=== PATIENT | female | born 1945 | race Caucasian/White ===

== ENCOUNTER 2023-01-23 14:51 | Outpatient (REF) | payer MEDICARE, SELFPAY ==
[2023-01-25 09:09] LABS: IgE 436 IU/mL (<158)
[2023-01-25 09:58] LABS: IgA 422 mg/dL (85-499); IgG 984 mg/dL (610-1616); IgM 84 mg/dL (35-242)
== END 2023-01-23 14:52 | disposition home or self-care (01) ==
LOC: LBN 14:51
PROVIDERS: PCP Registered Nurse; Visit Provider Student in an Organized Health Care Education/Training Program
DX: J47.9 Bronchiectasis, uncomplicated (principal)
CPT/HCPCS: 82784; 82785

== ENCOUNTER 2023-02-02 02:15 | Outpatient (CLI) | payer MEDICARE, SELFPAY ==
[2023-02-02] MEDS: Albuterol HFA 18 GM 200 PUFF INH IH (14:36)
[2023-02-02] MEDS: Inhaler, Assist Device 1 EACH MC (14:37)
--- NOTE | 2023-02-06 09:04 | PFT_ITS ---
Date of service: 02/02/23 Time of Service: 13:05 Pulmonary Function Test Result Indications: Bronchiectasis Interpretation Spirometry: There is severe airflow limitation. There is no bronchodilator response. Brandon metry appears restrictive. Lung Volumes: There is air trapping Diffusion Capacity: Patient unable to perform Airway Pressure: Increased airways resistance. Impression Severe airflow obstruction with air trapping and increased airways resistance. Diffusion unable to be performed. Clinical Correlation therefore is recommended.
== END 2023-02-02 02:16 | disposition home or self-care (01) ==
LOC: RT 02:16
PROVIDERS: PCP Registered Nurse; Visit Provider Student in an Organized Health Care Education/Training Program
DX: J47.1 Bronchiectasis with (acute) exacerbation (principal)
CPT/HCPCS: 94060; 94726

== ENCOUNTER 2023-07-04 16:16 | Inpatient (IN) | payer MEDICARE, SELFPAY ==
[2023-07-04] VITALS (68 sets, daily range): BP systolic 81–188; BP diastolic 36–88; PULSE 60–116; RESP 1–56; TEMP 36.5–36.9; O2SAT 74–100
--- NOTE | 2023-07-04 16:15 | RT.EKG_ITS ---
APPROVED REPORT Exam: Resting ECG Reason for Exam: sob Patient Location: E HR:81 bpm ECG Measurements Heart Rate 81 AXIS VT 146 P 71 QRSd 100 QRS 79 QT 359 T 54 QTc 417 Conclusion Sinus rhythm...normal P axis, V-rate 60- 99 Normal sinus rhythm at a rate of 81 with interventricular conduction delay and QRS of 100 ms. Normal axis. QTc and VT within normal limits. No acute injury manner. No prior for comparison.
--- NOTE | 2023-07-04 16:15 | DI.RAD_ITS ---
Exam(s) XR PORTABLE CHEST AP EXAM: XR PORTABLE CHEST AP CLINICAL HISTORY: SOB, PUI. TECHNIQUE: 2D digital imaging was performed. COMPARISON: No exams were available for comparison FINDINGS: Single AP portable view. Heart size is upper normal. The mediastinum is not widened. COPD findings but no confluent infiltrates nor pleural effusions. No pulmonary edema. IMPRESSION: No acute pulmonary findings on this single AP portable view of the chest. DATA REPOSITORY: RADIATION DOSE DELIVERED:
--- NOTE | 2023-07-04 16:36 | ED.GENADUL_ITS ---
Discharge Plan Discharge Details Chief Complaint: SOB Clinical Impression: COPD exacerbation, Bronchiectasis Admit Date/Time: 07/04/23 21:02 Admit Provider: Nilesh Johns Attending Provider: Nilesh Johns Primary Care Provider: JULIA BILLY ED Provider: Karla Hoffmann Discharge Data Discharge Date/Time-TO BE ENTERED AT DEPARTURE: 07/04/23 22:09 Medical Decision Making 77-year-old female with a past medical history of coronary artery disease, hyper tension, COPD, bronchiectasis with a recent diagnosis of pneumonia being treated with Bactrim and levofloxacin presents to the ER after worsening shortness of breath and congested sounding cough over the last couple weeks. Patient was sent here by the pulmonology office. She had been refusing to be evaluated in the emergency department. She does have increased shortness of breath with activity feeling lightheaded. She did take an albuterol neb this morning. She did finish her antibiotics on Monday. She is prescribed Innozide and albuterol inhaler. Upon arrival she is tachypneic, pursed lip breathing, prolonged expiratory period, she does have rhonchi bilaterally diminished in the bases, congestedcough, RT called and is at BS. Patient back down to 2L N/C which is her baseline. RT to obtain sputum culture, work-up ordered including CBC CMP, serial troponins, VBG, lactate and blood cultures. FLUVID swab, portable chest x-ray. DuoNeb ordered, 125 mg Solu-Medrol. VBG shows pH of 7.25, PCO2 65 bicarb 29 lactate is 2.0. No leukocytosis platelet count is 407 500 cc normal saline IV bolus ordered, BiPAP ordered, RT aware. 1739: Patient placed on BIPAP, tolerating well per RT, ABG ordered for 1809. ABG shows improvement in PH and CO2, CO2 48 down from 65. 1843: Patient had a break from BIpap, is being placed back on Bipap, I did discuss recommendation for admission with patient and daughter who are agreeable to admission, I did discuss code status with her, she does wish to be intubated and resuscitated if needed. 1941: Patient took Bipap off, RT paged. Repeat Trop negative. 2010: Hospitalist paged 2017: Discussed case with Dr. Johns, he agrees to come evaluate patient. Dr. Johns at BS for eval. Patient to be transferred up to floor. This text was generated using [employer] dictation system, please disregard any oddities of phrase or misspellings. Medical Records Medical records reviewed: Yes I reviewed the patient's medical records. Imaging Data Radiologic Study: Imaging: X-Ray Radiologist's impression: Exam: XR Chest Exam date and time: 07/04/2023 5:55 PM Age: 77 years old Clinical indication: Other: SOB, pui TECHNIQUE: Imaging protocol: Radiologic exam of the chest. Views: 1 view. COMPARISON: CT CHEST LOW DOSE FOLLOW UP 02/23/2022 3:07 PM FINDINGS: Lungs: Chronic changes in both lung bases. Superimposed infiltrate not excluded. Pleural spaces: Unremarkable. No pleural effusion. No pneumothorax. Heart/Mediastinum: Unremarkable. No cardiomegaly. Bones/joints: Unremarkable. IMPRESSION: Chronic underlying interstitial lung disease. Superimposed infi ltrate not excluded. Lab Data Lab results reviewed: Yes I reviewed the patient's lab results. Labs: 07/04/23 18:34 Sputum - Expectorated Sputum Culture - Pending 07/04/23 18:34 Sputum - Expectorated Gram Stain - Pending 07/04/23 17:20 Blood Blood Culture - Pending 07/04/23 16:42 Blood Blood Culture - Pending Laboratory Tests Range/Units 07/04/23 07/04/23 07/04/23 16:42 16:42 16:42 WBC (4.4-10.8) 10^3/uL 10.56 RBC (3.93-5.22) 10^6/uL 3.83 L Hgb (11.2-15.7) g/dL 11.6 Hct (36.0-46.0) % 36.5 MCV (80-95) fL 95 MCH (27.0-33.0) pg 30.3 MCHC (32.0-36.0) % 31.8 L RDW (11.7-14.6) % 12.1 Plt Count (130-400) 10^3/uL 407 H MPV (8.0-11.0) fL 9.1 Immature Gran % 0.3 Neutrophils % 86.2 Lymphocytes % 6.6 Monocytes % 5.4 Eosinophils % 0.9 Basophils % 0.6 Nucleated RBC % (0.0-0.3) % 0.0 Absolute Neutrophils (1.2-6.7) 10^3/uL 9.10 H Absolute Lymphocytes (1.2-3.4) 10^3/uL 0.70 L Absolute Monocytes (0.1-0.8) 10^3/uL 0.57 Absolute Eosinophils (0.0-0.7) 10^3/uL 0.10 Absolute Basophils (0.0-0.2) 10^3/uL 0.06 ABG Sample Site ABG pH (7.35-7.45) ABG pCO2 (35-45) mmHg ABG pO2 (80-105) mmHg ABG HCO3 (22-26) mmol/L ABG Total CO2 (23-27) mmol/L ABG O2 Saturation (95-98) % ABG Base Excess (-2-3) mmol/L VBG pH (7.31-7.41) VBG pCO2 (41-51) mmHg VBG pO2 mmHg VBG HCO3 (23-28) mmol/L VBG Total CO2 (24-29) mmol/L VBG O2 Saturation % VBG Base Excess (-2-3) mmol/L VBG Lactate (0.6-1.4) mmol/L 2.0 H FiO2 % Sodium (136-145) mmol/L 130 L Potassium (3.5-5.1) mmol/L 4.7 Chloride (98-107) mmol/L 93 L Carbon Dioxide (21.0-32.0) mmol/L 28.4 Anion Gap (3-11) mmol/L 8.6 BUN (7-18) mg/dL 31 H Creatinine (0.55-1.02) mg/dL 1.7 H Est GFR (CKD-EPI 2020) (mL/min/1.73m2) 30.70 Glucose (74-106) mg/dL 123 H Calcium (8.5-10.1) mg/dL 10.0 Magnesium (1.8-2.4) mg/dL 2.1 Total Bilirubin (0.2-1.0) mg/dL 0.3 AST (15-37) U/L 25 ALT (14-59) U/L 20 Alkaline Phosphatase (46-116) U/L 77 Troponin I (<or=60) ng/L < 50 NT-Pro-B Natriuret Pep (<300) pg/mL 511 H Total Protein (6.4-8.2) g/dL 9.1 H Albumin (3.4-5.0) g/dL 4.1 COVID-19 Source SARS-CoV-2 (PCR) (Negative) Influenza Type A (PCR) (Negative) Influenza Type B (PCR) (Negative) RSV (PCR) (Negative) Range/Units 07/04/23 07/04/23 07/04/23 16:42 16:42 18:15 WBC (4.4-10.8) 10^3/uL RBC (3.93-5.22) 10^6/uL Hgb (11.2-15.7) g/dL Hct (36.0-46.0) % MCV (80-95) fL MCH (27.0-33.0) pg MCHC (32.0-36.0) % RDW (11.7-14.6) % Plt Count (130-400) 10^3/uL MPV (8.0-11.0) fL Immature Gran % Neutrophils % Lymphocytes % Monocytes % Eosinophils % Basophils % Nucleated RBC % (0.0-0.3) % Absolute Neutrophils (1.2-6.7) 10^3/uL Absolute Lymphocytes (1.2-3.4) 10^3/uL Absolute Monocytes (0.1-0.8) 10^3/uL Absolute Eosinophils (0.0-0.7) 10^3/uL Absolute Basophils (0.0-0.2) 10^3/uL ABG Sample Site Right Radial ABG pH (7.35-7.45) 7.33 L ABG pCO2 (35-45) mmHg 48 H ABG pO2 (80-105) mmHg 87 ABG HCO3 (22-26) mmol/L 26 ABG Total CO2 (23-27) mmol/L 24 ABG O2 Saturation (95-98) % 97 ABG Base Excess (-2-3) mmol/L -1 VBG pH (7.31-7.41) 7.25 L VBG pCO2 (41-51) mmHg 65 H* VBG pO2 mmHg 26 VBG HCO3 (23-28) mmol/L 29 H VBG Total CO2 (24-29) mmol/L 28 VBG O2 Saturation % 35 VBG Base Excess (-2-3) mmol/L 2 VBG Lactate (0.6-1.4) mmol/L FiO2 % 30 Sodium (136-145) mmol/L Potassium (3.5-5.1) mmol/L Chloride (98-107) mmol/L Carbon Dioxide (21.0-32.0) mmol/L Anion Gap (3-11) mmol/L BUN (7-18) mg/dL Creatinine (0.55-1.02) mg/dL Est GFR (CKD-EPI 2020) (mL/min/1.73m2) Glucose (74-106) mg/dL Calcium (8.5-10.1) mg/dL Magnesium (1.8-2.4) mg/dL Total Bilirubin (0.2-1.0) mg/dL AST (15-37) U/L ALT (14-59) U/L Alkaline Phosphatase (46-116) U/L Troponin I (<or=60) ng/L NT-Pro-B Natriuret Pep (<300) pg/mL Total Protein (6.4-8.2) g/dL Albumin (3.4-5.0) g/dL COVID-19 Source Nasopharynx SARS-CoV-2 (PCR) (Negative) Negative Influenza Type A (PCR) (Negative) Negative Influenza Type B (PCR) (Negative) Negative RSV (PCR) (Negative) Negative HPI General Mode of arrival: wheelchair . Date/Time Provider Initiated Documentation: 07/04/23 16:18 . Limitations to Documentation: no limitations . Information obtained by: patient, family, RN notes reviewed and old records reviewed . HPI Narrative: 77-year-old female with a past medical history of coronary artery disease, hypertension, COPD, bronchiectasis with a recent diagnosis of pneumonia being treated with Bactrim and levofloxacin presents to the ER after worsening shortness of breath and junky sounding cough over the last couple weeks. Patient was sent here by the pulmonology office. She had been refusing to be evaluated in the emergency department. She does have increased shortness of breath with activity feeling lightheaded. She did take an albuterol neb this morning. She did finish her antibiotics on Monday. She is prescribed Innozide and albuterol inhaler. Upon arrival she is tachypneic, pursed lip breathing, prolonged expiratory period, she does have rhonchi bilaterally diminished in the bases, congestedcough, RT called and is at BS. Patient back down to 2L N/C which is her baseline. Related Data Home Medications Medication Instructions Recorded Confirmed cefuroxime axetil 500 mg tablet 500 mg PO Q12H 09/23/22 05/04/23 guaifenesin 100 mg/5 mL oral syrup 200 mg PO DIRECTED PRN 09/23/22 07/04/23 metoprolol succinate 50 mg 50 mg PO DAILY 09/23/22 07/04/23 tablet,extended release 24 hr ramipril 5 mg capsule 5 mg PO DAILY 09/23/22 07/04/23 simvastatin 20 mg tablet 20 mg PO QHS 09/23/22 07/04/23 umeclidinium 62.5 mcg-vilanterol 1 inh inhalation DAILY 09/23/22 07/04/23 25 mcg/actuation powdr for inhalation (Anoro Ellipta) albuterol sulfate 90 mcg/actuation 2 puff inhalation Q6H PRN 01/23/23 07/04/23 aerosol inhaler budesonide 0.5 mg/2 mL suspension 0.5 mg (2 mL) inhalation BID #60 mL 05/08/23 07/04/23 for nebulization sodium chloride 7 % for 4 ml inhalation BID 30 days #240 mL 05/08/23 07/04/23 nebulization cefdinir 300 mg capsule 300 mg PO BID #20 caps 06/22/23 sulfamethoxazole 800 1 tab PO BID #20 tabs 06/22/23 mg-trimethoprim 160 mg tablet (Bactrim DS) albuterol sulfate 2.5 mg/3 mL 2.5 mg (3 mL) inhalation QID PRN 06/24/23 07/04/23 (0.083 %) solution for nebulization shortness of breath or wheezing #180 mL blunt needle, disposable 18 x 1 #100 ea 07/04/23 07/04/23 1/ ceftazidime 1 gram solution for 500 mg IV Q12H 30 days #25 ea 07/04/23 07/04/23 injection sodium chloride 0.9 % (flush) 5 ml IV DAILY 90 days #500 mL 07/04/23 07/04/23 Previous Rx's Medication Instructions Recorded budesonide 0.5 mg/2 mL suspension 0.5 mg (2 mL) inhalation BID #60 mL 05/08/23 for nebulization sodium chloride 7 % for 4 ml inhalation BID 30 days #240 mL 05/08/23 nebulization cefdinir 300 mg capsule 300 mg PO BID #20 caps 06/22/23 sulfamethoxazole 800 1 tab PO BID #20 tabs 06/22/23 mg-trimethoprim 160 mg tablet (Bactrim DS) albuterol sulfate 2.5 mg/3 mL 2.5 mg (3 mL) inhalation QID PRN 06/24/23 (0.083 %) solution for nebulization shortness of breath or wheezing #180 mL blunt needle, disposable 18 x 1 #100 ea 07/04/23 1 ceftazidime 1 gram solution for 500 mg IV Q12H 30 days #25 ea 07/04/23 injection sodium chloride 0.9 % (flush) 5 ml IV DAILY 90 days #500 mL 07/04/23 Allergies Allergy/AdvReac Type Severity Reaction Status Date / Time seasonal Allergy Unknown Uncoded 07/04/23 17:10 General Stated Complaint: SOB IRON: 2 Review of Systems All systems reviewed & are unremarkable except as noted in HPI and below Cardiovascular Cardiovascular: Reports dyspnea Respiratory Respiratory: Reports cough, Reports excessive phlegm production and Reports dyspnea PFSH All Active Problems COPD exacerbation (Acute) Personal history of nicotine dependence (Acute) CAD (coronary artery disease) (Chronic) Dependence on supplemental oxygen (Acute) Postmenopausal (Acute) Pain of right hip joint (Acute) Overweight (Acute) Osteopenia (Acute) Iron deficiency (Acute) Hypertensive disorder (Chronic) Familial combined hyperlipidemia (Acute) Depression (Chronic) COPD (chronic obstructive pulmonary disease) (Chronic) Bronchiectasis (Acute) Angio-edema (Acute) Allergic rhinitis (Acute) Acute exacerbation of chronic obstructive airways disease (Acute) Abnormal findings on diagnostic imaging of breast (Acute) Medical History Closed fracture of thoracic vertebra Surgical History H/O breast reconstruction left nipple removal 10/09/1998 H/O cataract extraction 11/09/16 H/O dilation and curettage Of uterus 10/09/83 H/O esophagogastroduodenoscopy History of colonoscopy 08/09/06 History of right oophorectomy right ovarian cyst Family History Mother Breast cancer Hx of heart artery stent Father Cancer Hx of coronary artery bypass surgery Sister Diabetes Hx of heart artery stent Brother Hypertension Social History Smoking/Tobacco Use Status: Former Tobacco Use tobacco type: cigarettes Quit D ate: 02/06/10 Pack-years: 46 Smoking risk assessment performed?: Yes Housing: house Do you feel safe at home: Yes Do you feel safe in your relationship?: Yes Exam Narrative Exam Narrative: Constitutional: Alert and oriented x3. Appears stated age. Normal body habitus. Head: Normocephalic, no trauma. Eyes: Pupils PERRL, Red reflex noted, EOM's intact. Eyelids symmetrical without lesions, discharge, or swelling. Chest: RRR, Normal S1, S2, distal pulses intact. Resp: Increased work of breathing, pursed lip breathing, prolonged expiration., Tripod position. Rales noted upper left, is hypoxic upon arrival on room air. Diminished to the bases. Abdomen: Soft, non-distended, Normoactive bowel sounds all 4 quads. Musculoskeletal: Unable to assess gait. No pitting edema noted to lower extremities. Skin: No suspicious rashes or lesions. Capillary refill less than 2 sec. Neurologic: Cranial nerves II-XII intact. Alert and oriented x 3. Motor: No deficits noted. Sensory: Intact bilaterally all 4 extremities. Hematologic/Lymphatic: No ecchymosis, no lymphadenopathy. Resp Effort & Inspection: labored, pursed lip breathing, tachypneic, tripod positioning, uses accessory muscles and prolonged expiratory phase Auscultation: diminished lung sounds bilaterally and rales on the right in the upper lung milligan and on the left in the upper lung milligan Cardio Rate: regular rate Course Vital Signs Vital signs: Vital Signs Temperature 36.5 C 07/04/23 16:20 Pulse 60 07/04/23 16:20 Respiratory Rate 30 H 07/04/23 16:20 Blood Pressure 188/60 H 07/04/23 16:20 Pulse Oximetry 74 L 07/04/23 16:20 Temperature 36.5 C 07/04/23 16:20 Temperature Source Oral 07/04/23 16:20 Pulse 60 07/04/23 16:20 Respiratory Rate 30 H 07/04/23 16:20 Blood Pressure 188/60 H 07/04/23 16:20 Blood Pressure Position Sitting 07/04/23 16:20 Pulse Oximetry 74 L 07/04/23 16:20 Oxygen Delivery Method Nasal Cannula 07/04/23 16:20 Oxygen Flow Rate 2 07/04/23 16:20 Pain Level 0 07/04/23 16:20 Lab/Test Results Lab/Test Results: 07/04/23 16:22 Blood Blood Culture - Pending 07/04/23 16:22 Blood Blood Culture - Pending
[2023-07-04] MEDS: Albuterol 2.5 MG/3 ML INH SOLN VIAL (16:42)
[2023-07-04 16:57] LABS: BE (Venous) 2 mmol/L (-2-3); HCO3 (Venous) 29 mmol/L (23-28); O2 Sat (Venous) 35 %; TCO2 (Venous) 28 mmol/L (24-29); pH (Venous) 7.25 (7.31-7.41); pO2 (Venous) 26 mmHg
[2023-07-04 16:58] LABS: Abs Immature Grans 0.03 10^3/uL (0.0-0.06); Absolute Basophil Count 0.06 10^3/uL (0.0-0.2); Absolute Monocyte Count 0.57 10^3/uL (0.1-0.8); Basophils % 0.6; Eosinophils % 0.9; HCT 36.5 % (36.0-46.0); HGB 11.6 g/dL (11.2-15.7); Immature Grans % 0.3; Lymphocytes % 6.6; MCH 30.3 pg (27.0-33.0); MCHC 31.8 % (32.0-36.0); MCV 95 fL (80-95); MPV 9.1 fL (8.0-11.0); Monocytes % 5.4; Neutrophils % 86.2; Platelet Count 407 10^3/uL (130-400); RBC 3.83 10^6/uL (3.93-5.22); RDW 12.1 % (11.7-14.6); RDW-SD 42.4 fL; WBC 10.56 10^3/uL (4.4-10.8)
[2023-07-04] MEDS: methylPREDNISolone SUCC 125 MG VIAL IVP (16:58)
[2023-07-04 16:59] LABS: pCO2 (Venous) 65 mmHg (41-51)
[2023-07-04 17:22] LABS: ALT 20 U/L (14-59); AST 25 U/L (15-37); Albumin 4.1 g/dL (3.4-5.0); Alkaline Phosphatase 77 U/L (46-116); Anion Gap 8.6 mmol/L (3-11); BUN 31 mg/dL (7-18); Bilirubin, Total 0.3 mg/dL (0.2-1.0); CO2 28.4 mmol/L (21.0-32.0); CREATININE 1.7 mg/dL (0.55-1.02); Chloride 93 mmol/L (98-107); Glucose 123 mg/dL (74-106); Magnesium 2.1 mg/dL (1.8-2.4); NT-proBNP 511 pg/mL (<300); Potassium 4.7 mmol/L (3.5-5.1); Sodium 130 mmol/L (136-145); Total Protein 9.1 g/dL (6.4-8.2); Troponin I < 50 ng/L (<or=60)
[2023-07-04] MEDS: Normal Saline 500 ML IV (17:30)
[2023-07-04 17:48] LABS: COVID-19 PCR Negative (Negative); Influenza A PCR Negative (Negative); Influenza B PCR Negative (Negative); RSV PCR Negative (Negative)
[2023-07-04 17:50] LABS: Source Nasopharynx
[2023-07-04 18:23] LABS: BE -1 mmol/L (-2-3); HCO3 26 mmol/L (22-26); pCO2 48 mmHg (35-45); pH 7.33 (7.35-7.45); pO2 87 mmHg (80-105); sO2 97 % (95-98); tCO2 24 mmol/L (23-27)
[2023-07-04 18:24] LABS: Site Right Radial
[2023-07-04 18:25] LABS: FIO2 30 %
--- NOTE | 2023-07-04 19:41 | DI.VRAD_ITS ---
PROCEDURE INFORMATION: Exam: XR Chest Exam date and time: 07/04/2023 5:55 PM Age: 77 years old Clinical indication: Other: SOB, pui TECHNIQUE: Imaging protocol: Radiologic exam of the chest. Views: 1 view. COMPARISON: CT CHEST LOW DOSE FOLLOW UP 02/23/2022 3:07 PM FINDINGS: Lungs: Chronic changes in both lung bases. Superimposed infiltrate not excluded. Pleural spaces: Unremarkable. No pleural effusion. No pneumothorax. Heart/Mediastinum: Unremarkable. No cardiomegaly. Bones/joints: Unremarkable. IMPRESSION: Chronic underlying interstitial lung disease. Superimposed infiltrate not excluded. Dictated and Authenticated by: Laura Luo MD. Ordering:BRICE Acosta MD
[2023-07-04 20:03] LABS: Troponin I < 50 ng/L (<or=60)
[2023-07-04] MEDS: cefTAZidime 1,000 MG in Normal Saline 100 ML 200 MG IVPB (20:11)
--- NOTE | 2023-07-04 20:52 | HPE_ITS ---
Date of service: 07/04/23 Time of Service: 20:52 Assessment and Plan Assessment and plan (1) COPD exacerbation: Status: Acute Assessment and plan: COPD exacerbation. Will continue updrafts and steroids and has begun Ceftazidime here in ER. Will maintain on BiPaP overnight. I reviewed ADs in detail, with daughter present. After due consideration patient requests DNR/DNI status. History of Present Illness History of Present Illness Chief Complaint: SOB Narrative: 77 female with COPD, bronchiectasis. Has been on Bactrim/Levaquin for reported pneumonia. Seen in f/u in clinic and advised ER for worsening SOB. In ER on arrival was tachypneic with pursed lip breating. Initial VBG showed pH 7.25 with pCO2 65. Has received updrafts and steropids, and placed on BiPaP. F/u ABG shows pH 7.33, pCO2 48. No fever or leukocytosis; CXR shows no definite pneumonia. Patient is reported as having sputum colonized with Achromonas, sensitive to Ceftazidime, and Pulmonary had requested this be started. Patient statesd she feels improved, though not back to baseline. Review of Systems Narrative: per HPI PFSH All Active Problems COPD exacerbation (Acute) Personal history of nicotine dependence (Acute) CAD (coronary artery disease) (Chronic) Dependence on supplemental oxygen (Acute) Postmenopausal (Acute) Pain of right hip joint (Acute) Overweight (Acute) Osteopenia (Acute) Iron deficiency (Acute) Hypertensive disorder (Chronic) Familial combined hyperlipidemia (Acute) Depression (Chronic) COPD (chronic obstructive pulmonary disease) (Chronic) Bronchiectasis (Acute) Angio-edema (Acute) Allergic rhinitis (Acute) Acute exacerbation of chronic obstructive airways disease (Acute) Abnormal findings on diagnostic imaging of breast (Acute) Medical History Closed fracture of thoracic vertebra Surgical History H/O breast reconstruction left nipple removal 10/09/1998 H/O cataract extraction 11/09/16 H/O dilation and curettage Of uterus 10/09/83 H/O esophagogastroduodenoscopy History of colonoscopy 08/09/06 History of right oophorectomy right ovarian cyst Family History Mother Breast cancer Hx of heart artery stent Father Cancer Hx of coronary artery bypass surgery Sister Diabetes Hx of heart artery stent Brother Hypertension Social History Smoking/Tobacco Use Status: Former Tobacco Use tobacco type: cigarettes Quit Date: 02/06/10 Pack-years: 46 Smoking risk assessment performed?: Yes Housing: house Do you feel safe at home: Yes Do you feel safe in your relationship?: Yes Meds Allergies and Home Medications Allergies Allergy/AdvReac Type Severity Reaction Status Date / Time seasonal Allergy Unknown Uncoded 07/04/23 17:10 Home Medications Medication Instructions Recorded Confirmed Type cefuroxime axetil 500 mg tablet 500 mg PO Q12H 09/23/22 05/04/23 History guaifenesin 100 mg/5 mL oral syrup 200 mg PO DIRECTED PRN 09/23/22 07/04/23 History metoprolol succinate 50 mg 50 mg PO DAILY 09/23/22 07/04/23 History tablet,extended release 24 hr ramipril 5 mg capsule 5 mg PO DAILY 09/23/22 07/04/23 History simvastatin 20 mg tablet 20 mg PO QHS 09/23/22 07/04/23 History umeclidinium 62.5 mcg-vilanterol 1 inh inhalation DAILY 09/23/22 07/04/23 History 25 mcg/actuation powdr for inhalation (Anoro Ellipta) albuterol sulfate 90 mcg/actuation 2 puff inhalation Q6H PRN 01/23/23 07/04/23 History aerosol inhaler budesonide 0.5 mg/2 mL suspension 0.5 mg (2 mL) inhalation BID #60 mL 05/08/23 07/04/23 Rx for nebulization sodium chloride 7 % for 4 ml inhalation BID 30 days #240 mL 05/08/23 07/04/23 Rx nebulization cefdinir 300 mg capsule 300 mg PO BID #20 caps 06/22/23 Rx sulfamethoxazole 800 1 tab PO BID #20 tabs 06/22/23 Rx mg-trimethoprim 160 mg tablet (Bactrim DS) albuterol sulfate 2.5 mg/3 mL 2.5 mg (3 mL) inhalation QID PRN 06/24/23 07/04/23 Rx (0.083 %) solution for nebulization shortness of breath or wheezing #180 mL blunt needle, disposable 18 x 1 #100 ea 07/04/23 07/04/23 Rx 1/2 ceftazidime 1 gram solution for 500 mg IV Q12H 30 days #25 ea 07/04/23 07/04/23 Rx injection sodium chloride 0.9 % (flush) 5 ml IV DAILY 90 days #500 mL 07/04/23 07/04/23 Rx Exam Narrative Exam Narrative: 139/74, 88, 36.5, 36, 96% 30% BiPaP. HEENT atraumatic; neck supple; lungs diminished, end expiratory wheeze; heart distant/RRR; abdomen soft and NT; extremities w/o edema; neuro Ox3, lucid, moves all 4s Results Labs 07/04/23 16:42 07/04/23 16:42 Labs: Laboratory Results - last 24 hr 07/04/23 07/04/23 07/04/23 16:42 16:42 16:42 WBC 10.56 RBC 3.83 L Hgb 11.6 Hct 36.5 MCV 95 MCH 30.3 MCHC 31.8 L RDW 12.1 Plt Count 407 H MPV 9.1 Immature Gran % 0.3 Neutrophils % 86.2 Lymphocytes % 6.6 Monocytes % 5.4 Eosinophils % 0.9 Basophils % 0.6 Nucleated RBC % 0.0 Absolute Neutrophils 9.10 H Absolute Lymphocytes 0.70 L Absolute Monocytes 0.57 Absolute Eosinophils 0.10 Absolute Basophils 0.06 ABG Sample Site ABG pH ABG pCO2 ABG pO2 ABG HCO3 ABG Total CO2 ABG O2 Saturation ABG Base Excess VBG pH VBG pCO2 VBG pO2 VBG HCO3 VBG Total CO2 VBG O2 Saturation VBG Base Excess VBG Lactate 2.0 H FiO2 Sodium 130 L Potassium 4.7 Chloride 93 L Carbon Dioxide 28.4 Anion Gap 8.6 BUN 31 H Creatinine 1.7 H Est GFR (CKD-EPI 2020) 30.70 Glucose 123 H Calcium 10.0 Magnesium 2.1 Total Bilirubin 0.3 AST 25 ALT 20 Alkaline Phosphatase 77 Troponin I < 50 NT-Pro-B Natriuret Pep 511 H Total Protein 9.1 H Albumin 4.1 COVID-19 Source SARS-CoV-2 (PCR) Influenza Type A (PCR) Influenza Type B (PCR) RSV (PCR) 07/04/23 07/04/23 07/04/23 16:42 16:42 18:15 WBC RBC Hgb Hct MCV MCH MCHC RDW Plt Count MPV Immature Gran % Neutrophils % Lymphocytes % Monocytes % Eosinophils % Basophils % Nucleated RBC % Absolute Neutrophils Absolute Lymphocytes Absolute Monocytes Absolute Eosinophils Absolute Basophils ABG Sample Site Right Radial ABG pH 7.33 L ABG pCO2 48 H ABG pO2 87 ABG HCO3 26 ABG Total CO2 24 ABG O2 Saturation 97 ABG Base Excess -1 VBG pH 7.25 L VBG pCO2 65 H* VBG pO2 26 VBG HCO3 29 H VBG Total CO2 28 VBG O2 Saturation 35 VBG Base Excess 2 VBG Lactate FiO2 30 Sodium Potassium Chloride Carbon Dioxide Anion Gap BUN Creatinine Est GFR (CKD-EPI 2020) Glucose Calcium Magnesium Total Bilirubin AST ALT Alkaline Phosphatase Troponin I NT-Pro-B Natriuret Pep Total Protein Albumin COVID-19 Source Nasopharynx SARS-CoV-2 (PCR) Negative Influenza Type A (PCR) Negative Influenza Type B (PCR) Negative RSV (PCR) Negative 07/04/23 19:26 WBC RBC Hgb Hct MCV MCH MCHC RDW Plt Count MPV Immature Gran % Neutrophils % Lymphocytes % Monocytes % Eosinophils % Basophils % Nucleated RBC % Absolute Neutrophils Absolute Lymphocytes Absolute Monocytes Absolute Eosinophils Absolute Basophils ABG Sample Site ABG pH ABG pCO2 ABG pO2 ABG HCO3 ABG Total CO2 ABG O2 Saturation ABG Base Excess VBG pH VBG pCO2 VBG pO2 VBG HCO3 VBG Total CO2 VBG O2 Saturation VBG Base Excess VBG Lactate FiO2 Sodium Potassium Chloride Carbon Dioxide Anion Gap BUN Creatinine Est GFR (CKD-EPI 2020) Glucose Calcium Magnesium Total Bilirubin AST ALT Alkaline Phosphatase Troponin I < 50 NT-Pro-B Natriuret Pep Total Protein Albumin COVID-19 Source SARS-CoV-2 (PCR) Influenza Type A (PCR) Influenza Type B (PCR) RSV (PCR) Last Vital Signs Temp 36.5 C 07/04/23 16:20 Pulse 88 07/04/23 20:16 Resp 36 H 07/04/23 20:20 BP 139/74 07/04/23 20:16 Pulse Ox 97 07/04/23 20:20 Time Spent Time spent with Patient: 40-54 minutes Time was spent: preparing to see the patient(eg.review tests), obtaining and/or reviewing separately otained hiistory, ordering medications,tests, procedures, referring, communicating with other health personal care worker and indepentently interpreting results
[2023-07-04] MEDS: Simvastatin 20 MG TAB PO (22:37)
[2023-07-04] MEDS: Melatonin 3 MG TAB 6 MG PO (22:37)
[2023-07-04] MEDS: Normal Saline Flush 10 ML SYR IVP (22:38)
[2023-07-05] VITALS (14 sets, daily range): BP systolic 100–146; BP diastolic 54–63; PULSE 74–109; RESP 2–40; TEMP 36.2–36.8; O2SAT 92–98
[2023-07-05] MEDS: methylPREDNISolone SUCC 40 MG VIAL IVP ×3 (00:59→17:38)
[2023-07-05] MEDS: Albuterol/Ipratropium 3 ML UPD VIAL UPD ×4 (04:36→22:50)
[2023-07-05] MEDS: Metoprolol CR 50 MG TABCR PO (07:47)
[2023-07-05] MEDS: Normal Saline Flush 10 ML SYR IVP ×2 (07:47→21:32)
[2023-07-05] MEDS: cefTAZidime 1,000 MG in Normal Saline 100 ML 200 MG IVPB ×2 (10:03→21:31)
--- NOTE | 2023-07-05 10:59 | INITIAL_ITS ---
Date of service: 07/05/23 Time of Service: 11:04 Care Management Initial Assmt Initial Assessment REASON FOR HOSPITALIZATION:: COPD PREVIOUS FUNCTIONAL STATUS/SOCIAL/FAMILY SUPPORTS:: Yojana lives in [place], [place], with her Nilesh. Their granddaughter, Traci, lives with them, but is a speech and language specialist college student, so she is not home during the day. Their daughter, Estela lives nearby and is very supportive. Yojana's mobility is limited by her breathing, and she is not able to easily get around her home. She is independent with her ADL's, but does not move very far without needing to stop and take a break. Her family is very supportive. CURRENT FUNCTIONAL STATUS:: Yojana was lying in bed when CM met with her. Her , daughter, and granddaughter were in the room visiting. Yojana stated that her mobility has been limited for years, due to her oxygen dependency, but it has been much worse over the past six weeks, as she has not been feeling well. Estela, her daughter, stated that she recently spoke to [facility] about getting more support at home, but Yojana needs to sign a release for Estela to help with planning. CM called [facility], and suggested that they fax the release here, and CM will assist with having it signed, or [facility] can meet them while she is hospitalized. CM also provided them with [facility] and [place] AD forms, although Yojana was not able to fill them out at that time. CM will discuss this with them further prior to discharge. CM requested a PT consult, as well as a Palliative care consult. Yojana stated that she does not want to go to a SNF, and wants to make sure her wishes are known. CM will continue to follow. ADVANCE DIRECTIVES:: Not on file; CM offered forms. Palliative care consulted. Has patient been provided with info about the portal/API?: Yes Did the patient sign up for the portal?: No CODE STATUS:: DNR/DNI INSURANCE COVERAGE / FINANCIAL ISSUES:: [facility] supplemental. CURRENT HOME/COMMUNITY SERVICES/EQUIPMENT:: No current services. Yojana has home O2 (baseline 2L), and a walker. PRIMARY CARE PHYSICIAN:: Beryl Cheung POTENTIAL DISCHARGE NEEDS:: Evaluations for further needs, follow up appointments. PATIENT/FAMILY EDUCATION NEEDS:: Review discharge instructions and limitations, discussion of self care needs including ask me three. ANTICIPATED BARRIERS TO DISCHARGE:: None anticipated. TRANSPORTATION:: Via private vehicle by family. PLAN:: Anticipate Yojana will return home once medically cleared, with new orders for HH RN, PT, OT, [employer], through [facility]. Her will drive her home via private vehicle. She will follow up with her PCP and discharge plan of care. CM will continue to follow. PFSH All Active Problems COPD exacerbation (Acute) Personal history of nicotine dependence (Acute) CAD (coronary artery disease) (Chronic) Dependence on supplemental oxygen (Acute) Postmenopausal (Acute) Pain of right hip joint (Acute) Overweight (Acute) Osteopenia (Acute) Iron deficiency (Acute) Hypertensive disorder (Chronic) Familial combined hyperlipidemia (Acute) Depression (Chronic) COPD (chronic obstructive pulmonary disease) (Chronic) Bronchiectasis (Acute) Angio-edema (Acute) Allergic rhinitis (Acute) Acute exacerbation of chronic obstructive airways disease (Acute) Abnormal findings on diagnostic imaging of breast (Acute) Medical History Closed fracture of thoracic vertebra Surgical History H/O breast reconstruction left nipple removal 10/09/1998 H/O cataract extraction 11/09/16 H/O dilation and curettage Of uterus 10/09/83 H/O esophagogastroduodenoscopy History of colonoscopy 08/09/06 History of right oophorectomy right ovarian cyst Family History Mother Breast cancer Hx of heart artery stent Father Cancer Hx of coronary artery bypass surgery Sister Diabetes Hx of heart artery stent Brother Hypertension Social History Smoking/Tobacco Use Status: Former Tobacco Use tobacco type: cigarettes Quit Date: 02/06/10 Pack-years: 46 Smoking risk assessment performed?: Yes Housing: house Do you feel safe at home: Yes Do you feel safe in your relationship?: Yes
--- NOTE | 2023-07-05 12:10 | W.PM.PROGNOT ---
Date of Service Date of service: 07/05/23 Time of Service: 12:10 Assessment and Plan Assessment and plan (1) COPD exacerbation: Status: Acute Assessment and plan: COPD exacerbation. Will continue updrafts and steroids Continue Ceftazidime Continue BiPap Trend labs and vital signs BC pending (2) CAD (coronary artery disease): Status: Chronic Assessment and plan: Continue Simvasatin and metoprolol (3) Dependence on supplemental oxygen: Status: Acute Assessment and plan: On oxygen at home 2 lpm continuous (4) DVT prophylaxis: Status: Acute Assessment and plan: enoxaparin 40 mg sc q24h (5) Discharge planning issues: Status: Acute Assessment and plan: Home when at baseline and medically stable Subjective Subjective Patient reports: no new complaints, tolerating liquids well, tolerating a regular diet, voiding w/o difficulty, shortness of breath and afebrile; denies diarrhea, nausea or vomiting Interval history since last seen: Continues to have complaints and physical signs of increased wob and sob, patient states she feels like the air isn't staying in my lungs. She was put back on BiPap for awhile today and improved. Exam Narrative Exam Narrative: Constitutional: Alert and oriented x3. Appears stated age. Normal body habitus. Head: Normocephalic, no trauma. Eyes: Pupils PERRL, Red reflex noted, EOM's intact. Eyelids symmetrical without lesions, discharge, or swelling. Chest: RRR, Normal S1, S2, distal pulses intact. Resp: Increased work of breathing, pursed lip breathing, prolonged expiration, distant breath sounds, some exp wheeze . Abdomen: Soft, non-distended, Normoactive bowel sounds all 4 quads. Musculoskeletal: Unable to assess gait. No pitting edema noted to lower extremities. Skin: No suspicious rashes or lesions. Capillary refill less than 2 sec. Neurologic: Cranial nerves II-XII intact. Alert and oriented x 3. Motor: No deficits noted. Sensory: Intact bilaterally all 4 extremities. Hematologic/Lymphatic: No ecchymosis, no lymphadenopathy. Resp Effort & Inspection: labored, pursed lip breathing, tachypneic, tripod positioning, uses accessory muscles and prolonged expiratory phase Auscultation: diminished lung sounds bilaterally and rales on the right in the upper lung milligan and on the left in the upper lung milligan Cardio Rate: regular rate Objective Last Vital Signs Temp 36.2 C L 07/05/23 07:52 Pulse 87 07/05/23 08:09 Resp 20 07/05/23 08:09 BP 133/63 07/05/23 07:52 Pulse Ox 96 07/05/23 08:09 Laboratory Results - last 24 hr 07/04/23 07/04/23 07/04/23 16:42 16:42 16:42 WBC 10.56 RBC 3.83 L Hgb 11.6 Hct 36.5 MCV 95 MCH 30.3 MCHC 31.8 L RDW 12.1 Plt Count 407 H MPV 9.1 Immature Gran % 0.3 Neutrophils % 86.2 Lymphocytes % 6.6 Monocytes % 5.4 Eosinophils % 0.9 Basophils % 0.6 Nucleated RBC % 0.0 Absolute Neutrophils 9.10 H Absolute Lymphocytes 0.70 L Absolute Monocytes 0.57 Absolute Eosinophils 0.10 Absolute Basophils 0.06 ABG Sample Site ABG pH ABG pCO2 ABG pO2 ABG HCO3 ABG Total CO2 ABG O2 Saturation ABG Base Excess VBG pH VBG pCO2 VBG pO2 VBG HCO3 VBG Total CO2 VBG O2 Saturation VBG Base Excess VBG Lactate 2.0 H FiO2 Sodium 130 L Potassium 4.7 Chloride 93 L Carbon Dioxide 28.4 Anion Gap 8.6 BUN 31 H Creatinine 1.7 H Est GFR (CKD-EPI 2020) 30.70 Glucose 123 H Calcium 10.0 Magnesium 2.1 Total Bilirubin 0.3 AST 25 ALT 20 Alkaline Phosphatase 77 Troponin I < 50 NT-Pro-B Natriuret Pep 511 H Total Protein 9.1 H Albumin 4.1 COVID-19 Source SARS-CoV-2 (PCR) Influenza Type A (PCR) Influenza Type B (PCR) RSV (PCR) 07/04/23 07/04/23 07/04/23 16:42 16:42 18:15 WBC RBC Hgb Hct MCV MCH MCHC RDW Plt Count MPV Immature Gran % Neutrophils % Lymphocytes % Monocytes % Eosinophils % Basophils % Nucleated RBC % Absolute Neutrophils Absolute Lymphocytes Absolute Monocytes Absolute Eosinophils Absolute Basophils ABG Sample Site Right Radial ABG pH 7.33 L ABG pCO2 48 H ABG pO2 87 ABG HCO3 26 ABG Total CO2 24 ABG O2 Saturation 97 ABG Base Excess -1 VBG pH 7.25 L VBG pCO2 65 H* VBG pO2 26 VBG HCO3 29 H VBG Total CO2 28 VBG O2 Saturation 35 VBG Base Excess 2 VBG Lactate FiO2 30 Sodium Potassium Chloride Carbon Dioxide Anion Gap BUN Creatinine Est GFR (CKD-EPI 2020) Glucose Calcium Magnesium Total Bilirubin AST ALT Alkaline Phosphatase Troponin I NT-Pro-B Natriuret Pep Total Protein Albumin COVID-19 Source Nasopharynx SARS-CoV-2 (PCR) Negative Influenza Type A (PCR) Negative Influenza Type B (PCR) Negative RSV (PCR) Negative 07/04/23 19:26 WBC RBC Hgb Hct MCV MCH MCHC RDW Plt Count MPV Immature Gran % Neutrophils % Lymphocytes % Monocytes % Eosinophils % Basophils % Nucleated RBC % Absolute Neutrophils Absolute Lymphocytes Absolute Monocytes Absolute Eosinophils Absolute Basophils ABG Sample Site ABG pH ABG pCO2 ABG pO2 ABG HCO3 ABG Total CO2 ABG O2 Saturation ABG Base Excess VBG pH VBG pCO2 VBG pO2 VBG HCO3 VBG Total CO2 VBG O2 Saturation VBG Base Excess VBG Lactate FiO2 Sodium Potassium Chloride Carbon Dioxide Anion Gap BUN Creatinine Est GFR (CKD-EPI 2020) Glucose Calcium Magnesium Total Bilirubin AST ALT Alkaline Phosphatase Troponin I < 50 NT-Pro-B Natriuret Pep Total Protein Albumin COVID-19 Source SARS-CoV-2 (PCR) Influenza Type A (PCR) Influenza Type B (PCR) RSV (PCR) Time Spent with Patient Time Spent with Patient: 35-49 minutes Time was spent: preparing to see the patient(eg.review tests), ordering medications,tests, procedures, referring, communicating with other health insurance healthcare consultant, indepentently interpreting results, counseling the patient and care coordination
[2023-07-05 13:29] LABS: BE (Venous) 0 mmol/L (-2-3); HCO3 (Venous) 26 mmol/L (23-28); O2 Sat (Venous) 76 %; TCO2 (Venous) 24 mmol/L (24-29); pCO2 (Venous) 46 mmHg (41-51); pH (Venous) 7.35 (7.31-7.41); pO2 (Venous) 42 mmHg
[2023-07-05 13:32] LABS: Lactate 1.9 mmol/L (0.6-1.4)
[2023-07-05] MEDS: Albuterol 2.5 MG/3 ML INH SOLN VIAL UPD (14:20)
[2023-07-05] MEDS: LORazepam 2 MG/ML VIAL 0.5 MG IVP ×2 (14:33→21:57)
[2023-07-05] MEDS: Normal Saline 1,000 ML 100 ML IV (20:00)
[2023-07-05] MEDS: Melatonin 3 MG TAB 6 MG PO (21:30)
[2023-07-05] MEDS: Benzonatate 100 MG CAP PO (21:31)
[2023-07-05] MEDS: guaiFENesin 600 MG TABCR PO (21:31)
[2023-07-06] VITALS (17 sets, daily range): BP systolic 126–149; BP diastolic 62–75; PULSE 75–112; RESP 1–31; TEMP 35.8–36.6; O2SAT 88–99
[2023-07-06] MEDS: methylPREDNISolone SUCC 40 MG VIAL IVP ×2 (01:08→08:45)
[2023-07-06] MEDS: Normal Saline Flush 10 ML SYR IVP ×2 (01:08→22:20)
[2023-07-06] MEDS: LORazepam 2 MG/ML VIAL 0.5 MG IVP ×2 (04:21→22:19)
[2023-07-06] MEDS: Albuterol/Ipratropium 3 ML UPD VIAL UPD ×4 (04:30→20:53)
[2023-07-06] MEDS: Normal Saline 1,000 ML 100 ML IV ×2 (07:20→19:38)
[2023-07-06] MEDS: Metoprolol CR 50 MG TABCR PO (08:08)
[2023-07-06] MEDS: Enoxaparin 30 MG/0.3 ML SYR SC (08:08)
[2023-07-06] MEDS: guaiFENesin 600 MG TABCR PO ×2 (08:08→20:42)
[2023-07-06] MEDS: Benzonatate 100 MG CAP PO ×3 (08:08→20:42)
--- NOTE | 2023-07-06 08:24 | PUCON_ITS ---
General Date Of Service Date of service: 07/06/23 Time of Service: 08:30 Assessment and Plan Assessment and plan (1) Respiratory failure with hypoxia: Status: Acute (2) Respiratory failure with hypercapnia: Status: Acute (3) Pulmonary hypertension: Status: Acute (4) Bronchiectasis: Status: Acute (5) COPD (chronic obstructive pulmonary disease): Status: Chronic (6) Acute and chronic respiratory failure: Status: Acute Assessment and plan: 77 year old female in acute on chronic respiratory failure secondary to COPD and bronchiectasis exacerbation. She has been treated with BiPAP but continues to have increased WOB and SOB. She holds a history of mild pulmonary hypertention (02/2023 44mmHg) so I would consider an echo to assess RV function and RSVP. Pocus exam performed at the bedside was difficult to obtain but did not reveal a volume overload status (no B-lines, RV function appeared preserved) - I still recommend official echo. Update 11:30am: patient with decreased WOB, very comfortable on nasal cannula. Has been off BiPAP since breakfast. Acute on chronic respiratory failure - continue BiPAP prn and HS - recommend BiPAP settings to be a minimum of ipap 8 and epap 5 (which will result in a minimum pressure support of 3), but increase IPAP higher to maintain a comfortable RR (goal 12-16) and Vt (~400, +/- 50ml) Bronchiectasis - start nebulized budesonide BID - continue albuterol/atrovent nebs q6 - continue Acapella after nebulizer - colonized sputum culture with Achromobacter xylosoxidans. Resistant to yodit and amikacin. Susceptible to ceftazidime and bactrim COPD with exacerbation - continue stiolto daily (home medication is anoro) - continue IV steroids, switch to PO prior to discharge with home taper Pulmonary Hypertension - recommend echo History of Present Illness Narrative: 77 year old female who was an ED admission from our office 07/04/23. She has a history of COPD, bronchiectasis, hypoxic respiratory failure and mild pulmonary hypertension. She has had multiple sputum cultures in the past return with Achromobacter xylosoxidans which is resistant to inhaled tobramycin, gentamicin and amikacin. She historically has been on rotating antibiotics bactrim, cefuroxime, and Levaquin however, the bacteria is resistant to levaquin. She had become ill around the end of May with fevers, chills, increased cough with g reen mucus production and vomiting. She was unable to get out of bed or complete ADL's. She had a 10 pound weight loss over the past month due to lack of appetite and vomiting. Our office was contacted and she was encouraged to go to the ED at that time however, the patient refused. I was concerned for an exacerbation of bronchiectasis/pneumonia and treated her with 14 days of bactrim and cefdinir. I added albuterol nebulizers to her regimen (recommend HTS however too expensive for patient) and she was using her vibraPEP to aid in mucus clearance. At our follow up visit 07/04/23 her skin was dusky, she was in mild respiratory distress and continued to have a productive, rhonchorous cough. I sent her to the ED from the office and she was found to be in acute on chronic respiratory failure with hypercapnia. She was treated with BiPAP and started on Ceftazdamine. Her white count has been stable and CXR without focal consolidations. Today, she is feeling slightly better but not back to her baseline. She still is having difficulty breathing and does endorse feeling better when on the BiPAP. She has worn the BiPAP most of the day yesterday and overnight. She has an appetite and is tolerating liquids and solids. Review of Systems Constitutional Constitutional: Reports system reviewed and no additional complaints, except as documented PFSH All Active Problems (Updated 07/06/23 @ 08:56 by RODERICK Calvillo) Acute and chronic respiratory failure (Acute) Pulmonary hypertension (Acute) Respiratory failure with hypercapnia (Acute) Respiratory failure with hypoxia (Acute) Discharge planning issues (Acute) DVT prophylaxis (Acute) COPD exacerbation (Acute) Personal history of nicotine dependence (Acute) CAD (coronary artery disease) (Chronic) Dependence on supplemental oxygen (Acute) Postmenopausal (Acute) Pain of right hip joint (Acute) Overweight (Acute) Osteopenia (Acute) Iron deficiency (Acute) Hypertensive disorder (Chronic) Familial combined hyperlipidemia (Acute) Depression (Chronic) COPD (chronic obstructive pulmonary disease) (Chronic) Bronchiectasis (Acute) Angio-edema (Acute) Allergic rhinitis (Acute) Acute exacerbation of chronic obstructive airways disease (Acute) Abnormal findings on diagnostic imaging of breast (Acute) Medical History Closed fracture of thoracic vertebra Surgical History H/O breast reconstruction left nipple removal 10/09/1998 H/O cataract extraction 11/09/16 H/O dilation and curettage Of uterus 10/09/83 H/O esophagogastroduodenoscopy History of colonoscopy 08/09/06 History of right oophorectomy right ovarian cyst Family History Mother Breast cancer Hx of heart artery stent Father Cancer Hx of coronary artery bypass surgery Sister Diabetes Hx of heart artery stent Brother Hypertension Social History Smoking/Tobacco Use Status: Former Tobacco Use tobacco type: cigarettes Quit Date: 10/09/09 Pack-years: 46 Smoking risk assessment performed?: Yes Housing: house Do you feel safe at home: Yes Do you feel safe in your relationship?: Yes Visit Medication and Allergies Active Medications Generic Name Dose Route Start Last Admin Trade Name Freq PRN Reason Stop Dose Admin Acetaminophen 650 mg 07/04/23 21:05 Acetaminophen 325 Mg Tab PO Q4H PRN PRN Albuterol Sulfate 2.5 mg 07/04/23 21:02 07/05/23 14:20 Albuterol 2.5 Mg/3 Ml Inh Soln Vial UPD 2.5 mg Q4H PRN PRN Administration Albuterol/Ipratropium 3 ml 07/04/23 22:00 07/06/23 04:30 Albuterol/Ipratropium 3 Ml Upd Vial UPD 3 ml Q6H GERSON Administration Benzonatate 100 mg 07/05/23 20:00 07/06/23 08:08 Benzonatate 100 Mg Cap PO 100 mg TID GERSON Administration Enoxaparin Sodium 30 mg 07/06/23 08:30 07/06/23 08:08 Enoxaparin 30 Mg/0.3 Ml Syr SC 30 mg DAILY GERSON Administration Guaifenesin 600 mg 07/05/23 20:00 07/06/23 08:08 Guaifenesin 600 Mg Tabcr PO 600 mg BID GERSON Administration Ceftazidime 1,000 mg/ Sodium 100 mls @ 200 mls/hr 07/05/23 10:00 07/05/23 21:50 Chloride IVPB Infused Q12H GERSON Infusion Sodium Chloride 1,000 mls @ 100 mls/hr 07/05/23 13:15 07/06/23 07:20 Saline 1000ml Bag IV 100 mls/hr INFUSION GERSON Administration IV Miscellaneous Supplies 1 each 07/04/23 16:30 Iv Access-Emergency Dept IV DIRECTED GERSON Lorazepam 0.5 mg 07/05/23 14:21 07/06/23 04:21 Lorazepam 2 Mg/Ml Vial IVP 0.5 mg Q4H PRN PRN Administration Melatonin 6 mg 07/04/23 21:05 07/05/23 21:30 Melatonin 3 Mg Tab PO 6 mg HS PRN PRN Administration Insomnia Methylprednisolone Sodium Succinate 40 mg 07/05/23 00:00 07/06/23 01:08 Methylprednisolone Succ 40 Mg Vial IVP 40 mg Q8H GERSON Administration Metoprolol Succinate 50 mg 07/05/23 08:30 07/06/23 08:08 Metoprolol Cr 50 Mg Tabcr PO 50 mg DAILY GERSON Administration Simvastatin 20 mg 07/04/23 22:00 07/04/23 22:37 Simvastatin 20 Mg Tab PO 20 mg QPM GERSON Administration Sodium Chloride 0 ml 07/04/23 16:22 07/06/23 01:08 Normal Saline Flush 10 Ml Syr IVP 10 ml PRN PRN Administration Tiotropium [place]/Olodaterol 2 puff 07/06/23 08:30 Tiotropium/Olodaterol 10 Puff Inhaler IH DAILY GERSON Allergies seasonal Allergy (Unknown, Uncoded 07/04/23 17:10) Exam Const General: cooperative, acute distress mild and respiratory and lethargic Nutritional Appearance: well nourished Orientation: alert, awake and oriented x3 Resp Effort & Inspection: cough Quality of cough: productive, pursed lip breathing and tachypneic Auscultation: diminished lung sounds bilaterally throughout Cardio Rate: regular rate Rhythm: regular rhythm Heart Sounds: S1 normal and S2 normal Extrem Right lower extremity: no edema Left lower extremity: no edema Results Last Vital Signs Temp 96.4 F L 07/06/23 07:50 Pulse 90 07/06/23 07:50 Resp 18 07/06/23 07:50 BP 126/75 07/06/23 07:50 Pulse Ox 95 07/06/23 07:50 Labs 07/07/23 05:40 07/07/23 05:40 Labs: Laboratory Results - last 24 hr 07/05/23 07/05/23 13:23 13:23 VBG pH 7.35 VBG pCO2 46 VBG pO2 42 VBG HCO3 26 VBG Total CO2 24 VBG O2 Saturation 76 VBG Base Excess 0 VBG Lactate 1.9 H
--- NOTE | 2023-07-06 08:46 | CMPROGNOTE_ITS ---
Date of service: 07/06/23 Time of Service: 08:46 Care Management Progress Note Progress Note Text Progress Note Text: S/O: Marcie was lying in bed when CM met with her. Her daughter and granddaughters were visiting with her. She reported that she is feeling better today, but is still short of breath. She stated that she filled out her [place] AD; CM provided witnesses for her to sign. CM facilitated Marcie signing the release for [facility] as well. Palliative will meet with Marcie later this afternoon. CM will continue to follow. A: Yojana is a 77 year old female admitted to [facility] on 07/04/23 for COPD. P: Anticipate Yojana will return home once medically cleared, with new orders for HH RN, PT, OT, [employer], through [facility]. Her will drive her home via private vehicle. She will follow up with her PCP and discharge plan of care. CM will continue to follow.
--- NOTE | 2023-07-06 09:47 | NUR.NOTE ---
Nursing Note: Pt's left IV infiltrated contrast at CT. IV removed, cold compress applied, and arm elevated on pillows. Pt's primary nurse, healthcare recruiter, and hospitalist notifed. Per CC, order placed for midline. Will attempt CTA after midline is secured.
[2023-07-06] MEDS: cefTAZidime 1,000 MG in Normal Saline 100 ML 200 MG IVPB (10:06)
[2023-07-06] MEDS: Tiotropium/Olodaterol 10 PUFF INHALER 2 PUFF IH (10:38)
[2023-07-06 11:18] LABS: Abs Immature Grans 0.09 10^3/uL (0.0-0.06); Absolute Basophil Count 0.01 10^3/uL (0.0-0.2); Absolute Eosinophil Count 0.01 10^3/uL (0.0-0.7); Basophils % 0.1; Eosinophils % 0.1; HCT 30.9 % (36.0-46.0); HGB 9.7 g/dL (11.2-15.7); Immature Grans % 0.8; Lymphocytes % 2.6; MCH 30.2 pg (27.0-33.0); MCHC 31.4 % (32.0-36.0); MCV 96 fL (80-95); MPV 9.4 fL (8.0-11.0); Monocytes % 4.8; Neutrophils % 91.6; Platelet Count 318 10^3/uL (130-400); RBC 3.21 10^6/uL (3.93-5.22); RDW 12.6 % (11.7-14.6); RDW-SD 44.9 fL; WBC 11.36 10^3/uL (4.4-10.8)
[2023-07-06 11:20] LABS: Absolute Monocyte Count 0.55 10^3/uL (0.1-0.8); Absolute Neutrophil Count 10.41 10^3/uL (1.2-6.7)
[2023-07-06 11:29] LABS: Anion Gap 7.6 mmol/L (3-11); BUN 30 mg/dL (7-18); CO2 26.4 mmol/L (21.0-32.0); CREATININE 1.3 mg/dL (0.55-1.02); Calcium 9.5 mg/dL (8.5-10.1); Chloride 103 mmol/L (98-107); Estimated GFR 42.35 (mL/min/1.73m2); Glucose 161 mg/dL (74-106); Sodium 137 mmol/L (136-145)
--- NOTE | 2023-07-06 11:49 | DI.US_ITS ---
APPROVED REPORT EXAM: Comprehensive 2D, Doppler, and color-flow Echocardiogram Patient Location: In-Patient Room/Bed: 226 Reel Film Inspector: Jakob Laguna RDCS (AE) Indications: Increased difficulty breathing, COPD Other Information Study Quality: Fair. Technically limited study due to body habitus . Conclusion Normal left ventricular wall thickness and chamber size. Ejection fraction is 55%. Wall motion is n ormal Normal right ventricular size and systolic function Both atria are normal in size There is no structural or hemodynamically significant valvular disease Estimated right ventricular systolic pressure is 45 mmHg Trivial pericardial effusion Wall motion Left Ventricle The left ventricle is normal size. The overall left ventricular systolic function appears normal. Th ere is normal left ventricular wall thickness. There is normal LV segmental wall motion. There is no ventricular septal defect visualized. LVEF is 55%. Right Ventricle The right ventricle is normal size. The right ventricular systolic function is normal. Atria The left atrium size is normal. The right atrium size is normal. The interatrial septum is intact wit h no evidence for an atrial septal defect. Aortic Valve The aortic valve is normal in structure. Aortic valve is trileaflet. There is no aortic valvular sten osis. No aortic regurgitation is present. Mitral Valve The mitral valve is normal in structure. No evidence of mitral valve stenosis. Trace to mild mitral r egurgitation. Tricuspid Valve The tricuspid valve is normal in structure. There is no tricuspid valve stenosis. Trace tricuspid reg urgitation. The RVSP is 44.7 mmHg. Pulmonic Valve Pulmonic valve is not well visualized. There is no pulmonic valvular stenosis. There is no pulmonic v alvular regurgitation. Great Vessels The aortic root is normal in size. The ascending aorta is normal in size. Aortic arch is not well vis ualized. IVC is normal in size and collapses >50% with inspiration. Pericardium Trace pericardial effusion. 2D Dimensions IVSD d PLAX 0.76 cm F: 0.6-1.0 Ao Root d 2.42 cm F: 2.7 - 3.3 LVPW d PLAX 0.84 cm F: 0.6 - 1.0 Ao Asc Diam d 2.73 cm F: 2.3 - 3.1 LVID d PLAX 4.47 cm F: 3.8 - 5.2 LVDs 3.28 cm F: 2.2 - 3.5 LV EF Teichholz 52.3 % FS 26.65 % LV EDV (Teich) 90.8 mL LV ESV (Teich) 43.4 mL Auto EF LV EDV A4C 93.1 mL LV EDV A2C 80.9 mL LV EDV BP LV ESV A4C 42.5 mL LV ESV A2C 37.3 mL LV ESV BP LVEF(%) A4C 54.4 % LVEF(%) A2C 53.9 % LVEF(%) BP LV SV A4C 50.6 ml LV SV A2C 43.6 ml LV SV BP LV CO A4C 5.1 L/min LV CO A2C 4.7 L/min LV CO BP HR A4C 100.29 BPM HR A2C 108.44 BPM LV EDV Index (BP) LA Volume LA Length A4C 4.1 cm LA Length A2C 4.2 cm LA Area A4C s 10.14 cm2 LA Area A2C s 12.38 cm2 LA Vol A4C A-L 21.23 mL LA Vol A2C A-L 31.09 mL LA Vol Biplane A-L 25.9 mL LA Vol/BSA A4C A-L LA Vol/BSA A2C A-L LA Vol/BSA BP A-L 16.7 mL/m2 LA Vol A4C MOD 20.0 mL LA Vol A2C MOD 29.4 mL LA Vol BP MOD 24.5 mL RA Volume RA Area A4C 8.3 cm2 RA ESV A4C (A-L) 16.1mL RA Vol/BSA A4C A-L RA Length A4C 3.6 cm RA ESV A4C (MOD) 15.5mL LV Diastology MV E' medial 0.091 (>0.07 m/s) MV E Vmax 0.83 (0.4-1.3 m/s) MV E/E' MED 9.08 (<14) MV A Vmax 0.95 (0.4-1.3 m/s) MV E' lateral 0.090 (>0.1 m/s) E/A Ratio 0.9 MV E/E' LAT 9.17 (<14) MV E' Average 0.091 m/s MV E/E'(average) 9.12 Aortic Valve AoV Vmax 1.22 m/s LVOT Vmax 0.98 m/s AoV Peak Grad 5.9 mmHg LVOT Peak Grad 3.8 mmHg AoV Area (Vmax) 2.44 cm2 LVOT VTI 0.177 m AoV VTI 0.265 m LVOT Mean Grad 2.3 mmHg AoV Mean Augustus. 0.87 m/s LVOT SV 53.76 mL AoV Mean Grad 3.3 mmHg LVOT Diam s 1.95 cm AoV Area (VTI) 2.03 cm2 Velocity Ratio 0.80 Mitral Valve MV DT 229 (160-240 msec) Pulmonary Valve PV Vmax 1.05 (0.5-1.5 m/s) RVOT Vmax 0.89 m/s PV Peak Grad 4.4 mmHg RVOT Peak Gr. 3.2 mmHg PV Mean Augustus 0.83 m/s RVOT VTI 0.185 m PV Mean Grad 3.0 mmHg RVOT Mean Gr. 1.4 mmHg Tricuspid Valve RA Pressure 3.00 mmHg TR Vmax 3.23 m/s TV S' 0.14 m/s TR Peak Grad 41.7 mmHg RVSP (TR) 44.7 mmHg
--- NOTE | 2023-07-06 14:00 | PT.INIE ---
PT Notes Visit Reasons: COPD Physical Therapy Inpatient Initial Evaluation Date: 07/06/2023 Referring Doctor: Pati Knight NP PT Orders: PT CONSULT: Eval/Treat Precautions: Fall. Standard. Activity as tolerated. Patient Profile/Admitting Diagnosis: Patient is a 77-year-old female patient admitted for management of COPD exacerbation. PMHX: All Active Problems? COPD exacerbation (Acute) Personal history of nicotine dependence (Acute) CAD (coronary artery disease) (Chronic) Dependence on supplemental oxygen (Acute) Postmenopausal (Acute) Pain of right hip joint (Acute) Overweight (Acute) Osteopenia (Acute) Iron deficiency (Acute) Hypertensive disorder (Chronic) Familial combined hyperlipidemia (Acute) Depression (Chronic) COPD (chronic obstructive pulmonary disease) (Chronic) Bronchiectasis (Acute) Angio-edema (Acute) Allergic rhinitis (Acute) Acute exacerbation of chronic obstructive airways disease (Acute) Abnormal findings on diagnostic imaging of breast (Acute) Medical History? Closed fracture of thoracic vertebra Surgical History? H/O breast reconstruction left nipple removal 10/09/1998 H/O cataract extraction 11/09/16 H/O dilation and curettage Of uterus 10/09/83 H/O esophagogastroduodenoscopy History of colonoscopy 08/09/06 History of right oophorectomy right ovarian cyst Social History/Home Situation: Lives with and family in a private home. Daughter and family members are supportive of patient's care needs. Equipment Owned/DME: Looking at procuring a hospital bed. Uses a walker at home. Has had oxygen supplementation at 2L via NC at home. Subjective: Pleasant and cooperative. Short coughing bouts 2-3x during conversation. Granddaughter came in midway through PT evaluation and stated that a hospital bed is being worked on so that it can be avaiabe for patient when she goes home. Agreeable to getting out of bed and trying out in-room ambulation. Objective: General Observation: Supine with HOB at 30 degrees. Oxygen supp at 3L/min via NC. Mental Status: Alert and oriented as to person, place, time, and purpose. Able to pay attention, focus, and respond appropriately. Pain: Denies Vital Signs: Oxygen saturation at 97% on 3 L; 95% on 2 L/min while seated on bedside chair ROM: Right Upper Extremity: Shoulder Flexion WFL. Shoulder abduction WFL. Elbow flexion WFL. Wrist flexion WFL. Functional opening and closing of hand WFL. Left Upper Extremity: Shoulder Flexion WFL. Shoulder abduction WFL. Elbow flexion WFL. Wrist flexion WFL. Functional opening and closing of hand WFL. Right Lower Extremity: Hip flexion WFL. Hip abduction WFL. Knee flexion WFL. Ankle dorsiflexion WFL. Ankle plantarflexion WFL. Left Lower Extremity: Hip flexion WFL. Hip abduction WFL. Knee flexion WFL. Ankle dorsiflexion WFL. Ankle plantarflexion WFL. Strength: Right Upper Extremity: Shoulder flexors 4-/5. Shoulder abductors 4-/5. Elbow flexors 4-/5. Elbow extensors 4-/5. Clinical Support Manager strong. Left Upper Extremity:Shoulder flexors 4-/5. Shoulder abductors 4-/5. Elbow flexors 4-/5. Elbow extensors 4-/5. Clinical Support Manager strong. Right Lower Extremity: Hip flexors 4-/5. Hip abductors 4-/5. Knee flexors 4-/5. Knee extensors 4-/5. Ankle dorsiflexors 4-/5. Ankle plantarflexors 4-/5. Left Lower Extremity: Hip flexors 4-/5. Hip abductors 4-/5. Knee flexors 4-/5. Knee extensors 4-/5. Ankle dorsiflexors 4-/5. Ankle plantarflexors 4-/5. Bed Mobility/Transfers: Supine to sit contact guard assist with minimal verbal cues for movement sequence and hand placement Sit to supine contact guard assist with minimal verbal cues for movement sequence and hand placement Sit to stand contact guard assist with minimal verbal cues for movement sequence and hand placement Stand to sit contact guard assist with minimal verbal cues for movement sequence and hand placement Bed to reclining chair contact guard assist with minimal verbal cues for movement sequence and hand placement Gait: Facilitated correct movement sequence, AD management, and gait pattern during short in-room ambulation using the FWW with oxygen saturation at 3 L/minute requiring contact guard assist. Moderately short of breath after activity but with oxygen saturation staying between 92% through 95%. Balance: Static Sitting: Normal Dynamic Sitting: Normal Static Standing: Fair Dynamic Standing: Fair Special Tests: Mobility Limitations Standardized Measure [facility] AM-PAC 6 clicks Basic Mobility Inpatient Short Form: Raw Score: 18 CMS Score: 47% deficit Informed Consent/Education: Patient was instructed in purpose of PT consult and plan of care. Agreeable to proceed with established PT POC to achieve personal goals. Assessment: Patient presents with clinical signs and symptoms consistent with current/admitting diagnoses that have resulted to mobility limitations, gait instability, generalized weakness, and overall ADL decline as demonstrated by the following impairment level findings: 1. Decreased strength to B UE/LE major muscle groups 2. Impaired sitting/standing balance 3. Impaired activity tolerance 4. Shortness of breath 5. Impaired muscle performance Impairments are contributing to the following functional limitations: 1. Decline in bed mobility skills 2. Decline in transfer skills 3. Difficulty with ambulation without assistive device and physical assistance 4. Increased completion time for mobility ADL performance 5. Increased risk for falls 6. Difficulty with managing steps alone safely Patient is [place] a 76173 moderate complexity based on the following: History: 77-year-old female with past medical history as indicated above Examination: Demonstrable impairment in strength, balance, and mobility level with underlying impairments and functional limitations as exhibited above as well as deficit score of 47% utilizing the [facility] Mobility Inpatient Short Form Presentation: Evolving Decision Makin moderate complexity Goals: Goals X1 week 1. Supine-Sit independent 2. Sit-Supine independent 3. Sit-Stand independent 4. Stand-Sit independent with FWW 5. Bed-Chair independent with FWW 6. Chair-Bed independent with FWW 7. Independent gait on level surface with use of FWW for at least 150 feet without report of pain nor dyspnea 8. Independent stair negotiation while holding onto B rails for at least 4 steps without report of pain nor dyspnea 9. Independent with home exercise program 10. Good static and dynamic standing balance/tolerance Plan of Care/Treatment Plan: 1-2x/day, 7 days/week x 1 week. Plan of care has been reviewed with the ASSISTED LIVING NURSING DIRECTOR providing the service under Physical Therapy direction. Initiate Physical Therapy intervention for pain management as needed, strengthening, bed mobility, transfers, gait, stairs, balance training, and use of assistive device. DISCHARGE RECOMMENDATIONS: [] Home with no services [] [X] Home with services. Patient will benefit from home health PT services in order to progress mobility level using least restrictive assistive ambulatory device, assess home safety, identify additional equipment needs, and establish a functional maintenance program that will increase ability of patient to remain at home. [] Home with outpatient PT [] [] SNF for continued rehabilitation [] [] Data Processing Manager Care [] [] SNF versus LTC based on ability to participate and progress [] TREATMENT CODE/TIME: 07151 x 26 minutes beginning at 14:00 PM. Thank you for the opportunity to participate in the care of this patient. Yojana Disla PT, DPT, CLT [facility] [place], [place]
--- NOTE | 2023-07-06 15:23 | PCNE_ITS ---
Date of service: 07/06/23 Time of Service: 15:23 History of Present Illness Narrative: Marcie was seen in her hospital room. She reports she is feeling a little better today. She is fatigued. She appears SOB with talking. She is always somewhat SOB. When she is home, she cannot stand for more than 5 minutes to do a task, such as cooking dinner. She has been doing her own personal care but it takes a long time. She is on O2 continuously at home. Her granddaughter, Traci stays with her but she is thinking about moving out. Her , Nilesh is 82 and helps but is elderly himself. Her daughter, Estela is close by and helps when she calls. Marcie wants to remain in her home. She recognizes that it is getting harder. She was noncommittal when discussing f/u with palliative care but she would likely benefit from being connected with Palliative care. She thinks she has AD at home but I do not see them on file here. Assessment and Plan Assessment and plan (1) Acute on chronic respiratory failure with hypoxia and hypercapnia: Status: Acute (2) COPD exacerbation: Status: Acute (3) CAD (coronary artery disease): Status: Chronic (4) Palliative care encounter: Status: Acute Assessment and plan: Marcie is a very pleasant 78 year old female with COPD, O2 dependent, CAD, who is currently hospitalized for COPD exacerbation. Palliative care was consulted to discuss goals of care. Marcie does not feel that she needs palliative care at this point. We reviewed what Palliative care offers and how she might be able to benefit from it. She recognizes that it is getting harder at home. Her activity is limited by her dyspnea. Her is in his 80s. Her daughter lives near her and helps as needed. Her granddaughter lives with her but is considering moving out. She thinks she has AD at home but I do not see on file at [facility]. She will call the office if she would like to be seen for an outpatient f/u visit. Review of Systems Narrative: She endorses SOB. She has limited activity tolerance due to dyspnea. She denies pain at present. She is feeling better than when she arrived at the hospital but not back to baseline. PFSH All Active Problems (Updated 07/31/23 @ 09:28 by Genesis Thrasher NP) Palliative care encounter (Acute) Acute on chronic respiratory failure with hypoxia and hypercapnia (Acute) Anemia (Chronic) Bronchiectasis with (acute) exacerbation (Acute) Achromobacter pneumonia (Acute) Demand ischemia (Acute) Acute on chronic respiratory failure with hypoxia (Acute) Acute and chronic respiratory failure (Acute) Pulmonary hypertension (Acute) Respiratory failure with hypercapnia (Acute) Respiratory failure with hypoxia (Acute) COPD exacerbation (Acute) Personal history of nicotine dependence (Acute) CAD (coronary artery disease) (Chronic) Dependence on supplemental oxygen (Acute) Postmenopausal (Acute) Pain of right hip joint (Acute) Overweight (Acute) Osteopenia (Acute) Iron deficiency (Acute) Hypertensive disorder (Chronic) Familial combined hyperlipidemia (Acute) Depression (Chronic) COPD (chronic obstructive pulmonary disease) (Chronic) Bronchiectasis (Acute) Angio-edema (Acute) Allergic rhinitis (Acute) Acute exacerbation of chronic obstructive airways disease (Acute) Abnormal findings on diagnostic imaging of breast (Acute) Medical History Closed fracture of thoracic vertebra Surgical History H/O dilation and curettage Of uterus 10/09/83 History of right oophorectomy right ovarian cyst H/O breast reconstruction left nipple removal 10/09/1998 H/O esophagogastroduodenoscopy History of colonoscopy 08/09/06 H/O cataract extraction 11/09/16 Family History Mother Breast cancer Hx of heart artery stent Father Cancer Hx of coronary artery bypass surgery Sister Diabetes Hx of heart artery stent Brother Hypertension Social History Smoking/Tobacco Use Status: Former Tobacco Use tobacco type: cigarettes Quit Date: 10/09/09 Pack-years: 46 Smoking risk assessment performed?: Yes Housing: house Do you feel safe at home: Yes Do you feel safe in your relationship?: Yes Exam Narrative Exam Narrative: General: very pleasant, elderly female, sitting up in the chair in her hospital room. She was alone at the time of the visit. She appears SOB at rest. She is oriented to person, place and time. HEENT: normocephalic, atraumatic, EOMI, mmm Neck: supple Respiratory: appears SOB at rest and with talking. Extremities: moves all 4 extremities freely. Results Last Vital Signs Temp 36.6 C 07/06/23 15:03 Pulse 100 H 07/06/23 15:03 Resp 20 07/06/23 15:03 BP 149/67 H 07/06/23 15:03 Pulse Ox 90 L 07/06/23 15:03 Labs 07/13/23 06:35 07/13/23 06:35 Labs: Laboratory Results - last 24 hr 07/06/23 07/06/23 11:09 11:09 WBC 11.36 H RBC 3.21 L Hgb 9.7 L Hct 30.9 L MCV 96 H MCH 30.2 MCHC 31.4 L RDW 12.6 Plt Count 318 MPV 9.4 Immature Gran % 0.8 Neutrophils % 91.6 Lymphocytes % 2.6 Monocytes % 4.8 Eosinophils % 0.1 Basophils % 0.1 Nucleated RBC % 0.0 Absolute Neutrophils 10.41 H Absolute Lymphocytes 0.30 L Absolute Monocytes 0.55 Absolute Eosinophils 0.01 Absolute Basophils 0.01 Sodium 137 Potassium 5.0 Chloride 103 Carbon Dioxide 26.4 Anion Gap 7.6 BUN 30 H Creatinine 1.3 H Est GFR (CKD-EPI 2020) 42.35 Glucose 161 H Calcium 9.5 Magnesium 2.0
--- NOTE | 2023-07-06 15:38 | CHAPLAIN ---
I had a brief visit with Yojana. She had three visitors with her. I explained my role and offered support. Yojana thanked me for visiting, but was not interested in further conversation at this point.
--- NOTE | 2023-07-06 17:30 | W.PM.PROGNOT ---
Date of Service Date of service: 07/06/23 Time of Service: 10:00 Assessment and Plan Assessment and plan (1) COPD exacerbation: Status: Acute Assessment and plan: COPD exacerbation. Will continue updrafts and steroids Continue Ceftazidime Continue BiPap Trend labs and vital signs BC pending Budesonide nebs BID per recommendation of pulmonology No line - Midline ordered to continue treatment (2) CAD (coronary artery disease): Status: Chronic Assessment and plan: Continue Simvasatin and metoprolol Echo: Normal left ventricular wall thickness and chamber size.? Ejection fraction is 55%.? Wall motion is normal Normal right ventricular size and systolic function Both atria are normal in size There is no structural or hemodynamically significant valvular disease Estimated right ventricular systolic pressure is 45 mmHg Trivial pericardial effusion (3) Dependence on supplemental oxygen: Status: Acute Assessment and plan: On oxygen at home 2 lpm continuous (4) DVT prophylaxis: Status: Acute Assessment and plan: enoxaparin 40 mg sc q24h (5) Discharge planning issues: Status: Acute Assessment and plan: Home when at baseline and medically stable Subjective Subjective Patient reports: no new complaints, tolerating liquids well, tolerating a regular diet, voiding w/o difficulty, bowel movement and afebrile; denies diarrhea, nausea or vomiting Interval history since last seen: Continues to be short of breath, seen today by pulmonology - continues to be on BiPap. She still has increased WOB and increased RR Exam Const General: cooperative, acute distress mild and respiratory and lethargic Nutritional Appearance: well nourished Orientation: alert, awake and oriented x3 Resp Effort & Inspection: cough Quality of cough: productive, pursed lip breathing and tachypneic Auscultation: diminished lung sounds bilaterally throughout Cardio Rate: regular rate Rhythm: regular rhythm Heart Sounds: S1 normal and S2 normal Extrem Right lower extremity: no edema Left lower extremity: no edema Objective Last Vital Signs Temp 36.6 C 07/06/23 15:03 Pulse 102 H 07/06/23 15:54 Resp 18 07/06/23 15:54 BP 149/67 H 07/06/23 15:03 Pulse Ox 97 07/06/23 15:54 Laboratory Results - last 24 hr 07/06/23 07/06/23 11:09 11:09 WBC 11.36 H RBC 3.21 L Hgb 9.7 L Hct 30.9 L MCV 96 H MCH 30.2 MCHC 31.4 L RDW 12.6 Plt Count 318 MPV 9.4 Immature Gran % 0.8 Neutrophils % 91.6 Lymphocytes % 2.6 Monocytes % 4.8 Eosinophils % 0.1 Basophils % 0.1 Nucleated RBC % 0.0 Absolute Neutrophils 10.41 H Absolute Lymphocytes 0.30 L Absolute Monocytes 0.55 Absolute Eosinophils 0.01 Absolute Basophils 0.01 Sodium 137 Potassium 5.0 Chloride 103 Carbon Dioxide 26.4 Anion Gap 7.6 BUN 30 H Creatinine 1.3 H Est GFR (CKD-EPI 2020) 42.35 Glucose 161 H Calcium 9.5 Magnesium 2.0 Time Spent with Patient Time Spent with Patient: 35-49 minutes Time was spent: preparing to see the patient(eg.review tests), ordering medications,tests, procedures, referring, communicating with other health healthcare consulting manager, indepentently interpreting results, counseling the patient and care coordination
[2023-07-06] MEDS: Melatonin 3 MG TAB 6 MG PO (20:42)
[2023-07-06] MEDS: Simvastatin 20 MG TAB PO (20:42)
[2023-07-06] MEDS: Budesonide 0.5 MG/2 ML UPD VIAL UPD (21:02)
[2023-07-07] VITALS (112 sets, daily range): BP systolic 95–160; BP diastolic 47–117; PULSE 72–126; RESP 1–42; TEMP 36–36.8; O2SAT 88–97
[2023-07-07] MEDS: cefTAZidime 1,000 MG in Normal Saline 100 ML 200 MG IVPB ×3 (00:14→21:24)
[2023-07-07] MEDS: methylPREDNISolone SUCC 40 MG VIAL IVP ×3 (00:17→16:50)
[2023-07-07] MEDS: Albuterol/Ipratropium 3 ML UPD VIAL UPD ×2 (04:29→13:22)
[2023-07-07] MEDS: Normal Saline 1,000 ML 100 ML IV (05:21)
[2023-07-07] MEDS: LORazepam 2 MG/ML VIAL 0.5 MG IVP ×2 (05:33→09:30)
[2023-07-07 06:36] LABS: HCT 29.1 % (36.0-46.0); HGB 9.2 g/dL (11.2-15.7); RBC 2.99 10^6/uL (3.93-5.22); WBC 9.18 10^3/uL (4.4-10.8)
[2023-07-07 06:37] LABS: Abs Immature Grans 0.06 10^3/uL (0.0-0.06); Absolute Basophil Count 0.01 10^3/uL (0.0-0.2); Absolute Eosinophil Count 0.01 10^3/uL (0.0-0.7); Absolute Lymphocyte Count 0.36 10^3/uL (1.2-3.4); Absolute Monocyte Count 0.19 10^3/uL (0.1-0.8); Absolute Neutrophil Count 8.55 10^3/uL (1.2-6.7); Basophils % 0.1; Eosinophils % 0.1; Immature Grans % 0.7; Lymphocytes % 3.9; MCH 30.8 pg (27.0-33.0); MCHC 31.6 % (32.0-36.0); MCV 97 fL (80-95); MPV 9.6 fL (8.0-11.0); Monocytes % 2.1; Neutrophils % 93.1; Platelet Count 322 10^3/uL (130-400); RDW 12.8 % (11.7-14.6)
[2023-07-07 07:00] LABS: BUN 28 mg/dL (7-18); CREATININE 1.2 mg/dL (0.55-1.02); Calcium 9.2 mg/dL (8.5-10.1); Chloride 104 mmol/L (98-107); Estimated GFR 46.62 (mL/min/1.73m2); Glucose 140 mg/dL (74-106); Magnesium 1.8 mg/dL (1.8-2.4); Potassium 4.9 mmol/L (3.5-5.1); Sodium 138 mmol/L (136-145)
[2023-07-07] MEDS: Albuterol 2.5 MG/3 ML INH SOLN VIAL UPD ×3 (08:08→20:03)
[2023-07-07] MEDS: Budesonide 0.5 MG/2 ML UPD VIAL UPD ×2 (08:20→20:11)
[2023-07-07] MEDS: guaiFENesin 600 MG TABCR PO ×2 (08:35→20:40)
[2023-07-07] MEDS: Metoprolol CR 50 MG TABCR PO (08:35)
[2023-07-07] MEDS: Enoxaparin 30 MG/0.3 ML SYR SC (08:36)
[2023-07-07] MEDS: Benzonatate 100 MG CAP PO (08:36)
--- NOTE | 2023-07-07 09:10 | RESPIRATORY ---
RT Assessment Start: 07/05/23 14:05 Freq: .q shift and prn Status: Active Protocol: Document 07/07/23 08:53 RT.MAGR (Rec: 07/07/23 09:10 RT.MAGR [id number]) RT Assessment Pulmonary History Pulmonary History COPD Smoking History Smoking/Tobacco Use Status Former Tobacco Use Quit Date 10/09/09 Tobacco Type cigarettes Packs per Day 1 Years smoked 30 OXYGEN HISTORY: Supplemental O2 At Rest 2 With Exertion 2 CPAP Can use home machine No BIPAP Can you home machine No Trilogy/AVAPS Can use home machine No DME/Compliance DME [place] Current Respiratory Symptoms Current Respiratory Symptoms Cough,Shortness of breath, Sputum production Respiratory Breath Sounds Breath Sounds Any abnormal sounds, decreased breath sounds Response No change Respiratory Rate 18-25 Shortness of Breath Limits speech Respiratory Therapy Score Total 5 Assessment and Plan RT Treatment Protocol Bronchodilator Aerosol Therapy Protocol,Lung Expansion Therapy Protocol,Bronchial Hygiene Therapy Protocol Note Bronchodilator Aerosol Therapy : continue current therapy. RT to assess within 72 hours. Lung Expansion Therapy: Deep breathing/cough, IS and VibraPEP therapy at bedside. Bronchial Hygiene Therapy: Continue VibraPEP Q4. Device at bedside.
--- NOTE | 2023-07-07 09:30 | RT.EKG_ITS ---
APPROVED REPORT Exam: Resting ECG Reason for Exam: chest pain Patient Location: I HR:125 bpm ECG Measurements Heart Rate 125 AXIS [place] [id number] P [id number] QRSd 89 QRS 79 QT 271 T 224 QTc 391 Conclusion Atrial fibrillation...V-rate 115-138, irreg A-activity Borderline low voltage, extremity leads...all extremity leads <0.6mV Repol abnrm suggests ischemia, diffuse leads...ST-T neg, ant/lat/inf ST depression V1-V3, suggest recording posterior leads
[2023-07-07] MEDS: Tiotropium/Olodaterol 10 PUFF INHALER 2 PUFF IH (09:56)
[2023-07-07] MEDS: Normal Saline Flush 10 ML SYR IVP ×3 (10:12→16:51)
[2023-07-07] MEDS: MORPHine 2 MG/ML SYR 1 MG IVP ×2 (10:12→11:52)
[2023-07-07 10:37] LABS: Troponin I 251 ng/L (<or=60)
--- NOTE | 2023-07-07 10:40 | PT.INNT ---
PT Notes Visit Reasons: COPD hold am session per nsg.
[2023-07-07] MEDS: Furosemide 20 MG/2 ML VIAL IVP (11:11)
[2023-07-07] MEDS: Aspirin 81 MG CHEW 324 MG CH (11:11)
[2023-07-07 12:00] LABS: PTT Activated 23.3 sec (21.5-31.9)
[2023-07-07 12:16] LABS: BE (Venous) 1 mmol/L (-2-3); HCO3 (Venous) 27 mmol/L (23-28); O2 Sat (Venous) 72 %; TCO2 (Venous) 26 mmol/L (24-29); pCO2 (Venous) 55 mmHg (41-51); pO2 (Venous) 41 mmHg
[2023-07-07] MEDS: Heparin in 0.45% NaCl 25,000 UNIT/250 ML BAG 7 UNIT IV (12:18)
--- NOTE | 2023-07-07 12:54 | DI.RAD_ITS ---
Exam(s) XR PORTABLE CHEST AP EXAM: XR PORTABLE CHEST AP CLINICAL HISTORY: SOB, ? volume overload TECHNIQUE: 2D digital imaging was performed of the chest. One image was obtained. An AP view was ob tained. COMPARISON: CR,XR XR PORTABLE CHEST AP from 07/04/2023 FINDINGS: MEDIASTINUM: Normal. HEART: Normal. PULMONARY VASCULATURE: Normal. LUNGS: Clear. PLEURAL SPACE: No pleural effusion or pneumothorax. BONE:Within normal limits for the patient's age. OTHER FINDINGS:Normal. IMPRESSION: No acute pulmonary findings. DATA REPOSITORY: RADIATION DOSE DELIVERED:
--- NOTE | 2023-07-07 13:22 | W.PM.PROGNOT ---
Date of Service Date of service: 07/07/23 Time of Service: 13:22 Assessment and Plan Assessment and plan (1) COPD exacerbation: Status: Acute Assessment and plan: -worse this morning, patient did no tolerate BiPAP overnight -transition from IV methylpred to PO Prednisone 40mg AM 07/07 -Continue Ceftazidime -Continue BiPAP; transferred to ICU for closer monitoring and initiation of precedex drip to allow for BIPAP tolerance -BC remain negative -Budesonide nebs BID per recommendation of pulmonology (2) Acute on chronic respiratory failure with hypoxia: Status: Acute Assessment and plan: -normally on 2L NC -currently requiring BiPAP -secondary to COPD exacerbation as noted above (3) Demand ischemia: Status: Acute Assessment and plan: -history of known CAD (as noted below) -patient complained of chest pain this AM -initial trop 251, repeat pending -EKG with ST-depressions in V4 and V5 -given 324mg ASA and started on heparin drip -likely due to demand in the setting of severe COPD exacerbation (4) CAD (coronary artery disease): Status: Chronic Assessment and plan: -Continue Simvasatin and metoprolol -Echo: Normal left ventricular wall thickness and chamber size.? Ejection fraction is 55%.? Wall motion is normal Normal right ventricular size and systolic function Both atria are normal in size There is no structural or hemodynamically significant valvular disease Estimated right ventricular systolic pressure is 45 mmHg Trivial pericardial effusion (5) DVT prophylaxis: Status: Acute Assessment and plan: enoxaparin 40 mg sc q24h (6) Discharge planning issues: Status: Acute Assessment and plan: -Discussion had with patients daughter and ; they understand patients condition is tenative and that she may continue to decline -they are going to discuss how long they would want the patient to continue with current care and when/if she may be appropriate for 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 Exam Narrative Exam Narrative: AOx4, in moderate respiratory distress, tachycardic with HR in 110's, lungs with diffuse crackles and course breath sounds and diminished bilaterally Objective Last Vital Signs Temp 97.0 F L 07/07/23 07:59 Pulse 115 H 07/07/23 11:25 Resp 29 H 07/07/23 11:25 BP 160/84 H 07/07/23 09:45 Pulse Ox 92 07/07/23 11:25 Laboratory Results - last 24 hr 07/07/23 07/07/23 07/07/23 05:40 05:40 10:10 WBC 9.18 RBC 2.99 L Hgb 9.2 L Hct 29.1 L MCV 97 H MCH 30.8 MCHC 31.6 L RDW 12.8 Plt Count 322 MPV 9.6 Immature Gran % 0.7 Neutrophils % 93.1 Lymphocytes % 3.9 Monocytes % 2.1 Eosinophils % 0.1 Basophils % 0.1 Nucleated RBC % 0.0 Absolute Neutrophils 8.55 H Absolute Lymphocytes 0.36 L Absolute Monocytes 0.19 Absolute Eosinophils 0.01 Absolute Basophils 0.01 APTT VBG pH VBG pCO2 VBG pO2 VBG HCO3 VBG Total CO2 VBG O2 Saturation VBG Base Excess Sodium 138 Potassium 4.9 Chloride 104 Carbon Dioxide 28.0 Anion Gap 6.0 BUN 28 H Creatinine 1.2 H Est GFR (CKD-EPI 2020) 46.62 Glucose 140 H Calcium 9.2 Magnesium 1.8 Troponin I 251 H* 07/07/23 07/07/23 11:30 12:10 WBC RBC Hgb Hct MCV MCH MCHC RDW Plt Count MPV Immature Gran % Neutrophils % Lymphocytes % Monocytes % Eosinophils % Basophils % Nucleated RBC % Absolute Neutrophils Absolute Lymphocytes Absolute Monocytes Absolute Eosinophils Absolute Basophils APTT 23.3 VBG pH 7.30 L VBG pCO2 55 H VBG pO2 41 VBG HCO3 27 VBG Total CO2 26 VBG O2 Saturation 72 VBG Base Excess 1 Sodium Potassium Chloride Carbon Dioxide Anion Gap BUN Creatinine Est GFR (CKD-EPI 2020) Glucose Calcium Magnesium Troponin I Time Spent with Patient Time Spent with Patient: >50 minutes (60) Time was spent: preparing to see the patient(eg.review tests), obtaining and/or reviewing separately otained hiistory, ordering medications,tests, procedures, referring, communicating with other health healthcare economics manager, indepentently interpreting results, counseling the patient and care coordination
--- NOTE | 2023-07-07 13:34 | PUCC_ITS ---
General Date of Service Date of service: 07/07/23 Time of Service: 13:34 Reason for Admission to ICU: Hypoxic and hypercapnic respiratory failure Assessment and Plan Assessment and plan (1) Achromobacter pneumonia: Status: Acute (2) Respiratory failure with hypercapnia: Status: Acute (3) Respiratory failure with hypoxia: Status: Acute (4) Demand ischemia: Status: Acute (5) COPD exacerbation: Status: Acute (6) Bronchiectasis with (acute) exacerbation: Status: Acute (7) ANA ROSA (acute kidney injury): Status: Acute (8) Anemia: Status: Chronic Assessment and plan: This is a complex pulmonary patient with COPD and bronchiectasis colonized with multi-drug resistant Achromobacter. She is on ceftazidime, which it is sensitive to but is now in the ICU due to acute on chronic hypoxic and hypercapnic resp iratory failure. Myself and Sumeet Marvin adjusted her BiPAP settings and mask and she is more more synchronous and calm on the BiPAP. I do worry that with her severely diminished baseline lung function, the Achromobacter is worsening and she may not recover from this. I did reconfirm that she would not want mechanical ventilation and was clear that she likely would not be able to be liberated from this if it were to happen. She is clear that she does not want this. Ideally, she would be on hypertonic saline nebs at home for her bronchiectasis, but it was cost prohibative. I will start this therapy while hospitalized. She does having rising troponins with some ischemic EKG changes. I agree with heparin and aspirin. Even if there is some degree of a Type I NSTEMI, there is never a al to cath and with her active infection this would need to wait regardless. She has been ordered for Precedex to slow her breathing, which will ultimately improve her air trapping and hopefully work of breathing. It is medically necessary and beneficial that Yojana receive NIV via Trilogy ROLLY in the home to treat her Chronic Respiratory Failure secondary to COPD with hypoxia and hypercapnia.? Yojana experiences frequent on going periods of shortness of breath, lethargy, frequent hospitalizations (currently in-patient in the ICU) and as a result has an overall poor quality of life and her chronic disease process will inevitability worsen.? The Trilogy ROLLY will allow Yojana to function at her baseline by treating the underlying chronic disease process causing her shortness of breath that is currently limiting her on a daily basis. A traditional BI-PAP has been tried and failed resulting in her transfer to the Intensive Care Unit. MYRON is not a factor in this current chronic DX. The Trilogy ROLLY has multiple setting modes not found in other standard devices this will allow us for 3 different settings, a day time setting, a night time setting and a sick setting for cases of extreme SOB. The Trilogy ROLLY NIV via AVAPS AE mode (AVAPS-AE can only be found in a Respironics Trilogy no other standard devices has the AE option) will be used during the sleeping hours this setting would treat any underlying MYRON but also will have the added benefits of meeting her ventilation needs for her other ?Chronic Respiratory Co-Morbidities? including a varying tidal volumes and minute ventilation based on her ideal weight, it will decrease her work of breathing, decreases carbon dioxide retention, increases oxygenation, allowing for a long respiratory time to reduce the effects of flow limitation, air trapping and breath stacking, this will improve her overall quality of life and reduce further hospitalizations that may occur without proper treatment. The patient can also use the secondary mode that is exclusive to the Trilogy ROLLY NIV device called Mouth Piece Ventilation (MPV) this would be used during the daytime waking hours to help with shortness of breath via a mouth piece device. As a treating provider of this patient, it is medically necessary that she use NIV therapy via the Trilogy ROLLY Non-Invasive Ventilator. The Trilogy Rolly also operates on a battery which will allow for continued usage during power outages which [place] [facility] can be problematic and frequent or medical appointment?s as a lapse in usage or interruption in ventilation may lead to life-threatening consequences, this is extremely important as he will depend on the usage of the equipment on and off threw waking hours in addition to nocturnally for life support. Recommendations Pulmonary: Bronchiectasis exacerbation - will change Duoneb to albuterol only QID and prn - start hypertonic saline nebs tid - Acapella tid - can consider adding Volera if still no improvement in mucus clearance - D/C Tessalon COPD Exacerbation - agree with decreasing methylpred to PO prednisone 40mg - on Pulmicort nebs - on Stiolto - prn morphine Acute on chronic hypoxic and hypercapnic respiratory failure - due to above - BiPAP 18/6, rate 8 - please keep on these settings - recommend she wear this as much as possible today and overnight - tomorrow morning she can be transitioned to either high flow nasal cannula or regular nasal cannula - I will work on getting her an AVAPS device for home use - has prn morphine - agree with Precedex infusion for now - can consider weaning off with improvement Cardiac: Demand Ischemia - trend trops to plateau - on heparin, s/p ASA - recommend EKG with trop bumps to assess for dynamic EKG changes Renal: ANA ROSA - possible ATN from hypoxia - improving, will continue to monitor I&O: Intake & Output 07/04/23 07/05/23 07/06/23 07/07/23 23:59 23:59 23:59 23:59 Intake Total 600 / 600 940 / 940 2340 / 2340 1736.667 / 1736.667 Output Total 500 / 500 1000 / 1000 Balance 600 / 600 440 / 440 1340 / 1340 1736.667 / 1736.667 Weight 57.6 kg Daily Fluid Goal:: even GI Nutrition: OK for diet Date of Last Bowel Movement: 07/05/23 Infectious Disease: Pulmonary Achromobacter colonization with acute infection - on ceftazidime - would recommend a total of 7-14 days of IV ceftaz - has midline - not a good candidate for outpatient infusions Hematologic: Anemia - continue to monitor Neurologic: No acute concerns Endocrine: No acute concerns Lines: Midline Prophylaxis: heparin infusion Code Status: Resuscitation Status DNR/DNI Subjective Critical and life-threatening events over the past 24 hours: This is a 77 yo admitted for acute on chronic hypoxic and hypercapnic respiratory failure. She presented to clinic appearing acutely ill and was directed to the ED. Please see prior documentation for detailed information. Briefly, she has COPD and bronchiectasis with a chronic Achomobacter pulmonary colonization which has been causing multiple acute respiratory failure episodes. We have been attempting to get her a nebulized version of ceftazidime (the only sensitive antibiotic), but to no avail thus far. She was found to be hypoxic and hypercapnic requiring BiPAP. She was being managed on the floor, however had an increased WOB and hypoxic episode in the setting of not wearing much of the BiPAP overnight. She also has evidence of cardiac strain with troponin elevations and strain pattern on EKG. She has had an echo which is normal. I assessed her in the ICU in the presence of her family. She feels okay, is frustrated about being in the hospital. We discussed that she had been getting sicker and sicker for a while and not going to the ER as our office at suggested and now we suspect this infection could be much more severe. I did express that typically for a bronchiectasis exacerbation with this sort of resistant bug, we recommend 14 days of IV therapy, which she was not happy about. Going home with a PICC for outpatient infusions does not seem feasible for her according to her daughter. Exam Narrative Exam Narrative: Gen: NAD, normal respiratory effort, well-nourished HENT: PERRL Chest: Mild to moderate respiratory distress. Bilateral coarse crackles. No wheezing Heart: regular rate and rhythym, no murmurs, rubs or gallops Abdomen: Non-distended, soft, non tender Extremities: No clubbing, edema, cyanosis, rashes Neuro: AAOx3 , non focal Psych: cooperative, appropriate mental affect Most Recent VS/Results Last Vital Signs Temp 36.1 C L 07/07/23 07:59 Pulse 95 H 07/07/23 13:32 Resp 21 07/07/23 13:32 BP 160/84 H 07/07/23 09:45 Pulse Ox 93 07/07/23 13:32 Laboratory Results - last 24 hr 07/07/23 07/07/23 07/07/23 05:40 05:40 10:10 WBC 9.18 RBC 2.99 L Hgb 9.2 L Hct 29.1 L MCV 97 H MCH 30.8 MCHC 31.6 L RDW 12.8 Plt Count 322 MPV 9.6 Immature Gran % 0.7 Neutrophils % 93.1 Lymphocytes % 3.9 Monocytes % 2.1 Eosinophils % 0.1 Basophils % 0.1 Nucleated RBC % 0.0 Absolute Neutrophils 8.55 H Absolute Lymphocytes 0.36 L Absolute Monocytes 0.19 Absolute Eosinophils 0.01 Absolute Basophils 0.01 APTT VBG pH VBG pCO2 VBG pO2 VBG HCO3 VBG Total CO2 VBG O2 Saturation VBG Base Excess Sodium 138 Potassium 4.9 Chloride 104 Carbon Dioxide 28.0 Anion Gap 6.0 BUN 28 H Creatinine 1.2 H Est GFR (CKD-EPI 2020) 46.62 Glucose 140 H Calcium 9.2 Magnesium 1.8 Troponin I 251 H* 07/07/23 07/07/23 11:30 12:10 WBC RBC Hgb Hct MCV MCH MCHC RDW Plt Count MPV Immature Gran % Neutrophils % Lymphocytes % Monocytes % Eosinophils % Basophils % Nucleated RBC % Absolute Neutrophils Absolute Lymphocytes Absolute Monocytes Absolute Eosinophils Absolute Basophils APTT 23.3 VBG pH 7.30 L VBG pCO2 55 H VBG pO2 41 VBG HCO3 27 VBG Total CO2 26 VBG O2 Saturation 72 VBG Base Excess 1 Sodium Potassium Chloride Carbon Dioxide Anion Gap BUN Creatinine Est GFR (CKD-EPI 2020) Glucose Calcium Magnesium Troponin I Review of Systems All systems reviewed & are unremarkable except as noted in HPI and below Time spent with patient Time spent in Critical Care: 60 Time spent in Critical care included: Chart review, Documenting critically ill care, Time at immediate bedside, Discussing critically ill care with other medical staff and Discussing care with family members
--- NOTE | 2023-07-07 13:56 | PDOC.CMPRO ---
Date of service: 07/07/23 Time of Service: 13:56 Care Management Progress Note Progress Note Text Progress Note Text: S/O: Marcie was transferred to the ICU this morning for closer monitoring, and to start a precedex drip to support the use of her BIPAP, as she has been having trouble tolerating it. Her and daughter are visiting, and are very supportive of Marcie, and of her wishes. Per report, she confirmed that she is a DNR/DNI. discussed with Marcie and her family that if her condition does not improve, she may transition to comfort care. Palliative care met with Marcie yesterday, and will continue to follow, if Marcie is agreeable. CM faxed a referral and signed release to [facility], as requested. CM sent the newly completed [place] advanced directives to access, who uploaded them to her chart. CM will continue to follow. A: Yojana is a 77 year old female admitted to [facility] on 07/04/23 for COPD. P: Anticipate Yojana will return home once medically cleared, with new orders for HH RN, PT, OT, [employer], through [facility]. Her will drive her home via private vehicle. She will follow up with her PCP and discharge plan of care. CM will continue to follow
[2023-07-07] MEDS: dexmedeTOMidine IN 0.9 % NACL 400 MCG/100 ML BTL IV (14:07)
[2023-07-07 14:54] LABS: Troponin I 580 ng/L (<or=60)
[2023-07-07 20:02] LABS: PTT Activated 59.9 sec (21.5-31.9)
[2023-07-07] MEDS: Melatonin 3 MG TAB 6 MG PO (20:39)
[2023-07-07] MEDS: Simvastatin 20 MG TAB PO (20:40)
[2023-07-07] MEDS: Acetaminophen 325 MG TAB 650 MG PO (20:40)
[2023-07-08] VITALS (90 sets, daily range): BP systolic 112–163; BP diastolic 50–80; PULSE 56–103; RESP 4–35; TEMP 36.5–37.5; O2SAT 93–100
[2023-07-08] MEDS: Normal Saline 250 ML IV ×2 (04:10→05:48)
[2023-07-08 05:59] LABS: BE (Venous) 4 mmol/L (-2-3); HCO3 (Venous) 29 mmol/L (23-28); O2 Sat (Venous) 63 %; TCO2 (Venous) 28 mmol/L (24-29); pCO2 (Venous) 50 mmHg (41-51); pH (Venous) 7.37 (7.31-7.41); pO2 (Venous) 34 mmHg
[2023-07-08 06:07] LABS: HCT 25.9 % (36.0-46.0); HGB 8.1 g/dL (11.2-15.7); MCHC 31.3 % (32.0-36.0); MCV 96 fL (80-95); MPV 9.4 fL (8.0-11.0); Platelet Count 254 10^3/uL (130-400); RDW 12.9 % (11.7-14.6); RDW-SD 45.2 fL; WBC 6.14 10^3/uL (4.4-10.8)
[2023-07-08 06:19] LABS: PTT Activated 63.9 sec (21.5-31.9)
[2023-07-08 06:33] LABS: Anion Gap 7.2 mmol/L (3-11); BUN 28 mg/dL (7-18); CO2 28.8 mmol/L (21.0-32.0); CREATININE 1.2 mg/dL (0.55-1.02); Calcium 9.1 mg/dL (8.5-10.1); Chloride 103 mmol/L (98-107); Estimated GFR 46.62 (mL/min/1.73m2); Glucose 142 mg/dL (74-106); Potassium 5.6 mmol/L (3.5-5.1); Sodium 139 mmol/L (136-145)
[2023-07-08 06:34] LABS: Troponin I 691 ng/L (<or=60)
[2023-07-08] MEDS: Albuterol 2.5 MG/3 ML INH SOLN VIAL UPD ×5 (07:37→20:39)
[2023-07-08] MEDS: Budesonide 0.5 MG/2 ML UPD VIAL UPD ×2 (07:38→20:42)
--- NOTE | 2023-07-08 08:30 | RT.EKG_ITS ---
APPROVED REPORT Exam: Resting ECG Reason for Exam: elevted troponin Patient Location: I HR:83 bpm ECG Measurements Heart Rate 83 AXIS SC 144 P 75 QRSd 91 QRS 72 QT 373 T 27 QTc 439 Conclusion Sinus rhythm...normal P axis, V-rate 50- 99 Partial missing lead(s): V3
[2023-07-08] MEDS: cefTAZidime 1,000 MG in Normal Saline 100 ML 200 MG IVPB ×2 (09:18→22:00)
[2023-07-08] MEDS: Pantoprazole 40 MG VIAL IVP (09:18)
[2023-07-08] MEDS: Normal Saline Flush 10 ML SYR IVP ×2 (09:18→13:21)
[2023-07-08] MEDS: Metoprolol CR 50 MG TABCR PO (09:19)
[2023-07-08] MEDS: guaiFENesin 600 MG TABCR PO ×2 (09:19→19:45)
[2023-07-08] MEDS: predniSONE 20 MG TAB 40 MG PO (09:19)
[2023-07-08] MEDS: DEXTROSE 5%-0.45% SALINE 1,000 ML 100 ML IV (09:22)
[2023-07-08] MEDS: Tiotropium/Olodaterol 10 PUFF INHALER 2 PUFF IH (12:37)
[2023-07-08 12:51] LABS: BUN 27 mg/dL (7-18); CREATININE 1.2 mg/dL (0.55-1.02); Calcium 9.3 mg/dL (8.5-10.1); Chloride 103 mmol/L (98-107); Estimated GFR 46.62 (mL/min/1.73m2); Glucose 129 mg/dL (74-106); Potassium 4.7 mmol/L (3.5-5.1); Sodium 138 mmol/L (136-145)
[2023-07-08 12:54] LABS: Troponin I 599 ng/L (<or=60)
[2023-07-08 13:33] LABS: HGB 8.8 g/dL (11.2-15.7)
--- NOTE | 2023-07-08 14:40 | W.PM.PROGNOT ---
Date of Service Date of service: 07/08/23 Time of Service: 14:48 Assessment and Plan Assessment and plan (1) Anemia: Status: Chronic Assessment and plan: Her admitting hemoglobin was over 11. This drifted down to 8.1 but recheck today was 8.6. I requested stools for Hemoccult but she has not had a bowel movement yet. I suspect the anemia is probably from a GI blood loss although 1 would expect more frequent stools if this was a large, acute blood loss. I will recheck her blood count tomorrow and she has been started on pantoprazole twice daily. At this time we will continue the heparin infusion. (2) Acute on chronic respiratory failure with hypoxia: Status: Acute Assessment and plan: Her respiratory status appears stable at this time. She is on the BiPAP and nasal cannula oxygen. She is receiving antibiotics and pulmonary treatments requested by Dr. Martinez. Her PCO2 has improved to 50 today from 55 yesterday. Pulmonology can hopefully see her again in 2 days on Monday. (Today is Monday). (3) Demand ischemia: Status: Acute Assessment and plan: Her troponin has gone up and down and this morning was 691 and repeat today was 599. At this point we will continue the heparin and monitor the troponin. Her potassium was elevated today at 5.6 but on repeat was 4.7. I will recheck her BNP and BMP tomorrow. Subjective Subjective Interval history since last seen: This 77-year-old female is here for follow-up for her respiratory failure, anemia, cardiac demand ischemia. She is seen in the intensive care unit. She is on BiPAP for her respiratory problems and has been seeing Dr. Martinez for assistance in managing her respiratory status. She has not had a bowel movement recently. She is not having any pain. She had multiple labs done this morning. Overnight she was given a fluid bolus intravenously by the doctor on-call. I believe that the bolus was 500 cc. She does feel short of breath like she was in the time. I do see that her BNP on admission was approximately 600. Some of her family members are here to discuss her situation. Exam Narrative Exam Narrative: Vital signs are reviewed. Lungs: No wheezes audible. She is breathing unlabored. No rales audible. Heart: Regular rhythm without gallops audible. No friction rubs or murmurs audible. Abdomen: Soft without tenderness mass organomegaly. Extremities: No edema. No calf tenderness. Objective Last Vital Signs Temp 37.5 C 07/08/23 12:29 Pulse 93 H 07/08/23 14:36 Resp 27 H 07/08/23 14:36 BP 149/78 H 07/08/23 13:01 Pulse Ox 95 07/08/23 14:36 Laboratory Results - last 24 hr 07/07/23 07/07/23 07/08/23 14:23 19:36 05:37 WBC RBC Hgb Hct MCV MCH MCHC RDW Plt Count MPV APTT 59.9 H 63.9 H VBG pH VBG pCO2 VBG pO2 VBG HCO3 VBG Total CO2 VBG O2 Saturation VBG Base Excess Sodium Potassium Chloride Carbon Dioxide Anion Gap BUN Creatinine Est GFR (CKD-EPI 2020) Glucose Calcium Troponin I 580 H* 07/08/23 07/08/23 07/08/23 05:37 05:37 05:37 WBC 6.14 RBC 2.70 L Hgb 8.1 L Hct 25.9 L MCV 96 H MCH 30.0 MCHC 31.3 L RDW 12.9 Plt Count 254 MPV 9.4 APTT VBG pH 7.37 VBG pCO2 50 VBG pO2 34 VBG HCO3 29 H VBG Total CO2 28 VBG O2 Saturation 63 VBG Base Excess 4 H Sodium 139 Potassium 5.6 H Chloride 103 Carbon Dioxide 28.8 Anion Gap 7.2 BUN 28 H Creatinine 1.2 H Est GFR (CKD-EPI 2020) 46.62 Glucose 142 H Calcium 9.1 Troponin I 691 H* 07/08/23 07/08/23 12:10 13:22 WBC RBC Hgb 8.8 L Hct MCV MCH MCHC RDW Plt Count MPV APTT VBG pH VBG pCO2 VBG pO2 VBG HCO3 VBG Total CO2 VBG O2 Saturation VBG Base Excess Sodium 138 Potassium 4.7 Chloride 103 Carbon Dioxide 28.0 Anion Gap 7.0 BUN 27 H Creatinine 1.2 H Est GFR (CKD-EPI 2020) 46.62 Glucose 129 H Calcium 9.3 Troponin I 599 H* Time Spent with Patient Time Spent with Patient: 35-49 minutes Time was spent: preparing to see the patient(eg.review tests), obtaining and/or reviewing separately otained hiistory, ordering medications,tests, procedures, referring, communicating with other health managed care coordinator, indepentently interpreting results, counseling the patient and care coordination
[2023-07-08] MEDS: dexmedeTOMidine IN 0.9 % NACL 400 MCG/100 ML BTL IV (18:30)
[2023-07-08 19:19] LABS: Bilirubin Negative (Negative); Blood Large (Negative); Clarity Clear (Clear); Glucose Negative (Negative); Ketones Negative (Negative); Leukocyte Esterase Trace (Negative); Nitrite Negative (Negative); Urobilinogen 0.2 mg/dL (Up to 0.2)
[2023-07-08 19:23] LABS: Bacteria Few HPF (Negative); C & S Indicated? Yes; Casts Negative LPF (Negative); Crystals Negative HPF (Negative); Epithelial Cells Rare HPF (Negative); Mucus Negative (Negative); RBC 20-50 HPF (0-2)
[2023-07-08] MEDS: Simvastatin 20 MG TAB PO (19:45)
[2023-07-08] MEDS: Melatonin 3 MG TAB 6 MG PO (19:46)
[2023-07-08] MEDS: Heparin in 0.45% NaCl 25,000 UNIT/250 ML BAG 7 UNIT IV (22:02)
[2023-07-08] MEDS: MORPHine 2 MG/ML SYR 1 MG IVP (23:46)
[2023-07-08] MEDS: LORazepam 2 MG/ML VIAL 0.5 MG IVP (23:46)
[2023-07-09] VITALS (67 sets, daily range): BP systolic 136–189; BP diastolic 55–91; PULSE 56–105; RESP 7–32; TEMP 36.3–37.1; O2SAT 1–100
[2023-07-09 06:59] LABS: HCT 26.5 % (36.0-46.0); HGB 8.1 g/dL (11.2-15.7); MCH 29.7 pg (27.0-33.0); MCHC 30.6 % (32.0-36.0); MCV 97 fL (80-95); MPV 9.5 fL (8.0-11.0); Platelet Count 242 10^3/uL (130-400); RBC 2.73 10^6/uL (3.93-5.22); RDW 12.9 % (11.7-14.6); RDW-SD 46.1 fL; WBC 8.62 10^3/uL (4.4-10.8)
[2023-07-09 07:12] LABS: Anion Gap 5.3 mmol/L (3-11); BUN 23 mg/dL (7-18); CO2 27.7 mmol/L (21.0-32.0); Chloride 105 mmol/L (98-107); Estimated GFR 58.02 (mL/min/1.73m2); Glucose 114 mg/dL (74-106); Potassium 4.2 mmol/L (3.5-5.1); Sodium 138 mmol/L (136-145)
[2023-07-09 07:24] LABS: NT-proBNP 3699 pg/mL (<300)
[2023-07-09 07:28] LABS: Troponin I 358 ng/L (<or=60)
[2023-07-09] MEDS: Albuterol 2.5 MG/3 ML INH SOLN VIAL UPD ×4 (07:28→20:04)
[2023-07-09] MEDS: Budesonide 0.5 MG/2 ML UPD VIAL UPD ×2 (07:28→20:04)
[2023-07-09 07:29] LABS: PTT Activated 99.8 sec (21.5-31.9)
[2023-07-09] MEDS: Tiotropium/Olodaterol 10 PUFF INHALER 2 PUFF IH (07:30)
[2023-07-09] MEDS: Metoprolol CR 50 MG TABCR PO (08:13)
[2023-07-09] MEDS: guaiFENesin 600 MG TABCR PO (08:13)
[2023-07-09] MEDS: predniSONE 20 MG TAB 40 MG PO (08:13)
--- NOTE | 2023-07-09 09:51 | PGE_ITS ---
Date of Service Date of service: 07/09/23 Time of Service: 09:53 Assessment and Plan Assessment and plan (1) Acute on chronic respiratory failure with hypoxia and hypercapnia: Status: Acute Assessment and plan: In setting of ACute exacerbation of COPD, bronchiectasis, and acrhomobacter pneumonia. Continue ceftazidime (day 614). Continue inhaled and systemic steroids, sched uled nebs, including hypertonic saline, encourage IS/acapella. Increase mucinex. Encourage BiPAP prn. Trialing weaning off of precedex today and using lorazepam instead. Await sputum c&S. Will also give a dose of furosemide today given evidence of fluid overload and elevated pro-BNP. (2) COPD exacerbation: Status: Acute Assessment and plan: As above (3) Bronchiectasis with (acute) exacerbation: Status: Acute Assessment and plan: As above (4) Achromobacter pneumonia: Status: Acute Assessment and plan: As above (5) Demand ischemia: Status: Acute Assessment and plan: In setting respiratory failure, PNA/COPD/bronchiectasis exacerbation. Currently fluid overloaded as well. D/c heparin gtt post 48 hrs (today at noon). Continue asa. Diurese. Treat the respiratory process. (6) Pulmonary hypertension: Status: Acute Assessment and plan: Will give a dose of furosemide. (7) CAD (coronary artery disease): Status: Chronic Assessment and plan: As above (8) ANA ROSA (acute kidney injury): Status: Resolved Assessment and plan: In setting of hypoxia, ?prerenal/cardiorenal component. REsolved. Monitor Cr w/ institution of furosemide. (9) Anemia: Status: Chronic Assessment and plan: H/H stable, 8.1/26.5. Has not required transfusion on this admission. Obtain anemia studies. (10) Hematuria: Status: Acute Assessment and plan: In setting of traumatic insertion, peraza catheter. Would like to d/c peraza catheter MARCO ANTONIO - plan for tomorrow. Trace leucocyte esterase - UTI. Recheck UA once peraza catheter d/c'ed. (11) DVT prophylaxis: Status: Acute Assessment and plan: On therapeutic heparin gtt. Once this is d/c'ed, would need to be transitioned to DVT ppx. (12) Discharge planning issues: Status: Acute Assessment and plan: DNR/DNI PT, palliative care consulted. Keep in the ICU. Total Critical Care Time 45 minutes. Subjective Subjective Interval history since last seen: Ms Burkett feels short of breath off of BiPAP. She agrees to go back to it, but admits that it makes her anxious. Endorse productive cough. Does not know the color of the sputum. Denies CP, n/v. Does not feel ready to have her peraza catheter removed. Off of BiPAP since 5:30 am this morning and transitioned to 2L of O2 (which is her home O2 requirement). Off of precedex this morning. Nursing notes blood in urine on UA. Evidently, it took multiple attempts to place a peraza catheter on admission. On ceftazidime (h/o achromonas) Exam Narrative Exam Narrative: General: Elderly female, dyspneic/moderate respiratory distress, on 2L of O2 by NC, no cyanosis, does look slightly anxious HEENT: EOMI, MMM Heart: RRR Lungs: Diminished inspiratory sounds, does sound wet and faint expiratory wheezing B Abdomen: soft, nontender, nondistended Extremities: no edema BLEs, trace pedal pulses Objective Last Vital Signs Temp 36.3 C L 07/09/23 09:32 Pulse 73 07/09/23 09:26 Resp 17 07/09/23 09:26 BP 136/63 07/09/23 09:26 Pulse Ox 97 07/09/23 09:26 Laboratory Results - last 24 hr 07/08/23 07/08/23 07/08/23 10:55 12:10 13:22 WBC RBC Hgb 8.8 L Hct MCV MCH MCHC RDW Plt Count MPV APTT Sodium 138 Potassium 4.7 Chloride 103 Carbon Dioxide 28.0 Anion Gap 7.0 BUN 27 H Creatinine 1.2 H Est GFR (CKD-EPI 2020) 46.62 Glucose 129 H Calcium 9.3 Troponin I 599 H* NT-Pro-B Natriuret Pep Urine Color Yellow Urine Clarity Clear Urine pH 6.0 Ur Specific [place] 1.010 Urine Protein 30 H Urine Ketones Negative Urine Blood Large H Urine Nitrite Negative Urine Bilirubin Negative Urine Urobilinogen 0.2 Ur Leukocyte Esterase Trace H Urine RBC 20-50 H Urine WBC 5-10 Ur Epithelial Cells Rare Urine Crystals Negative Urine Bacteria Few Urine Casts Negative Urine Mucus Negative Ur Culture Indicated? Yes Urine Glucose Negative 07/09/23 07/09/23 07/09/23 06:19 06:19 06:19 WBC RBC Hgb Hct MCV MCH MCHC RDW Plt Count MPV APTT 99.8 H* Sodium 138 Potassium 4.2 Chloride 105 Carbon Dioxide 27.7 Anion Gap 5.3 BUN 23 H Creatinine 1.0 Est GFR (CKD-EPI 2020) 58.02 Glucose 114 H Calcium 9.0 Troponin I 358 H* NT-Pro-B Natriuret Pep 3699 H Urine Color Urine Clarity Urine pH Ur Specific [place] Urine Protein Urine Ketones Urine Blood Urine Nitrite Urine Bilirubin Urine Urobilinogen Ur Leukocyte Esterase Urine RBC Urine WBC Ur Epithelial Cells Urine Crystals Urine Bacteria Urine Casts Urine Mucus Ur Culture Indicated? Urine Glucose 07/09/23 06:19 WBC 8.62 RBC 2.73 L Hgb 8.1 L Hct 26.5 L MCV 97 H MCH 29.7 MCHC 30.6 L RDW 12.9 Plt Count 242 MPV 9.5 APTT Sodium Potassium Chloride Carbon Dioxide Anion Gap BUN Creatinine Est GFR (CKD-EPI 2020) Glucose Calcium Troponin I NT-Pro-B Natriuret Pep Urine Color Urine Clarity Urine pH Ur Specific [place] Urine Protein Urine Ketones Urine Blood Urine Nitrite Urine Bilirubin Urine Urobilinogen Ur Leukocyte Esterase Urine RBC Urine WBC Ur Epithelial Cells Urine Crystals Urine Bacteria Urine Casts Urine Mucus Ur Culture Indicated? Urine Glucose Multi-Disciplinary Checklist Lines/Tubes CENTRAL LINE: no ARTERIAL LINE: no PERAZA: yes, Peraza Day#: 3 ENDOTRACHEAL TUBE: no ICU Maintenance GLUCOSE 140-180mg/dL: yes NUTRITION AT GOAL: yes PRESSURE ULCER: no RESTRAINTS: no ANTIBIOTICS(if yes, consider Stewardship): Yes Social Issues FAMILY UPDATED: no, Reason/Intervention: Patient is able to update family. PT/OT: yes GOALS/DISPOSITION/INSURANCE UNDERWRITER: yes CODE STATUS: DNR/DNI Prophylaxis DVT PROPHYLAXIS: yes GI PROPHYLAXIS: yes, Indication: on steroids Time Spent with Patient Time Spent with Patient: 35-49 minutes Time was spent: preparing to see the patient(eg.review tests), obtaining and/or reviewing separately otained hiistory, ordering medications,tests, procedures, referring, communicating with other health critical care transport nurse, indepentently interpreting results, counseling the patient and care coordination
[2023-07-09] MEDS: Pantoprazole 40 MG VIAL IVP (10:11)
[2023-07-09] MEDS: LORazepam 2 MG/ML VIAL 0.5 MG IVP (10:11)
[2023-07-09] MEDS: cefTAZidime 1,000 MG in Normal Saline 100 ML 200 MG IVPB ×2 (10:12→21:48)
[2023-07-09 10:23] LABS: Lab Add On Test DONE
[2023-07-09 10:51] LABS: ALT 56 U/L (14-59); AST 44 U/L (15-37); Albumin 2.7 g/dL (3.4-5.0); Alkaline Phosphatase 40 U/L (46-116); Bilirubin, Direct 0.1 mg/dL (0.0-0.2); Bilirubin, Total 0.2 mg/dL (0.2-1.0); Total Protein 5.7 g/dL (6.4-8.2)
[2023-07-09] MEDS: Furosemide 40 MG/4 ML VIAL IVP (11:03)
[2023-07-09] MEDS: Aspirin E.C. 81 MG TABEC PO (13:26)
[2023-07-09] MEDS: Simvastatin 20 MG TAB PO (20:05)
[2023-07-09] MEDS: guaiFENesin 600 MG TABCR 1200 MG PO (20:06)
[2023-07-09] MEDS: Normal Saline Flush 10 ML SYR IVP (21:49)
[2023-07-10] VITALS (25 sets, daily range): BP systolic 97–191; BP diastolic 61–147; PULSE 69–129; RESP 1–39; TEMP 36.6–37.6; O2SAT 94–100
--- NOTE | 2023-07-10 06:58 | PUCC_ITS ---
General Date of Service Date of service: 07/10/23 Time of Service: 06:58 Reason for Admission to ICU: Hypoxic and hypercapnic respiratory failure Assessment and Plan Assessment and plan (1) Achromobacter pneumonia: Status: Acute (2) Respiratory failure with hypercapnia: Status: Acute (3) Respiratory failure with hypoxia: Status: Acute (4) Demand ischemia: Status: Acute (5) COPD exacerbation: Status: Acute (6) Bronchiectasis with (acute) exacerbation: Status: Acute (7) ANA ROSA (acute kidney injury): Status: Resolved (8) Anemia: Status: Chronic Assessment and plan: This is a complex pulmonary patient with COPD and bronchiectasis colonized with multi-drug resistant Achromobacter. She is on ceftazidime, which it is sensitive to but is now in the ICU due to acute on chronic hypoxic and hypercapnic r espiratory failure. She really does not have any significant pulmonary hypertension, taking into account her age. She is much improved today and her renal failure has resolved. She should be admitted for at least 7 days of IV antibiotics. I am working on getting her a Triology device for home, which I do think will help her immensely. Recommendations Pulmonary: Bronchiectasis exacerbation - albuterol QID and prn - hypertonic saline nebs tid - Acapella tid COPD Exacerbation - PO prednisone 40mg for 5 days, 30mg for 3 days, 20mg for 3 days, 10mg for 3 days, 5mg for 3 days - on Pulmicort nebs - on Stiolto - prn morphine and ativan Acute on chronic hypoxic and hypercapnic respiratory failure - due to above - BiPAP 18/6, rate 8 - please keep on these settings - will adjust to trial AVAPS tomorrow - night use and prn - I will work on getting her an AVAPS device for home use - has prn morphine - liberated from Precedex Cardiac: Demand Ischemia - trend trops to plateau - no need for any further unless a clinical change - s/p heparin Renal: ANA ROSA, resolved - possible ATN from hypoxia I&O: Intake & Output 07/07/23 07/08/23 07/09/23 07/10/23 23:59 23:59 23:59 23:59 Intake Total 2147.604 / 2147.604 2399.268 / 2399.268 599.317 / 599.317 Output Total 700 / 700 1260 / 1260 1979 / 1979 Balance 1447.604 / 2865.238 3703.268 / 1139.268 -1380.683 / -1380.683 Weight 58 kg Daily Fluid Goal:: even to negative GI Nutrition: OK for diet Date of Last Bowel Movement: 07/07/23 Infectious Disease: Pulmonary Achromobacter colonization with acute infection - on ceftazidime - would recommend a total of 7-14 days of IV ceftaz - has midline - not a good candidate for outpatient infusions Hematologic: Anemia - continue to monitor Neurologic: No acute concerns Endocrine: No acute concerns Lines: Midline Prophylaxis: none currently - recommend starting DVT ppx since now she is off heparin gtt Code Status: Resuscitation Status DNR/DNI Subjective Critical and life-threatening events over the past 24 hours: She is feeling great today. She said that yesterday she had a very good day. She is still upset about having to stay in the hospital for IV antibiotics, but I again explained the reasoning. She states she is coughing up alot of mucus. Exam Narrative Exam Narrative: Gen: NAD, normal respiratory effort, well-nourished HENT: PERRL Chest: Mild to moderate respiratory distress. Clear anteriorly Heart: regular rate and rhythym, no murmurs, rubs or gallops Abdomen: Non-distended, soft, non tender Extremities: No clubbing, edema, cyanosis, rashes Neuro: AAOx3 , non focal Psych: cooperative, appropriate mental affect Most Recent VS/Results Last Vital Signs Temp 36.6 C 07/10/23 03:48 Pulse 79 07/10/23 03:48 Resp 21 07/10/23 03:48 BP 137/74 07/09/23 22:01 Pulse Ox 95 07/10/23 03:48 Laboratory Results - last 24 hr 07/09/23 07/09/23 07/09/23 06:19 06:19 06:19 WBC RBC Hgb Hct MCV MCH MCHC RDW Plt Count MPV APTT 99.8 H* Sodium 138 Potassium 4.2 Chloride 105 Carbon Dioxide 27.7 Anion Gap 5.3 BUN 23 H Creatinine 1.0 Est GFR (CKD-EPI 2020) 58.02 Glucose 114 H Calcium 9.0 Total Bilirubin Conjugated Bilirubin AST ALT Alkaline Phosphatase Troponin I 358 H* NT-Pro-B Natriuret Pep 3699 H Total Protein Albumin Add-On Test Request 07/09/23 07/09/23 07/09/23 06:19 06:19 06:19 WBC 8.62 RBC 2.73 L Hgb 8.1 L Hct 26.5 L MCV 97 H MCH 29.7 MCHC 30.6 L RDW 12.9 Plt Count 242 MPV 9.5 APTT Sodium Potassium Chloride Carbon Dioxide Anion Gap BUN Creatinine Est GFR (CKD-EPI 2020) Glucose Calcium Total Bilirubin 0.2 Conjugated Bilirubin 0.1 AST 44 H ALT 56 Alkaline Phosphatase 40 L Troponin I NT-Pro-B Natriuret Pep Total Protein 5.7 L Albumin 2.7 L Add-On Test Request DONE 07/09/23 13:30 WBC RBC Hgb Hct MCV MCH MCHC RDW Plt Count MPV APTT Cancelled Sodium Potassium Chloride Carbon Dioxide Anion Gap BUN Creatinine Est GFR (CKD-EPI 2020) Glucose Calcium Total Bilirubin Conjugated Bilirubin AST ALT Alkaline Phosphatase Troponin I NT-Pro-B Natriuret Pep Total Protein Albumin Add-On Test Request Review of Systems All systems reviewed & are unremarkable except as noted in HPI and below Time spent with patient Time spent in Critical Care: 40 Time spent in Critical care included: Coordination of care, Chart review, Documenting critically ill care, Time at immediate bedside and Discussing critically ill care with other medical staff
[2023-07-10 07:07] LABS: Abs Immature Grans 0.12 10^3/uL (0.0-0.06); Absolute Basophil Count 0.03 10^3/uL (0.0-0.2); Absolute Eosinophil Count 0.07 10^3/uL (0.0-0.7); Absolute Lymphocyte Count 3.25 10^3/uL (1.2-3.4); Absolute Monocyte Count 0.95 10^3/uL (0.1-0.8); Absolute Neutrophil Count 6.53 10^3/uL (1.2-6.7); Basophils % 0.3; Eosinophils % 0.6; HGB 9.8 g/dL (11.2-15.7); Immature Grans % 1.1; Lymphocytes % 29.7; MCH 30.1 pg (27.0-33.0); MCHC 31.6 % (32.0-36.0); MCV 95 fL (80-95); MPV 9.6 fL (8.0-11.0); Monocytes % 8.7; Neutrophils % 59.6; Nucleated RBC 0.2 % (0.0-0.3); Platelet Count 313 10^3/uL (130-400); RBC 3.26 10^6/uL (3.93-5.22); RDW 12.9 % (11.7-14.6); RDW-SD 44.5 fL; WBC 10.95 10^3/uL (4.4-10.8)
[2023-07-10] MEDS: guaiFENesin 600 MG TABCR 1200 MG PO ×2 (07:39→20:50)
[2023-07-10] MEDS: Acetaminophen 325 MG TAB 650 MG PO (07:39)
[2023-07-10] MEDS: predniSONE 20 MG TAB 40 MG PO (07:40)
[2023-07-10] MEDS: Metoprolol CR 50 MG TABCR PO (07:40)
[2023-07-10] MEDS: Aspirin E.C. 81 MG TABEC PO (07:40)
--- NOTE | 2023-07-10 08:00 | DI.US_ITS ---
Exam(s) US RENAL EXAM: US RENAL CLINICAL HISTORY: hematuria TECHNIQUE: Ultrasound of both kidneys performed using standard protocol. COMPARISON: US US ECHOCARDIOGRAM from 07/06/2023 FINDINGS: RIGHT KIDNEY: Measures 9 cm in length. No cysts evident. Normal cortical thickness and corticomedullary differentia tion .No solid masses No intrarenal calculi nor hydronephrosis. LEFT KIDNEY: Measures 9 cm in length. No cysts evident. Normal cortical thickness and corticomedullary differenti aion. No solids masses. No intrarenal calculi nor hydonephrosis. URINARY BLADDER: Prevoid volume is 79 cc Postvoid volume is patient unable to void cc No evidence of obvious bladder mass Ureterovesical jets: Both identified and appear symmetrical IMPRESSION: 1. No evidence of hydronephrosis nor nephrocalcinosis. 2. No obvious renal masses. DATA REPOSITORY:
[2023-07-10 08:03] LABS: Anion Gap 7.3 mmol/L (3-11); BUN 22 mg/dL (7-18); CO2 29.7 mmol/L (21.0-32.0); CREATININE 0.9 mg/dL (0.55-1.02); Chloride 103 mmol/L (98-107); Estimated GFR 65.84 (mL/min/1.73m2); Glucose 78 mg/dL (74-106); Magnesium 1.7 mg/dL (1.8-2.4); Sodium 140 mmol/L (136-145); TSH 5.06 uIU/mL (0.36-3.74)
[2023-07-10] MEDS: Tiotropium/Olodaterol 10 PUFF INHALER 2 PUFF IH (08:41)
[2023-07-10] MEDS: Budesonide 0.5 MG/2 ML UPD VIAL UPD ×2 (08:41→20:19)
[2023-07-10] MEDS: Albuterol 2.5 MG/3 ML INH SOLN VIAL UPD ×4 (08:41→20:19)
--- NOTE | 2023-07-10 09:00 | CMPROGNOTE_ITS ---
Date of service: 07/10/23 Time of Service: 09:00 Care Management Progress Note Progress Note Text Progress Note Text: S/O: Marcie was lying in bed when CM met with her. She stated that she is feeling slightly better than monday, when she was transferred into the ICU, but her progress has been slow. She had a breathing treatment with RT right before CM met with her, and just talking with CM she became short of breath. She stated that her daughter, Estela, is helping her to get support at home, but she doesn't feel ready to make any decisions right now. CM will continue to follow. A: Yojana is a 77 year old female admitted to [facility] on 07/04/23 for COPD. P: Anticipate Yojana will return home once medically cleared, with new orders for HH RN, PT, OT, RESERVATIONS AND TICKETING AGENT, through [facility]. Her will drive her home via private vehicle. She will follow up with her PCP and discharge plan of care. CM will continue to follow
--- NOTE | 2023-07-10 09:34 | W.PM.PROGNOT ---
Date of Service Date of service: 07/10/23 Time of Service: 09:34 Assessment and Plan Assessment and plan (1) Acute on chronic respiratory failure with hypoxia and hypercapnia: Status: Acute Assessment and plan: In setting of Acute exacerbation of COPD, bronchiectasis, and achromobacter pneumonia. Continue ceftazidime (day /-14). Continue inhaled and systemic steroids, scheduled nebs, including hypertonic saline, encourage IS/acapella. On mucinex. Encourage BiPAP prn and at night. Dr Masters is working on arranging a Trilogy for home use. Repeat sputum C&S (one done prior shows normal lesvia). (2) COPD exacerbation: Status: Acute Assessment and plan: As above (3) Bronchiectasis with (acute) exacerbation: Status: Acute Assessment and plan: As above (4) Achromobacter pneumonia: Status: Acute Assessment and plan: As above (5) Demand ischemia: Status: Acute Assessment and plan: In setting respiratory failure, PNA/COPD/bronchiectasis exacerbation. Currently fluid overloaded as well. Continue asa. Euvolemic today. Treat the respiratory process. Echo 07/06: no wall motion abnormalities, LVEF 55%, RVSP 45 mmHg. (6) Pulmonary hypertension: Status: Acute Assessment and plan: Appears euvolemic today - holding on diuresis. (7) CAD (coronary artery disease): Status: Chronic Assessment and plan: As above (8) ANA ROSA (acute kidney injury): Status: Resolved Assessment and plan: In setting of hypoxia, ?prerenal/cardiorenal component. Resolved. Continue to monitor. (9) Anemia: Status: Chronic Assessment and plan: H/H stable, 8.1/26.5. Has not required transfusion on this admission. Await anemia studies. (10) Hematuria: Status: Acute Assessment and plan: In setting of traumatic insertion, boston catheter. Boston d/c'ed 07/09/23. Trace leucocyte esterase - urine C&S w/ NGTD, so not a UTI. (11) DVT prophylaxis: Status: Acute Assessment and plan: SC lovenox (12) Discharge planning issues: Status: Acute Assessment and plan: DNR/DNI PT, palliative care consulted. Can likely transfer out of the ICU later today. Discussed with Dr Masters. Subjective Subjective Interval history since last seen: Ms Burkett feels better. She continues to have a cough productive of yellow sputum. Denies dizziness, SP, SOB. DIdn't sleep well on BiPAP. Has been off of precedex since yesterday am. On 2 L of O2 right now. Did desaturate to 83-84% on 2L when moving. Baseline O2 is 2-2.5L. Exam Narrative Exam Narrative: General: Elderly female, looks significantly less dyspneic, A&Ox3, coughing HEENT: EOMI, MMM Heart: RRR Lungs: Expiratory wheezing B Abdomen: soft, nontender, nondistended Extremities: no edema BLEs, trace pedal pulses Objective Last Vital Signs Temp 37.6 C H 07/10/23 07:45 Pulse 104 H 07/10/23 08:41 Resp 18 07/10/23 08:41 BP 191/85 H 07/10/23 08:01 Pulse Ox 96 07/10/23 08:41 Laboratory Results - last 24 hr 07/09/23 07/09/23 07/09/23 06:19 06:19 13:30 WBC RBC Hgb Hct MCV MCH MCHC RDW Plt Count MPV Immature Gran % Neutrophils % Lymphocytes % Monocytes % Eosinophils % Basophils % Nucleated RBC % Absolute Neutrophils Absolute Lymphocytes Absolute Monocytes Absolute Eosinophils Absolute Basophils APTT Cancelled Sodium Potassium Chloride Carbon Dioxide Anion Gap BUN Creatinine Est GFR (CKD-EPI 2020) Glucose Calcium Magnesium Total Bilirubin 0.2 Conjugated Bilirubin 0.1 AST 44 H ALT 56 Alkaline Phosphatase 40 L Total Protein 5.7 L Albumin 2.7 L TSH Add-On Test Request DONE 07/10/23 07/10/23 05:55 05:55 WBC 10.95 H RBC 3.26 L Hgb 9.8 L Hct 31.0 L MCV 95 MCH 30.1 MCHC 31.6 L RDW 12.9 Plt Count 313 MPV 9.6 Immature Gran % 1.1 Neutrophils % 59.6 Lymphocytes % 29.7 Monocytes % 8.7 Eosinophils % 0.6 Basophils % 0.3 Nucleated RBC % 0.2 Absolute Neutrophils 6.53 Absolute Lymphocytes 3.25 Absolute Monocytes 0.95 H Absolute Eosinophils 0.07 Absolute Basophils 0.03 APTT Sodium 140 Potassium 4.0 Chloride 103 Carbon Dioxide 29.7 Anion Gap 7.3 BUN 22 H Creatinine 0.9 Est GFR (CKD-EPI 2020) 65.84 Glucose 78 Calcium 10.0 Magnesium 1.7 L Total Bilirubin Conjugated Bilirubin AST ALT Alkaline Phosphatase Total Protein Albumin TSH 5.06 H Add-On Test Request Multi-Disciplinary Checklist Lines/Tubes CENTRAL LINE: no ARTERIAL LINE: no BOSTON: no ENDOTRACHEAL TUBE: no ICU Maintenance GLUCOSE 140-180mg/dL: no, Reason/Intervention: Not diabetic NUTRITION AT GOAL: yes PRESSURE ULCER: no RESTRAINTS: no ANTIBIOTICS(if yes, consider Stewardship): Yes Social Issues FAMILY UPDATED: yes PT/OT: yes GOALS/DISPOSITION/CLIPPER MACHINE OPERATOR: yes CODE STATUS: DNR/DNI Prophylaxis DVT PROPHYLAXIS: yes GI PROPHYLAXIS: yes, Indication: On steroids Time Spent with Patient Time Spent with Patient: 35-49 minutes Time was spent: preparing to see the patient(eg.review tests), obtaining and/or reviewing separately otained hiistory, ordering medications,tests, procedures, referring, communicating with other health hospice care transitions coordinator, indepentently interpreting results, counseling the patient and care coordination
[2023-07-10] MEDS: Enoxaparin 40 MG/0.4 ML SYR SC (09:44)
[2023-07-10] MEDS: MAGNESIUM SULFATE 2 GM/50 ML BAG IVPB (09:44)
[2023-07-10] MEDS: Pantoprazole 40 MG VIAL IVP (09:45)
[2023-07-10] MEDS: Normal Saline Flush 10 ML SYR IVP ×2 (09:45→21:32)
[2023-07-10] MEDS: cefTAZidime 1,000 MG in Normal Saline 100 ML 200 MG IVPB ×2 (10:23→21:30)
--- NOTE | 2023-07-10 15:08 | PT.INIE ---
Date of service: 07/10/23 Time of Service: 14:30 PT Notes Visit Reasons: COPD Inpatient Physical Therapy Evaluation Date: 07/10/23 Referring Doctor: Ninoska Kaye MD PT Orders: PT CONSULT: limited ability Precautions: Standard Patient Profile/Admitting Diagnosis: 77yo female with COPD exacerbation in setting of pneumonia. Generally on 2L o2 via NC at base line, currently using 3L PMHX: All Active Problems? COPD exacerbation (Acute) Personal history of nicotine dependence (Acute) CAD (coronary artery disease) (Chronic) Dependence on supplemental oxygen (Acute) Postmenopausal (Acute) Pain of right hip joint (Acute) Overweight (Acute) Osteopenia (Acute) Iron deficiency (Acute) Hypertensive disorder (Chronic) Familial combined hyperlipidemia (Acute) Depression (Chronic) COPD (chronic obstructive pulmonary disease) (Chronic) Bronchiectasis (Acute) Angio-edema (Acute) Allergic rhinitis (Acute) Acute exacerbation of chronic obstructive airways disease (Acute) Abnormal findings on diagnostic imaging of breast (Acute) Medical History? Closed fracture of thoracic vertebra Surgical History? H/O breast reconstruction left nipple removal 10/09/1998H/O cataract extraction 11/09/16H/O dilation and curettage Of uterus 10/09/83H/O esophagogastroduodenoscopy History of colonoscopy 08/09/06History of right oophorectomy right ovarian cyst Social History/Home Situation: Lives in a private home with her 3 steps to enter with rail. Two-story, but resides on one level. Owns WC, RW, and commode - although does not use them at baseline. She is using 2L o2 at baseline chronically for management of COPD Current Functional Limitations: Unable to ambulate, requires A x2 or RW to stand at EOB, independent but struggles with bed mobility, O2 dependent Equipment Owned/DME: RW, WC, commode Subjective: Very fatigued. Admits she came to the hospital too late, she was having difficulty breathing, with progression for 2 weeks. She is very tired, has not been getting any sleep. No pain Objective: General Observation: Lying reclined in bed, BP cuff, telemetry and IV line in place Mental Status: A & O x 3 Pain: 0/10 Vital Signs: BP 97/83, HR 100, O2 ranges from 81-99% on 3L NC, decreasing with only slight activity. ROM: Right Upper Extremity: WNL Left Upper Extremity: WNL Right Lower Extremity: WNL Left Lower Extremity: WNL Strength: Right Upper Extremity: Grossly 3+/4 throughout Left Upper Extremity: Grossly 3+/5 throughout Right Lower Extremity: Grossly 3+/5 throughout Left Lower Extremity: Grossly 3+/5 throughout Bed Mobility/Transfers: SBA with bed mobility, CG 2 STS, Min A x 2 for standing (RW not available), CG x 1 for dynamic standing activity Gait: Unable due to Low O2 and SOB Balance: Static Sitting: Good Dynamic Sitting: Good Static Standing: Poor, light headed Dynamic Standing: Poor, light headed Special Tests: Mobility Limitations Standardized Measure [facility] AM-PAC 6 clicks Basic Mobility Inpatient Short Form:72% disability Informed Consent/Education: Patient instructed in purpose of PT consult and plan of care. Assessment: Patient is a 77 year old female referred to physical therapy services with the diagnosis of COPD exacerbation in setting of pneumonia, allowing for limited ability. Currently presents below baseline with dependence of Agusto x 2 to stand and STS while on 3 L02, from baseline of independent transfers and ambulation without AD and 2L 02. Unable to tolerate ambulation today due to O2 levels being so low. Patient presents with limited physical ability and safety, dependence on others for safe transfers, inability to perform basic transfers at baseline, and unable to ambulate at all, with impairments of SOB, poor oxygen saturation, global weakness and deconditioning. Requires skilled PT intervention to return to [facility], and for safe return home. Patient is assessed as a Moderate 94012 complexity based on the following: History: See comorbidities Examination: Per assessment: weakness, SOB, low O2 saturation, inability to ambulate, transfers without assist, and tolerate functional standing Presentation: Evolving Decision Making: Moderate Goals: Goals X1 week - all at baseline of 2L 02 1. Supine-Sit independent 2. Sit-Supine independent 3. Sit-Stand independent at RW 4. Stand-Sit independent from RW 5. Bed-Chair supervision with RW 6. Chair-Bed supervision with RW 7. Gait supervision, RW, 30 ft 8. Stairs 3, with 1 rail, CG 9. Independent with home exercise program Plan of Care/Treatment Plan: 1-2x/day, 7 days/week x 1 week. Plan of care has been reviewed with the EAR FLAP BINDER providing the service under Physical Therapy direction. Initiate Physical Therapy intervention for strengthening, bed mobility, transfers, gait, stairs, balance training, use of assistive device. DISCHARGE RECOMMENDATIONS: Home with services HHPT TREATMENT CODE/TIME: 01145, 30 minutes
[2023-07-10] MEDS: Simvastatin 20 MG TAB PO (20:50)
[2023-07-10] MEDS: LORazepam 2 MG/ML VIAL 0.5 MG IVP (21:31)
[2023-07-11] VITALS (18 sets, daily range): BP systolic 145–182; BP diastolic 62–80; PULSE 72–122; RESP 1–37; TEMP 37–37.6; O2SAT 93–100
[2023-07-11 06:42] LABS: Absolute Basophil Count 0.03 10^3/uL (0.0-0.2); Absolute Eosinophil Count 0.11 10^3/uL (0.0-0.7); Absolute Lymphocyte Count 2.64 10^3/uL (1.2-3.4); Absolute Neutrophil Count 5.33 10^3/uL (1.2-6.7); Basophils % 0.3; Eosinophils % 1.2; HCT 31.1 % (36.0-46.0); HGB 9.9 g/dL (11.2-15.7); Immature Grans % 1.1; Lymphocytes % 29.3; MCH 30.3 pg (27.0-33.0); MCHC 31.8 % (32.0-36.0); MCV 95 fL (80-95); MPV 9.6 fL (8.0-11.0); Monocytes % 8.9; Neutrophils % 59.2; Platelet Count 323 10^3/uL (130-400); RBC 3.27 10^6/uL (3.93-5.22); RDW 13.1 % (11.7-14.6); RDW-SD 44.6 fL; WBC 9.01 10^3/uL (4.4-10.8)
--- NOTE | 2023-07-11 06:58 | PUCC_ITS ---
General Date of Service Date of service: 07/11/23 Time of Service: 06:59 Reason for Admission to ICU: Hypoxic and hypercapnic respiratory failure Assessment and Plan Assessment and plan (1) Achromobacter pneumonia: Status: Acute (2) Respiratory failure with hypercapnia: Status: Acute (3) Respiratory failure with hypoxia: Status: Acute (4) Demand ischemia: Status: Acute (5) COPD exacerbation: Status: Acute (6) Bronchiectasis with (acute) exacerbation: Status: Acute (7) ANA ROSA (acute kidney injury): Status: Resolved (8) Anemia: Status: Chronic Assessment and plan: This is a complex pulmonary patient with COPD and bronchiectasis colonized with multi-drug resistant Achromobacter. She is on ceftazidime, which it is sensitive to but is now in the ICU due to acute on chronic hypoxic and hypercapnic r espiratory failure. She really does not have any significant pulmonary hypertension, taking into account her age. She is much improved today and her renal failure has resolved. She should be admitted for at least 7 days of IV antibiotics. I am working on getting her a Triology device for home, which I do think will help her immensely. Recommendations Pulmonary: Bronchiectasis exacerbation - albuterol QID and prn - hypertonic saline nebs tid - Acapella tid COPD Exacerbation - PO prednisone 40mg for 5 days, 30mg for 3 days, 20mg for 3 days, 10mg for 3 days, 5mg for 3 days - on Pulmicort nebs - on Stiolto - prn morphine and ativan Acute on chronic hypoxic and hypercapnic respiratory failure - due to above - BiPAP switched to AVAPS for continued use - night use and prn - I will work on getting her an AVAPS device for home use - has prn morphine Cardiac: Demand Ischemia - trend trops to plateau - no need for any further unless a clinical change - s/p heparin Renal: ANA ROSA, resolved - possible ATN from hypoxia I&O: Intake & Output 07/08/23 07/09/23 07/10/23 07/11/23 23:59 23:59 23:59 23:59 Intake Total 2399.268 / 2399.268 599.317 / 599.317 370 / 370 Output Total 1260 / 1260 1979 / 1979 750 / 750 525 / 525 Balance 1139.268 / 1139.268 -1380.683 / -1380.683 -380 / -380 -525 / -525 Weight 56.3 kg Daily Fluid Goal:: even GI Nutrition: OK for diet Date of Last Bowel Movement: 07/10/23 Infectious Disease: Pulmonary Achromobacter colonization with acute infection - on ceftazidime - would recommend a total of 7-14 days of IV ceftaz - has midline - not a good candidate for outpatient infusions Hematologic: Anemia - continue to monitor Neurologic: No acute concerns Endocrine: No acute concerns Lines: Midline Prophylaxis: Lovenox Protonix Code Status: Resuscitation Status DNR/DNI Exam Narrative Exam Narrative: Gen: NAD, normal respiratory effort, well-nourished HENT: PERRL Chest: Mild to moderate respiratory distress. Clear anteriorly Heart: regular rate and rhythym, no murmurs, rubs or gallops Abdomen: Non-distended, soft, non tender Extremities: No clubbing, edema, cyanosis, rashes Neuro: AAOx3 , non focal Psych: cooperative, appropriate mental affect Most Recent VS/Results Last Vital Signs Temp 37.0 C 07/11/23 04:13 Pulse 81 07/11/23 04:13 Resp 17 07/11/23 04:13 BP 168/80 H 07/11/23 04:13 Pulse Ox 100 07/11/23 04:13 Laboratory Results - last 24 hr 07/10/23 07/10/23 07/11/23 05:55 05:55 05:16 WBC 10.95 H 9.01 RBC 3.26 L 3.27 L Hgb 9.8 L 9.9 L Hct 31.0 L 31.1 L MCV 95 95 MCH 30.1 30.3 MCHC 31.6 L 31.8 L RDW 12.9 13.1 Plt Count 313 323 MPV 9.6 9.6 Immature Gran % 1.1 1.1 Neutrophils % 59.6 59.2 Lymphocytes % 29.7 29.3 Monocytes % 8.7 8.9 Eosinophils % 0.6 1.2 Basophils % 0.3 0.3 Nucleated RBC % 0.2 0.0 Absolute Neutrophils 6.53 5.33 Absolute Lymphocytes 3.25 2.64 Absolute Monocytes 0.95 H 0.80 Absolute Eosinophils 0.07 0.11 Absolute Basophils 0.03 0.03 Sodium 140 Potassium 4.0 Chloride 103 Carbon Dioxide 29.7 Anion Gap 7.3 BUN 22 H Creatinine 0.9 Est GFR (CKD-EPI 2020) 65.84 Glucose 78 Calcium 10.0 Magnesium 1.7 L TSH 5.06 H Review of Systems All systems reviewed & are unremarkable except as noted in HPI and below
[2023-07-11 07:03] LABS: Anion Gap 6.8 mmol/L (3-11); BUN 23 mg/dL (7-18); CO2 31.2 mmol/L (21.0-32.0); CREATININE 0.9 mg/dL (0.55-1.02); Calcium 9.2 mg/dL (8.5-10.1); Chloride 102 mmol/L (98-107); Estimated GFR 65.84 (mL/min/1.73m2); Glucose 83 mg/dL (74-106); Magnesium 2.1 mg/dL (1.8-2.4); Potassium 4.4 mmol/L (3.5-5.1); Sodium 140 mmol/L (136-145)
[2023-07-11 07:06] LABS: Iron 47 ug/dL (50-170); Total Iron Binding Capacity 262 ug/dL (250-450); Transferrin Sat 18 % (15-50)
[2023-07-11 07:30] LABS: Ferritin 134 ng/mL (8-252); Folate 13.4 ng/mL (8.6-20.0); Vitamin B12 430 pg/mL (193-986)
[2023-07-11] MEDS: Budesonide 0.5 MG/2 ML UPD VIAL UPD ×2 (07:52→20:16)
[2023-07-11] MEDS: Albuterol 2.5 MG/3 ML INH SOLN VIAL UPD ×4 (07:52→20:16)
[2023-07-11] MEDS: Tiotropium/Olodaterol 10 PUFF INHALER 2 PUFF IH (07:53)
--- NOTE | 2023-07-11 08:12 | W.PULMPROG ---
Assessment and Plan Assessment and plan (1) Acute on chronic respiratory failure with hypoxia and hypercapnia: Status: Acute (2) Bronchiectasis with (acute) exacerbation: Status: Acute (3) Achromobacter pneumonia: Status: Acute (4) COPD exacerbation: Status: Acute Assessment and plan: This is a complex pulmonary patient with COPD and bronchiectasis colonized with multi-drug resistant Achromobacter. She is on ceftazidime, which it is sensitive to and has now been downgraded to Med-Surg. She should be admitted for at least 7 days of IV antibiotics. I am working on getting her a Triology device for home, which I do think will help her immensely. I recommend using PRVC mode on the ventilator tonight (same as AVAPS). I have put the settings in to start. Bronchiectasis exacerbation - albuterol QID and prn - hypertonic saline nebs tid - Acapella tid COPD Exacerbation - PO prednisone 40mg for 5 days, 30mg for 3 days, 20mg for 3 days, 10mg for 3 days, 5mg for 3 days - on Pulmicort nebs - on Stiolto - prn morphine and ativan Acute on chronic hypoxic and hypercapnic respiratory failure - due to above - trial PRVC (AVAPS) tonight: tidal volume 365, RR 8, EPAP 7 - night use and prn - I will work on getting her an AVAPS device for home use - has prn morphine Pulmonary Achromobacter colonization with acute infection - on ceftazidime - would recommend a total of 7-14 days of IV ceftaz - has midline - not a good candidate for outpatient infusions General Date Of Service Date of service: 07/11/23 Time of Service: 08:00 Reason for Consult: Respiratory failure Subjective Note Note: She is doing well today. She is feeling good and her SpO2 was good. Exam Narrative Exam Narrative: Gen: NAD, normal respiratory effort, well-nourished HENT: PERRL, nasal turbinates normal without erythema or inflammation, moist oral mucosa, Mallampati 2, No LAD or JVD Chest: No respiratory distress, normal appearance of chest, clear to auscultation bilaterally, no crackles or wheezes anteriorly, normal inspiratory effort Heart: regular rate and rhythym, no murmurs, rubs or gallops Abdomen: Non-distended, soft, non tender Extremities: No clubbing, edema, cyanosis, rashes Neuro: AAOx3 , non focal Psych: cooperative, appropriate mental affect Objective Last Vital Signs Temp 37.0 C 07/11/23 04:13 Pulse 86 07/11/23 08:00 Resp 24 07/11/23 08:00 BP 168/80 H 07/11/23 04:13 Pulse Ox 94 07/11/23 08:00 Laboratory Results - last 24 hr 07/11/23 07/11/23 07/11/23 05:16 05:16 05:16 WBC RBC Hgb Hct MCV MCH MCHC RDW Plt Count MPV Immature Gran % Neutrophils % Lymphocytes % Monocytes % Eosinophils % Basophils % Nucleated RBC % Absolute Neutrophils Absolute Lymphocytes Absolute Monocytes Absolute Eosinophils Absolute Basophils Sodium 140 Potassium 4.4 Chloride 102 Carbon Dioxide 31.2 Anion Gap 6.8 BUN 23 H Creatinine 0.9 Est GFR (CKD-EPI 2020) 65.84 Glucose 83 Calcium 9.2 Magnesium 2.1 Iron 47 L TIBC 262 Transferrin % Sat 18 Ferritin 134 Vitamin B12 430 Folate 13.4 07/11/23 05:16 WBC 9.01 RBC 3.27 L Hgb 9.9 L Hct 31.1 L MCV 95 MCH 30.3 MCHC 31.8 L RDW 13.1 Plt Count 323 MPV 9.6 Immature Gran % 1.1 Neutrophils % 59.2 Lymphocytes % 29.3 Monocytes % 8.9 Eosinophils % 1.2 Basophils % 0.3 Nucleated RBC % 0.0 Absolute Neutrophils 5.33 Absolute Lymphocytes 2.64 Absolute Monocytes 0.80 Absolute Eosinophils 0.11 Absolute Basophils 0.03 Sodium Potassium Chloride Carbon Dioxide Anion Gap BUN Creatinine Est GFR (CKD-EPI 2020) Glucose Calcium Magnesium Iron TIBC Transferrin % Sat Ferritin Vitamin B12 Folate Results Medications Medications: Active Medications Generic Name Dose Route Start Last Admin Trade Name Freq PRN Reason Stop Dose Admin Acetaminophen 650 mg 07/04/23 21:05 07/10/23 07:39 Acetaminophen 325 Mg Tab PO 650 mg Q4H PRN PRN Administration Albuterol Sulfate 2.5 mg 07/07/23 16:00 07/11/23 07:52 Albuterol 2.5 Mg/3 Ml Inh Soln Vial UPD 2.5 mg QID GERSON Administration Albuterol Sulfate 2.5 mg 07/07/23 15:42 07/08/23 12:38 Albuterol 2.5 Mg/3 Ml Inh Soln Vial UPD 2.5 mg Q2H PRN PRN Administration Aspirin 81 mg 07/10/23 08:30 07/10/23 07:40 Aspirin E.C. 81 Mg Tabec PO 81 mg DAILY GERSON Administration Budesonide 0.5 mg 07/06/23 20:00 07/11/23 07:52 Budesonide 0.5 Mg/2 Ml Upd Vial UPD 0.5 mg BID GERSON Administration Enoxaparin Sodium 40 mg 07/10/23 10:00 07/10/23 09:44 Enoxaparin 40 Mg/0.4 Ml Syr SC 40 mg Q24H GERSON Administration Guaifenesin 1,200 mg 07/09/23 20:00 07/10/23 20:50 Guaifenesin 600 Mg Tabcr PO 1,200 mg BID GERSON Administration Ceftazidime 1,000 mg/ Sodium 100 mls @ 200 mls/hr 07/05/23 10:00 07/10/23 22:19 Chloride IVPB Infused Q12H GERSON Infusion Sodium Chloride 500 mls @ 0 mls/hr 07/07/23 10:14 Saline 500ml Bag IV PRN PRN As Directed IV Miscellaneous Supplies 1 each 07/07/23 10:15 Iv Access IV DIRECTED [facility] Lorazepam 0.5 mg 07/05/23 14:21 07/10/23 21:31 Lorazepam 2 Mg/Ml Vial IVP 0.5 mg Q4H PRN PRN Administration Melatonin 6 mg 07/04/23 21:05 07/08/23 19:46 Melatonin 3 Mg Tab PO 6 mg HS PRN PRN Administration Insomnia Metoprolol Succinate 50 mg 07/05/23 08:30 07/10/23 07:40 Metoprolol Cr 50 Mg Tabcr PO 50 mg DAILY GERSON Administration Morphine Sulfate 1 mg 07/07/23 10:02 07/08/23 23:46 Morphine 2 Mg/Ml Syr IVP 1 mg Q4H PRN PRN Administration Pantoprazole Sodium 40 mg 07/08/23 10:00 07/10/23 09:45 Pantoprazole 40 Mg Vial IVP 40 mg Q24H GERSON Administration Prednisone 40 mg 07/08/23 08:30 07/10/23 07:40 Prednisone 20 Mg Tab PO 40 mg DAILY GERSON Administration Simvastatin 20 mg 07/04/23 22:00 07/10/23 20:50 Simvastatin 20 Mg Tab PO 20 mg QPM GERSON Administration Sodium Chloride 0 ml 07/07/23 10:14 07/10/23 21:32 Normal Saline Flush 10 Ml Syr IVP 30 ml PRN PRN Administration Sodium Chloride 4 ml 07/07/23 20:00 07/11/23 07:53 Sodium Chloride 7% For Inhalation 4 Ml Vial IH 4 ml TID GERSON Administration Tiotropium Lorton/Olodaterol 2 puff 07/06/23 08:30 07/11/23 07:53 Tiotropium/Olodaterol 10 Puff Inhaler IH 2 puffs DAILY GERSON Administration Allergies seasonal Allergy (Unknown, Uncoded 07/04/23 17:10) Labs 07/11/23 05:16 07/11/23 05:16 Labs: 07/10/23 10:56 Sputum Sputum Culture - Pending 07/10/23 10:56 Sputum Gram Stain - Final 07/08/23 21:00 Sputum - Expectorated Sputum Culture - Preliminary Normal Brooke 07/08/23 21:00 Sputum - Expectorated Gram Stain - Final 07/08/23 10:55 Urine - Cath Avila Indwelling Urine Culture - Final 07/04/23 17:20 Blood Blood Culture - Final NO GROWTH 120 HOURS 07/04/23 16:42 Blood Blood Culture - Final NO GROWTH 120 HOURS Laboratory Tests Range/Units 07/04/23 07/04/23 07/04/23 16:42 16:42 16:42 WBC (4.4-10.8) 10^3/uL 10.56 RBC (3.93-5.22) 10^6/uL 3.83 L Hgb (11.2-15.7) g/dL 11.6 Hct (36.0-46.0) % 36.5 MCV (80-95) fL 95 MCH (27.0-33.0) pg 30.3 MCHC (32.0-36.0) % 31.8 L RDW (11.7-14.6) % 12.1 Plt Count (130-400) 10^3/uL 407 H MPV (8.0-11.0) fL 9.1 Immature Gran % 0.3 Neutrophils % 86.2 Lymphocytes % 6.6 Monocytes % 5.4 Eosinophils % 0.9 Basophils % 0.6 Nucleated RBC % (0.0-0.3) % 0.0 Absolute Neutrophils (1.2-6.7) 10^3/uL 9.10 H Absolute Lymphocytes (1.2-3.4) 10^3/uL 0.70 L Absolute Monocytes (0.1-0.8) 10^3/uL 0.57 Absolute Eosinophils (0.0-0.7) 10^3/uL 0.10 Absolute Basophils (0.0-0.2) 10^3/uL 0.06 APTT (21.5-31.9) sec ABG Sample Site ABG pH (7.35-7.45) ABG pCO2 (35-45) mmHg ABG pO2 (80-105) mmHg ABG HCO3 (22-26) mmol/L ABG Total CO2 (23-27) mmol/L ABG O2 Saturation (95-98) % ABG Base Excess (-2-3) mmol/L VBG pH (7.31-7.41) VBG pCO2 (41-51) mmHg VBG pO2 mmHg VBG HCO3 (23-28) mmol/L VBG Total CO2 (24-29) mmol/L VBG O2 Saturation % VBG Base Excess (-2-3) mmol/L VBG Lactate (0.6-1.4) mmol/L 2.0 H FiO2 % Sodium (136-145) mmol/L 130 L Potassium (3.5-5.1) mmol/L 4.7 Chloride (98-107) mmol/L 93 L Carbon Dioxide (21.0-32.0) mmol/L 28.4 Anion Gap (3-11) mmol/L 8.6 BUN (7-18) mg/dL 31 H Creatinine (0.55-1.02) mg/dL 1.7 H Est GFR (CKD-EPI 2020) (mL/min/1.73m2) 30.70 Glucose (74-106) mg/dL 123 H Calcium (8.5-10.1) mg/dL 10.0 Magnesium (1.8-2.4) mg/dL 2.1 Iron (50-170) ug/dL TIBC (250-450) ug/dL Transferrin % Sat (15-50) % Ferritin (8-252) ng/mL Total Bilirubin (0.2-1.0) mg/dL 0.3 Conjugated Bilirubin (0.0-0.2) mg/dL AST (15-37) U/L 25 ALT (14-59) U/L 20 Alkaline Phosphatase (46-116) U/L 77 Troponin I (<or=60) ng/L < 50 NT-Pro-B Natriuret Pep (<300) pg/mL 511 H Total Protein (6.4-8.2) g/dL 9.1 H Albumin (3.4-5.0) g/dL 4.1 Vitamin B12 (193-986) pg/mL Folate (8.6-20.0) ng/mL TSH (0.36-3.74) uIU/mL Urine Color (Yellow) Urine Clarity (Clear) Urine pH (5-8) Ur Specific [place] (1.005-1.025) Urine Protein (Negative) mg/dL Urine Ketones (Negative) mg/dL Urine Blood (Negative) Urine Nitrite (Negative) Urine Bilirubin (Negative) Urine Urobilinogen (Up to 0.2) mg/dL Ur Leukocyte Esterase (Negative) Urine RBC (0-2) HPF Urine WBC (0-5) HPF Ur Epithelial Cells (Negative) HPF Urine Crystals (Negative) HPF Urine Bacteria (Negative) HPF Urine Casts (Negative) LPF Urine Mucus (Negative) Ur Culture Indicated? Urine Glucose (Negative) mg/dL COVID-19 Source SARS-CoV-2 (PCR) (Negative) Influenza Type A (PCR) (Negative) Influenza Type B (PCR) (Negative) RSV (PCR) (Negative) Add-On Test Request Range/Units 07/04/23 07/04/23 07/04/23 16:42 16:42 18:15 WBC (4.4-10.8) 10^3/uL RBC (3.93-5.22) 10^6/uL Hgb (11.2-15.7) g/dL Hct (36.0-46.0) % MCV (80-95) fL MCH (27.0-33.0) pg MCHC (32.0-36.0) % RDW (11.7-14.6) % Plt Count (130-400) 10^3/uL MPV (8.0-11.0) fL Immature Gran % Neutrophils % Lymphocytes % Monocytes % Eosinophils % Basophils % Nucleated RBC % (0.0-0.3) % Absolute Neutrophils (1.2-6.7) 10^3/uL Absolute Lymphocytes (1.2-3.4) 10^3/uL Absolute Monocytes (0.1-0.8) 10^3/uL Absolute Eosinophils (0.0-0.7) 10^3/uL Absolute Basophils (0.0-0.2) 10^3/uL APTT (21.5-31.9) sec ABG Sample Site Right Radial ABG pH (7.35-7.45) 7.33 L ABG pCO2 (35-45) mmHg 48 H ABG pO2 (80-105) mmHg 87 ABG HCO3 (22-26) mmol/L 26 ABG Total CO2 (23-27) mmol/L 24 ABG O2 Saturation (95-98) % 97 ABG Base Excess (-2-3) mmol/L -1 VBG pH (7.31-7.41) 7.25 L VBG pCO2 (41-51) mmHg 65 H* VBG pO2 mmHg 26 VBG HCO3 (23-28) mmol/L 29 H VBG Total CO2 (24-29) mmol/L 28 VBG O2 Saturation % 35 VBG Base Excess (-2-3) mmol/L 2 VBG Lactate (0.6-1.4) mmol/L FiO2 % 30 Sodium (136-145) mmol/L Potassium (3.5-5.1) mmol/L Chloride (98-107) mmol/L Carbon Dioxide (21.0-32.0) mmol/L Anion Gap (3-11) mmol/L BUN (7-18) mg/dL Creatinine (0.55-1.02) mg/dL Est GFR (CKD-EPI 2020) (mL/min/1.73m2) Glucose (74-106) mg/dL Calcium (8.5-10.1) mg/dL Magnesium (1.8-2.4) mg/dL Iron (50-170) ug/dL TIBC (250-450) ug/dL Transferrin % Sat (15-50) % Ferritin (8-252) ng/mL Total Bilirubin (0.2-1.0) mg/dL Conjugated Bilirubin (0.0-0.2) mg/dL AST (15-37) U/L ALT (14-59) U/L Alkaline Phosphatase (46-116) U/L Troponin I (<or=60) ng/L NT-Pro-B Natriuret Pep (<300) pg/mL Total Protein (6.4-8.2) g/dL Albumin (3.4-5.0) g/dL Vitamin B12 (193-986) pg/mL Folate (8.6-20.0) ng/mL TSH (0.36-3.74) uIU/mL Urine Color (Yellow) Urine Clarity (Clear) Urine pH (5-8) Ur Specific [place] (1.005-1.025) Urine Protein (Negative) mg/dL Urine Ketones (Negative) mg/dL Urine Blood (Negative) Urine Nitrite (Negative) Urine Bilirubin (Negative) Urine Urobilinogen (Up to 0.2) mg/dL Ur Leukocyte Esterase (Negative) Urine RBC (0-2) HPF Urine WBC (0-5) HPF Ur Epithelial Cells (Negative) HPF Urine Crystals (Negative) HPF Urine Bacteria (Negative) HPF Urine Casts (Negative) LPF Urine Mucus (Negative) Ur Culture Indicated? Urine Glucose (Negative) mg/dL COVID-19 Source Nasopharynx SARS-CoV-2 (PCR) (Negative) Negative Influenza Type A (PCR) (Negative) Negative Influenza Type B (PCR) (Negative) Negative RSV (PCR) (Negative) Negative Add-On Test Request Range/Units 07/04/23 07/05/23 07/05/23 19:26 13:23 13:23 WBC (4.4-10.8) 10^3/uL RBC (3.93-5.22) 10^6/uL Hgb (11.2-15.7) g/dL Hct (36.0-46.0) % MCV (80-95) fL MCH (27.0-33.0) pg MCHC (32.0-36.0) % RDW (11.7-14.6) % Plt Count (130-400) 10^3/uL MPV (8.0-11.0) fL Immature Gran % Neutrophils % Lymphocytes % Monocytes % Eosinophils % Basophils % Nucleated RBC % (0.0-0.3) % Absolute Neutrophils (1.2-6.7) 10^3/uL Absolute Lymphocytes (1.2-3.4) 10^3/uL Absolute Monocytes (0.1-0.8) 10^3/uL Absolute Eosinophils (0.0-0.7) 10^3/uL Absolute Basophils (0.0-0.2) 10^3/uL APTT (21.5-31.9) sec ABG Sample Site ABG pH (7.35-7.45) ABG pCO2 (35-45) mmHg ABG pO2 (80-105) mmHg ABG HCO3 (22-26) mmol/L ABG Total CO2 (23-27) mmol/L ABG O2 Saturation (95-98) % ABG Base Excess (-2-3) mmol/L VBG pH (7.31-7.41) 7.35 VBG pCO2 (41-51) mmHg 46 VBG pO2 mmHg 42 VBG HCO3 (23-28) mmol/L 26 VBG Total CO2 (24-29) mmol/L 24 VBG O2 Saturation % 76 VBG Base Excess (-2-3) mmol/L 0 VBG Lactate (0.6-1.4) mmol/L 1.9 H FiO2 % Sodium (136-145) mmol/L Potassium (3.5-5.1) mmol/L Chloride (98-107) mmol/L Carbon Dioxide (21.0-32.0) mmol/L Anion Gap (3-11) mmol/L BUN (7-18) mg/dL Creatinine (0.55-1.02) mg/dL Est GFR (CKD-EPI 2020) (mL/min/1.73m2) Glucose (74-106) mg/dL Calcium (8.5-10.1) mg/dL Magnesium (1.8-2.4) mg/dL Iron (50-170) ug/dL TIBC (250-450) ug/dL Transferrin % Sat (15-50) % Ferritin (8-252) ng/mL Total Bilirubin (0.2-1.0) mg/dL Conjugated Bilirubin (0.0-0.2) mg/dL AST (15-37) U/L ALT (14-59) U/L Alkaline Phosphatase (46-116) U/L Troponin I (<or=60) ng/L < 50 NT-Pro-B Natriuret Pep (<300) pg/mL Total Protein (6.4-8.2) g/dL Albumin (3.4-5.0) g/dL Vitamin B12 (193-986) pg/mL Folate (8.6-20.0) ng/mL TSH (0.36-3.74) uIU/mL Urine Color (Yellow) Urine Clarity (Clear) Urine pH (5-8) Ur Specific [place] (1.005-1.025) Urine Protein (Negative) mg/dL Urine Ketones (Negative) mg/dL Urine Blood (Negative) Urine Nitrite (Negative) Urine Bilirubin (Negative) Urine Urobilinogen (Up to 0.2) mg/dL Ur Leukocyte Esterase (Negative) Urine RBC (0-2) HPF Urine WBC (0-5) HPF Ur Epithelial Cells (Negative) HPF Urine Crystals (Negative) HPF Urine Bacteria (Negative) HPF Urine Casts (Negative) LPF Urine Mucus (Negative) Ur Culture Indicated? Urine Glucose (Negative) mg/dL COVID-19 Source SARS-CoV-2 (PCR) (Negative) Influenza Type A (PCR) (Negative) Influenza Type B (PCR) (Negative) RSV (PCR) (Negative) Add-On Test Request Range/Units 07/06/23 07/06/23 07/07/23 11:09 11:09 05:40 WBC (4.4-10.8) 10^3/uL 11.36 H RBC (3.93-5.22) 10^6/uL 3.21 L Hgb (11.2-15.7) g/dL 9.7 L Hct (36.0-46.0) % 30.9 L MCV (80-95) fL 96 H MCH (27.0-33.0) pg 30.2 MCHC (32.0-36.0) % 31.4 L RDW (11.7-14.6) % 12.6 Plt Count (130-400) 10^3/uL 318 MPV (8.0-11.0) fL 9.4 Immature Gran % 0.8 Neutrophils % 91.6 Lymphocytes % 2.6 Monocytes % 4.8 Eosinophils % 0.1 Basophils % 0.1 Nucleated RBC % (0.0-0.3) % 0.0 Absolute Neutrophils (1.2-6.7) 10^3/uL 10.41 H Absolute Lymphocytes (1.2-3.4) 10^3/uL 0.30 L Absolute Monocytes (0.1-0.8) 10^3/uL 0.55 Absolute Eosinophils (0.0-0.7) 10^3/uL 0.01 Absolute Basophils (0.0-0.2) 10^3/uL 0.01 APTT (21.5-31.9) sec ABG Sample Site ABG pH (7.35-7.45) ABG pCO2 (35-45) mmHg ABG pO2 (80-105) mmHg ABG HCO3 (22-26) mmol/L ABG Total CO2 (23-27) mmol/L ABG O2 Saturation (95-98) % ABG Base Excess (-2-3) mmol/L VBG pH (7.31-7.41) VBG pCO2 (41-51) mmHg VBG pO2 mmHg VBG HCO3 (23-28) mmol/L VBG Total CO2 (24-29) mmol/L VBG O2 Saturation % VBG Base Excess (-2-3) mmol/L VBG Lactate (0.6-1.4) mmol/L FiO2 % Sodium (136-145) mmol/L 137 138 Potassium (3.5-5.1) mmol/L 5.0 4.9 Chloride (98-107) mmol/L 103 104 Carbon Dioxide (21.0-32.0) mmol/L 26.4 28.0 Anion Gap (3-11) mmol/L 7.6 6.0 BUN (7-18) mg/dL 30 H 28 H Creatinine (0.55-1.02) mg/dL 1.3 H 1.2 H Est GFR (CKD-EPI 2020) (mL/min/1.73m2) 42.35 46.62 Glucose (74-106) mg/dL 161 H 140 H Calcium (8.5-10.1) mg/dL 9.5 9.2 Magnesium (1.8-2.4) mg/dL 2.0 1.8 Iron (50-170) ug/dL TIBC (250-450) ug/dL Transferrin % Sat (15-50) % Ferritin (8-252) ng/mL Total Bilirubin (0.2-1.0) mg/dL Conjugated Bilirubin (0.0-0.2) mg/dL AST (15-37) U/L ALT (14-59) U/L Alkaline Phosphatase (46-116) U/L Troponin I (<or=60) ng/L NT-Pro-B Natriuret Pep (<300) pg/mL Total Protein (6.4-8.2) g/dL Albumin (3.4-5.0) g/dL Vitamin B12 (193-986) pg/mL Folate (8.6-20.0) ng/mL TSH (0.36-3.74) uIU/mL Urine Color (Yellow) Urine Clarity (Clear) Urine pH (5-8) Ur Specific [place] (1.005-1.025) Urine Protein (Negative) mg/dL Urine Ketones (Negative) mg/dL Urine Blood (Negative) Urine Nitrite (Negative) Urine Bilirubin (Negative) Urine Urobilinogen (Up to 0.2) mg/dL Ur Leukocyte Esterase (Negative) Urine RBC (0-2) HPF Urine WBC (0-5) HPF Ur Epithelial Cells (Negative) HPF Urine Crystals (Negative) HPF Urine Bacteria (Negative) HPF Urine Casts (Negative) LPF Urine Mucus (Negative) Ur Culture Indicated? Urine Glucose (Negative) mg/dL COVID-19 Source SARS-CoV-2 (PCR) (Negative) Influenza Type A (PCR) (Negative) Influenza Type B (PCR) (Negative) RSV (PCR) (Negative) Add-On Test Request Range/Units 07/07/23 07/07/23 07/07/23 05:40 10:10 11:30 WBC (4.4-10.8) 10^3/uL 9.18 RBC (3.93-5.22) 10^6/uL 2.99 L Hgb (11.2-15.7) g/dL 9.2 L Hct (36.0-46.0) % 29.1 L MCV (80-95) fL 97 H MCH (27.0-33.0) pg 30.8 MCHC (32.0-36.0) % 31.6 L RDW (11.7-14.6) % 12.8 Plt Count (130-400) 10^3/uL 322 MPV (8.0-11.0) fL 9.6 Immature Gran % 0.7 Neutrophils % 93.1 Lymphocytes % 3.9 Monocytes % 2.1 Eosinophils % 0.1 Basophils % 0.1 Nucleated RBC % (0.0-0.3) % 0.0 Absolute Neutrophils (1.2-6.7) 10^3/uL 8.55 H Absolute Lymphocytes (1.2-3.4) 10^3/uL 0.36 L Absolute Monocytes (0.1-0.8) 10^3/uL 0.19 Absolute Eosinophils (0.0-0.7) 10^3/uL 0.01 Absolute Basophils (0.0-0.2) 10^3/uL 0.01 APTT (21.5-31.9) sec 23.3 ABG Sample Site ABG pH (7.35-7.45) ABG pCO2 (35-45) mmHg ABG pO2 (80-105) mmHg ABG HCO3 (22-26) mmol/L ABG Total CO2 (23-27) mmol/L ABG O2 Saturation (95-98) % ABG Base Excess (-2-3) mmol/L VBG pH (7.31-7.41) VBG pCO2 (41-51) mmHg VBG pO2 mmHg VBG HCO3 (23-28) mmol/L VBG Total CO2 (24-29) mmol/L VBG O2 Saturation % VBG Base Excess (-2-3) mmol/L VBG Lactate (0.6-1.4) mmol/L FiO2 % Sodium (136-145) mmol/L Potassium (3.5-5.1) mmol/L Chloride (98-107) mmol/L Carbon Dioxide (21.0-32.0) mmol/L Anion Gap (3-11) mmol/L BUN (7-18) mg/dL Creatinine (0.55-1.02) mg/dL Est GFR (CKD-EPI 2020) (mL/min/1.73m2) Glucose (74-106) mg/dL Calcium (8.5-10.1) mg/dL Magnesium (1.8-2.4) mg/dL Iron (50-170) ug/dL TIBC (250-450) ug/dL Transferrin % Sat (15-50) % Ferritin (8-252) ng/mL Total Bilirubin (0.2-1.0) mg/dL Conjugated Bilirubin (0.0-0.2) mg/dL AST (15-37) U/L ALT (14-59) U/L Alkaline Phosphatase (46-116) U/L Troponin I (<or=60) ng/L 251 H* NT-Pro-B Natriuret Pep (<300) pg/mL Total Protein (6.4-8.2) g/dL Albumin (3.4-5.0) g/dL Vitamin B12 (193-986) pg/mL Folate (8.6-20.0) ng/mL TSH (0.36-3.74) uIU/mL Urine Color (Yellow) Urine Clarity (Clear) Urine pH (5-8) Ur Specific [place] (1.005-1.025) Urine Protein (Negative) mg/dL Urine Ketones (Negative) mg/dL Urine Blood (Negative) Urine Nitrite (Negative) Urine Bilirubin (Negative) Urine Urobilinogen (Up to 0.2) mg/dL Ur Leukocyte Esterase (Negative) Urine RBC (0-2) HPF Urine WBC (0-5) HPF Ur Epithelial Cells (Negative) HPF Urine Crystals (Negative) HPF Urine Bacteria (Negative) HPF Urine Casts (Negative) LPF Urine Mucus (Negative) Ur Culture Indicated? Urine Glucose (Negative) mg/dL COVID-19 Source SARS-CoV-2 (PCR) (Negative) Influenza Type A (PCR) (Negative) Influenza Type B (PCR) (Negative) RSV (PCR) (Negative) Add-On Test Request Range/Units 07/07/23 07/07/23 07/07/23 12:10 14:23 19:36 WBC (4.4-10.8) 10^3/uL RBC (3.93-5.22) 10^6/uL Hgb (11.2-15.7) g/dL Hct (36.0-46.0) % MCV (80-95) fL MCH (27.0-33.0) pg MCHC (32.0-36.0) % RDW (11.7-14.6) % Plt Count (130-400) 10^3/uL MPV (8.0-11.0) fL Immature Gran % Neutrophils % Lymphocytes % Monocytes % Eosinophils % Basophils % Nucleated RBC % (0.0-0.3) % Absolute Neutrophils (1.2-6.7) 10^3/uL Absolute Lymphocytes (1.2-3.4) 10^3/uL Absolute Monocytes (0.1-0.8) 10^3/uL Absolute Eosinophils (0.0-0.7) 10^3/uL Absolute Basophils (0.0-0.2) 10^3/uL APTT (21.5-31.9) sec 59.9 H ABG Sample Site ABG pH (7.35-7.45) ABG pCO2 (35-45) mmHg ABG pO2 (80-105) mmHg ABG HCO3 (22-26) mmol/L ABG Total CO2 (23-27) mmol/L ABG O2 Saturation (95-98) % ABG Base Excess (-2-3) mmol/L VBG pH (7.31-7.41) 7.30 L VBG pCO2 (41-51) mmHg 55 H VBG pO2 mmHg 41 VBG HCO3 (23-28) mmol/L 27 VBG Total CO2 (24-29) mmol/L 26 VBG O2 Saturation % 72 VBG Base Excess (-2-3) mmol/L 1 VBG Lactate (0.6-1.4) mmol/L FiO2 % Sodium (136-145) mmol/L Potassium (3.5-5.1) mmol/L Chloride (98-107) mmol/L Carbon Dioxide (21.0-32.0) mmol/L Anion Gap (3-11) mmol/L BUN (7-18) mg/dL Creatinine (0.55-1.02) mg/dL Est GFR (CKD-EPI 2020) (mL/min/1.73m2) Glucose (74-106) mg/dL Calcium (8.5-10.1) mg/dL Magnesium (1.8-2.4) mg/dL Iron (50-170) ug/dL TIBC (250-450) ug/dL Transferrin % Sat (15-50) % Ferritin (8-252) ng/mL Total Bilirubin (0.2-1.0) mg/dL Conjugated Bilirubin (0.0-0.2) mg/dL AST (15-37) U/L ALT (14-59) U/L Alkaline Phosphatase (46-116) U/L Troponin I (<or=60) ng/L 580 H* NT-Pro-B Natriuret Pep (<300) pg/mL Total Protein (6.4-8.2) g/dL Albumin (3.4-5.0) g/dL Vitamin B12 (193-986) pg/mL Folate (8.6-20.0) ng/mL TSH (0.36-3.74) uIU/mL Urine Color (Yellow) Urine Clarity (Clear) Urine pH (5-8) Ur Specific [place] (1.005-1.025) Urine Protein (Negative) mg/dL Urine Ketones (Negative) mg/dL Urine Blood (Negative) Urine Nitrite (Negative) Urine Bilirubin (Negative) Urine Urobilinogen (Up to 0.2) mg/dL Ur Leukocyte Esterase (Negative) Urine RBC (0-2) HPF Urine WBC (0-5) HPF Ur Epithelial Cells (Negative) HPF Urine Crystals (Negative) HPF Urine Bacteria (Negative) HPF Urine Casts (Negative) LPF Urine Mucus (Negative) Ur Culture Indicated? Urine Glucose (Negative) mg/dL COVID-19 Source SARS-CoV-2 (PCR) (Negative) Influenza Type A (PCR) (Negative) Influenza Type B (PCR) (Negative) RSV (PCR) (Negative) Add-On Test Request Range/Units 07/08/23 07/08/23 07/08/23 05:37 05:37 05:37 WBC (4.4-10.8) 10^3/uL 6.14 RBC (3.93-5.22) 10^6/uL 2.70 L Hgb (11.2-15.7) g/dL 8.1 L Hct (36.0-46.0) % 25.9 L MCV (80-95) fL 96 H MCH (27.0-33.0) pg 30.0 MCHC (32.0-36.0) % 31.3 L RDW (11.7-14.6) % 12.9 Plt Count (130-400) 10^3/uL 254 MPV (8.0-11.0) fL 9.4 Immature Gran % Neutrophils % Lymphocytes % Monocytes % Eosinophils % Basophils % Nucleated RBC % (0.0-0.3) % Absolute Neutrophils (1.2-6.7) 10^3/uL Absolute Lymphocytes (1.2-3.4) 10^3/uL Absolute Monocytes (0.1-0.8) 10^3/uL Absolute Eosinophils (0.0-0.7) 10^3/uL Absolute Basophils (0.0-0.2) 10^3/uL APTT (21.5-31.9) sec 63.9 H ABG Sample Site ABG pH (7.35-7.45) ABG pCO2 (35-45) mmHg ABG pO2 (80-105) mmHg ABG HCO3 (22-26) mmol/L ABG Total CO2 (23-27) mmol/L ABG O2 Saturation (95-98) % ABG Base Excess (-2-3) mmol/L VBG pH (7.31-7.41) VBG pCO2 (41-51) mmHg VBG pO2 mmHg VBG HCO3 (23-28) mmol/L VBG Total CO2 (24-29) mmol/L VBG O2 Saturation % VBG Base Excess (-2-3) mmol/L VBG Lactate (0.6-1.4) mmol/L FiO2 % Sodium (136-145) mmol/L 139 Potassium (3.5-5.1) mmol/L 5.6 H Chloride (98-107) mmol/L 103 Carbon Dioxide (21.0-32.0) mmol/L 28.8 Anion Gap (3-11) mmol/L 7.2 BUN (7-18) mg/dL 28 H Creatinine (0.55-1.02) mg/dL 1.2 H Est GFR (CKD-EPI 2020) (mL/min/1.73m2) 46.62 Glucose (74-106) mg/dL 142 H Calcium (8.5-10.1) mg/dL 9.1 Magnesium (1.8-2.4) mg/dL Iron (50-170) ug/dL TIBC (250-450) ug/dL Transferrin % Sat (15-50) % Ferritin (8-252) ng/mL Total Bilirubin (0.2-1.0) mg/dL Conjugated Bilirubin (0.0-0.2) mg/dL AST (15-37) U/L ALT (14-59) U/L Alkaline Phosphatase (46-116) U/L Troponin I (<or=60) ng/L 691 H* NT-Pro-B Natriuret Pep (<300) pg/mL Total Protein (6.4-8.2) g/dL Albumin (3.4-5.0) g/dL Vitamin B12 (193-986) pg/mL Folate (8.6-20.0) ng/mL TSH (0.36-3.74) uIU/mL Urine Color (Yellow) Urine Clarity (Clear) Urine pH (5-8) Ur Specific [place] (1.005-1.025) Urine Protein (Negative) mg/dL Urine Ketones (Negative) mg/dL Urine Blood (Negative) Urine Nitrite (Negative) Urine Bilirubin (Negative) Urine Urobilinogen (Up to 0.2) mg/dL Ur Leukocyte Esterase (Negative) Urine RBC (0-2) HPF Urine WBC (0-5) HPF Ur Epithelial Cells (Negative) HPF Urine Crystals (Negative) HPF Urine Bacteria (Negative) HPF Urine Casts (Negative) LPF Urine Mucus (Negative) Ur Culture Indicated? Urine Glucose (Negative) mg/dL COVID-19 Source SARS-CoV-2 (PCR) (Negative) Influenza Type A (PCR) (Negative) Influenza Type B (PCR) (Negative) RSV (PCR) (Negative) Add-On Test Request Range/Units 07/08/23 07/08/23 07/08/23 05:37 10:55 12:10 WBC (4.4-10.8) 10^3/uL RBC (3.93-5.22) 10^6/uL Hgb (11.2-15.7) g/dL Hct (36.0-46.0) % MCV (80-95) fL MCH (27.0-33.0) pg MCHC (32.0-36.0) % RDW (11.7-14.6) % Plt Count (130-400) 10^3/uL MPV (8.0-11.0) fL Immature Gran % Neutrophils % Lymphocytes % Monocytes % Eosinophils % Basophils % Nucleated RBC % (0.0-0.3) % Absolute Neutrophils (1.2-6.7) 10^3/uL Absolute Lymphocytes (1.2-3.4) 10^3/uL Absolute Monocytes (0.1-0.8) 10^3/uL Absolute Eosinophils (0.0-0.7) 10^3/uL Absolute Basophils (0.0-0.2) 10^3/uL APTT (21.5-31.9) sec ABG Sample Site ABG pH (7.35-7.45) ABG pCO2 (35-45) mmHg ABG pO2 (80-105) mmHg ABG HCO3 (22-26) mmol/L ABG Total CO2 (23-27) mmol/L ABG O2 Saturation (95-98) % ABG Base Excess (-2-3) mmol/L VBG pH (7.31-7.41) 7.37 VBG pCO2 (41-51) mmHg 50 VBG pO2 mmHg 34 VBG HCO3 (23-28) mmol/L 29 H VBG Total CO2 (24-29) mmol/L 28 VBG O2 Saturation % 63 VBG Base Excess (-2-3) mmol/L 4 H VBG Lactate (0.6-1.4) mmol/L FiO2 % Sodium (136-145) mmol/L 138 Potassium (3.5-5.1) mmol/L 4.7 Chloride (98-107) mmol/L 103 Carbon Dioxide (21.0-32.0) mmol/L 28.0 Anion Gap (3-11) mmol/L 7.0 BUN (7-18) mg/dL 27 H Creatinine (0.55-1.02) mg/dL 1.2 H Est GFR (CKD-EPI 2020) (mL/min/1.73m2) 46.62 Glucose (74-106) mg/dL 129 H Calcium (8.5-10.1) mg/dL 9.3 Magnesium (1.8-2.4) mg/dL Iron (50-170) ug/dL TIBC (250-450) ug/dL Transferrin % Sat (15-50) % Ferritin (8-252) ng/mL Total Bilirubin (0.2-1.0) mg/dL Conjugated Bilirubin (0.0-0.2) mg/dL AST (15-37) U/L ALT (14-59) U/L Alkaline Phosphatase (46-116) U/L Troponin I (<or=60) ng/L 599 H* NT-Pro-B Natriuret Pep (<300) pg/mL Total Protein (6.4-8.2) g/dL Albumin (3.4-5.0) g/dL Vitamin B12 (193-986) pg/mL Folate (8.6-20.0) ng/mL TSH (0.36-3.74) uIU/mL Urine Color (Yellow) Yellow Urine Clarity (Clear) Clear Urine pH (5-8) 6.0 Ur Specific [place] (1.005-1.025) 1.010 Urine Protein (Negative) mg/dL 30 H Urine Ketones (Negative) mg/dL Negative Urine Blood (Negative) Large H Urine Nitrite (Negative) Negative Urine Bilirubin (Negative) Negative Urine Urobilinogen (Up to 0.2) mg/dL 0.2 Ur Leukocyte Esterase (Negative) Trace H Urine RBC (0-2) HPF 20-50 H Urine WBC (0-5) HPF 5-10 Ur Epithelial Cells (Negative) HPF Rare Urine Crystals (Negative) HPF Negative Urine Bacteria (Negative) HPF Few Urine Casts (Negative) LPF Negative Urine Mucus (Negative) Negative Ur Culture Indicated? Yes Urine Glucose (Negative) mg/dL Negative COVID-19 Source SARS-CoV-2 (PCR) (Negative) Influenza Type A (PCR) (Negative) Influenza Type B (PCR) (Negative) RSV (PCR) (Negative) Add-On Test Request Range/Units 07/08/23 07/09/23 07/09/23 13:22 06:19 06:19 WBC (4.4-10.8) 10^3/uL RBC (3.93-5.22) 10^6/uL Hgb (11.2-15.7) g/dL 8.8 L Hct (36.0-46.0) % MCV (80-95) fL MCH (27.0-33.0) pg MCHC (32.0-36.0) % RDW (11.7-14.6) % Plt Count (130-400) 10^3/uL MPV (8.0-11.0) fL Immature Gran % Neutrophils % Lymphocytes % Monocytes % Eosinophils % Basophils % Nucleated RBC % (0.0-0.3) % Absolute Neutrophils (1.2-6.7) 10^3/uL Absolute Lymphocytes (1.2-3.4) 10^3/uL Absolute Monocytes (0.1-0.8) 10^3/uL Absolute Eosinophils (0.0-0.7) 10^3/uL Absolute Basophils (0.0-0.2) 10^3/uL APTT (21.5-31.9) sec 99.8 H* ABG Sample Site ABG pH (7.35-7.45) ABG pCO2 (35-45) mmHg ABG pO2 (80-105) mmHg ABG HCO3 (22-26) mmol/L ABG Total CO2 (23-27) mmol/L ABG O2 Saturation (95-98) % ABG Base Excess (-2-3) mmol/L VBG pH (7.31-7.41) VBG pCO2 (41-51) mmHg VBG pO2 mmHg VBG HCO3 (23-28) mmol/L VBG Total CO2 (24-29) mmol/L VBG O2 Saturation % VBG Base Excess (-2-3) mmol/L VBG Lactate (0.6-1.4) mmol/L FiO2 % Sodium (136-145) mmol/L Potassium (3.5-5.1) mmol/L Chloride (98-107) mmol/L Carbon Dioxide (21.0-32.0) mmol/L Anion Gap (3-11) mmol/L BUN (7-18) mg/dL Creatinine (0.55-1.02) mg/dL Est GFR (CKD-EPI 2020) (mL/min/1.73m2) Glucose (74-106) mg/dL Calcium (8.5-10.1) mg/dL Magnesium (1.8-2.4) mg/dL Iron (50-170) ug/dL TIBC (250-450) ug/dL Transferrin % Sat (15-50) % Ferritin (8-252) ng/mL Total Bilirubin (0.2-1.0) mg/dL Conjugated Bilirubin (0.0-0.2) mg/dL AST (15-37) U/L ALT (14-59) U/L Alkaline Phosphatase (46-116) U/L Troponin I (<or=60) ng/L 358 H* NT-Pro-B Natriuret Pep (<300) pg/mL 3699 H Total Protein (6.4-8.2) g/dL Albumin (3.4-5.0) g/dL Vitamin B12 (193-986) pg/mL Folate (8.6-20.0) ng/mL TSH (0.36-3.74) uIU/mL Urine Color (Yellow) Urine Clarity (Clear) Urine pH (5-8) Ur Specific [place] (1.005-1.025) Urine Protein (Negative) mg/dL Urine Ketones (Negative) mg/dL Urine Blood (Negative) Urine Nitrite (Negative) Urine Bilirubin (Negative) Urine Urobilinogen (Up to 0.2) mg/dL Ur Leukocyte Esterase (Negative) Urine RBC (0-2) HPF Urine WBC (0-5) HPF Ur Epithelial Cells (Negative) HPF Urine Crystals (Negative) HPF Urine Bacteria (Negative) HPF Urine Casts (Negative) LPF Urine Mucus (Negative) Ur Culture Indicated? Urine Glucose (Negative) mg/dL COVID-19 Source SARS-CoV-2 (PCR) (Negative) Influenza Type A (PCR) (Negative) Influenza Type B (PCR) (Negative) RSV (PCR) (Negative) Add-On Test Request Range/Units 07/09/23 07/09/23 07/09/23 06:19 06:19 06:19 WBC (4.4-10.8) 10^3/uL 8.62 RBC (3.93-5.22) 10^6/uL 2.73 L Hgb (11.2-15.7) g/dL 8.1 L Hct (36.0-46.0) % 26.5 L MCV (80-95) fL 97 H MCH (27.0-33.0) pg 29.7 MCHC (32.0-36.0) % 30.6 L RDW (11.7-14.6) % 12.9 Plt Count (130-400) 10^3/uL 242 MPV (8.0-11.0) fL 9.5 Immature Gran % Neutrophils % Lymphocytes % Monocytes % Eosinophils % Basophils % Nucleated RBC % (0.0-0.3) % Absolute Neutrophils (1.2-6.7) 10^3/uL Absolute Lymphocytes (1.2-3.4) 10^3/uL Absolute Monocytes (0.1-0.8) 10^3/uL Absolute Eosinophils (0.0-0.7) 10^3/uL Absolute Basophils (0.0-0.2) 10^3/uL APTT (21.5-31.9) sec ABG Sample Site ABG pH (7.35-7.45) ABG pCO2 (35-45) mmHg ABG pO2 (80-105) mmHg ABG HCO3 (22-26) mmol/L ABG Total CO2 (23-27) mmol/L ABG O2 Saturation (95-98) % ABG Base Excess (-2-3) mmol/L VBG pH (7.31-7.41) VBG pCO2 (41-51) mmHg VBG pO2 mmHg VBG HCO3 (23-28) mmol/L VBG Total CO2 (24-29) mmol/L VBG O2 Saturation % VBG Base Excess (-2-3) mmol/L VBG Lactate (0.6-1.4) mmol/L FiO2 % Sodium (136-145) mmol/L 138 Potassium (3.5-5.1) mmol/L 4.2 Chloride (98-107) mmol/L 105 Carbon Dioxide (21.0-32.0) mmol/L 27.7 Anion Gap (3-11) mmol/L 5.3 BUN (7-18) mg/dL 23 H Creatinine (0.55-1.02) mg/dL 1.0 Est GFR (CKD-EPI 2020) (mL/min/1.73m2) 58.02 Glucose (74-106) mg/dL 114 H Calcium (8.5-10.1) mg/dL 9.0 Magnesium (1.8-2.4) mg/dL Iron (50-170) ug/dL TIBC (250-450) ug/dL Transferrin % Sat (15-50) % Ferritin (8-252) ng/mL Total Bilirubin (0.2-1.0) mg/dL Conjugated Bilirubin (0.0-0.2) mg/dL AST (15-37) U/L ALT (14-59) U/L Alkaline Phosphatase (46-116) U/L Troponin I (<or=60) ng/L NT-Pro-B Natriuret Pep (<300) pg/mL Total Protein (6.4-8.2) g/dL Albumin (3.4-5.0) g/dL Vitamin B12 (193-986) pg/mL Folate (8.6-20.0) ng/mL TSH (0.36-3.74) uIU/mL Urine Color (Yellow) Urine Clarity (Clear) Urine pH (5-8) Ur Specific [place] (1.005-1.025) Urine Protein (Negative) mg/dL Urine Ketones (Negative) mg/dL Urine Blood (Negative) Urine Nitrite (Negative) Urine Bilirubin (Negative) Urine Urobilinogen (Up to 0.2) mg/dL Ur Leukocyte Esterase (Negative) Urine RBC (0-2) HPF Urine WBC (0-5) HPF Ur Epithelial Cells (Negative) HPF Urine Crystals (Negative) HPF Urine Bacteria (Negative) HPF Urine Casts (Negative) LPF Urine Mucus (Negative) Ur Culture Indicated? Urine Glucose (Negative) mg/dL COVID-19 Source SARS-CoV-2 (PCR) (Negative) Influenza Type A (PCR) (Negative) Influenza Type B (PCR) (Negative) RSV (PCR) (Negative) Add-On Test Request DONE Range/Units 07/09/23 07/09/23 07/10/23 06:19 13:30 05:55 WBC (4.4-10.8) 10^3/uL RBC (3.93-5.22) 10^6/uL Hgb (11.2-15.7) g/dL Hct (36.0-46.0) % MCV (80-95) fL MCH (27.0-33.0) pg MCHC (32.0-36.0) % RDW (11.7-14.6) % Plt Count (130-400) 10^3/uL MPV (8.0-11.0) fL Immature Gran % Neutrophils % Lymphocytes % Monocytes % Eosinophils % Basophils % Nucleated RBC % (0.0-0.3) % Absolute Neutrophils (1.2-6.7) 10^3/uL Absolute Lymphocytes (1.2-3.4) 10^3/uL Absolute Monocytes (0.1-0.8) 10^3/uL Absolute Eosinophils (0.0-0.7) 10^3/uL Absolute Basophils (0.0-0.2) 10^3/uL APTT (21.5-31.9) sec Cancelled ABG Sample Site ABG pH (7.35-7.45) ABG pCO2 (35-45) mmHg ABG pO2 (80-105) mmHg ABG HCO3 (22-26) mmol/L ABG Total CO2 (23-27) mmol/L ABG O2 Saturation (95-98) % ABG Base Excess (-2-3) mmol/L VBG pH (7.31-7.41) VBG pCO2 (41-51) mmHg VBG pO2 mmHg VBG HCO3 (23-28) mmol/L VBG Total CO2 (24-29) mmol/L VBG O2 Saturation % VBG Base Excess (-2-3) mmol/L VBG Lactate (0.6-1.4) mmol/L FiO2 % Sodium (136-145) mmol/L 140 Potassium (3.5-5.1) mmol/L 4.0 Chloride (98-107) mmol/L 103 Carbon Dioxide (21.0-32.0) mmol/L 29.7 Anion Gap (3-11) mmol/L 7.3 BUN (7-18) mg/dL 22 H Creatinine (0.55-1.02) mg/dL 0.9 Est GFR (CKD-EPI 2020) (mL/min/1.73m2) 65.84 Glucose (74-106) mg/dL 78 Calcium (8.5-10.1) mg/dL 10.0 Magnesium (1.8-2.4) mg/dL 1.7 L Iron (50-170) ug/dL TIBC (250-450) ug/dL Transferrin % Sat (15-50) % Ferritin (8-252) ng/mL Total Bilirubin (0.2-1.0) mg/dL 0.2 Conjugated Bilirubin (0.0-0.2) mg/dL 0.1 AST (15-37) U/L 44 H ALT (14-59) U/L 56 Alkaline Phosphatase (46-116) U/L 40 L Troponin I (<or=60) ng/L NT-Pro-B Natriuret Pep (<300) pg/mL Total Protein (6.4-8.2) g/dL 5.7 L Albumin (3.4-5.0) g/dL 2.7 L Vitamin B12 (193-986) pg/mL Folate (8.6-20.0) ng/mL TSH (0.36-3.74) uIU/mL 5.06 H Urine Color (Yellow) Urine Clarity (Clear) Urine pH (5-8) Ur Specific [place] (1.005-1.025) Urine Protein (Negative) mg/dL Urine Ketones (Negative) mg/dL Urine Blood (Negative) Urine Nitrite (Negative) Urine Bilirubin (Negative) Urine Urobilinogen (Up to 0.2) mg/dL Ur Leukocyte Esterase (Negative) Urine RBC (0-2) HPF Urine WBC (0-5) HPF Ur Epithelial Cells (Negative) HPF Urine Crystals (Negative) HPF Urine Bacteria (Negative) HPF Urine Casts (Negative) LPF Urine Mucus (Negative) Ur Culture Indicated? Urine Glucose (Negative) mg/dL COVID-19 Source SARS-CoV-2 (PCR) (Negative) Influenza Type A (PCR) (Negative) Influenza Type B (PCR) (Negative) RSV (PCR) (Negative) Add-On Test Request Range/Units 07/10/23 07/11/23 07/11/23 05:55 05:16 05:16 WBC (4.4-10.8) 10^3/uL 10.95 H RBC (3.93-5.22) 10^6/uL 3.26 L Hgb (11.2-15.7) g/dL 9.8 L Hct (36.0-46.0) % 31.0 L MCV (80-95) fL 95 MCH (27.0-33.0) pg 30.1 MCHC (32.0-36.0) % 31.6 L RDW (11.7-14.6) % 12.9 Plt Count (130-400) 10^3/uL 313 MPV (8.0-11.0) fL 9.6 Immature Gran % 1.1 Neutrophils % 59.6 Lymphocytes % 29.7 Monocytes % 8.7 Eosinophils % 0.6 Basophils % 0.3 Nucleated RBC % (0.0-0.3) % 0.2 Absolute Neutrophils (1.2-6.7) 10^3/uL 6.53 Absolute Lymphocytes (1.2-3.4) 10^3/uL 3.25 Absolute Monocytes (0.1-0.8) 10^3/uL 0.95 H Absolute Eosinophils (0.0-0.7) 10^3/uL 0.07 Absolute Basophils (0.0-0.2) 10^3/uL 0.03 APTT (21.5-31.9) sec ABG Sample Site ABG pH (7.35-7.45) ABG pCO2 (35-45) mmHg ABG pO2 (80-105) mmHg ABG HCO3 (22-26) mmol/L ABG Total CO2 (23-27) mmol/L ABG O2 Saturation (95-98) % ABG Base Excess (-2-3) mmol/L VBG pH (7.31-7.41) VBG pCO2 (41-51) mmHg VBG pO2 mmHg VBG HCO3 (23-28) mmol/L VBG Total CO2 (24-29) mmol/L VBG O2 Saturation % VBG Base Excess (-2-3) mmol/L VBG Lactate (0.6-1.4) mmol/L FiO2 % Sodium (136-145) mmol/L Potassium (3.5-5.1) mmol/L Chloride (98-107) mmol/L Carbon Dioxide (21.0-32.0) mmol/L Anion Gap (3-11) mmol/L BUN (7-18) mg/dL Creatinine (0.55-1.02) mg/dL Est GFR (CKD-EPI 2020) (mL/min/1.73m2) Glucose (74-106) mg/dL Calcium (8.5-10.1) mg/dL Magnesium (1.8-2.4) mg/dL Iron (50-170) ug/dL 47 L TIBC (250-450) ug/dL 262 Transferrin % Sat (15-50) % 18 Ferritin (8-252) ng/mL 134 Total Bilirubin (0.2-1.0) mg/dL Conjugated Bilirubin (0.0-0.2) mg/dL AST (15-37) U/L ALT (14-59) U/L Alkaline Phosphatase (46-116) U/L Troponin I (<or=60) ng/L NT-Pro-B Natriuret Pep (<300) pg/mL Total Protein (6.4-8.2) g/dL Albumin (3.4-5.0) g/dL Vitamin B12 (193-986) pg/mL 430 Folate (8.6-20.0) ng/mL 13.4 TSH (0.36-3.74) uIU/mL Urine Color (Yellow) Urine Clarity (Clear) Urine pH (5-8) Ur Specific [place] (1.005-1.025) Urine Protein (Negative) mg/dL Urine Ketones (Negative) mg/dL Urine Blood (Negative) Urine Nitrite (Negative) Urine Bilirubin (Negative) Urine Urobilinogen (Up to 0.2) mg/dL Ur Leukocyte Esterase (Negative) Urine RBC (0-2) HPF Urine WBC (0-5) HPF Ur Epithelial Cells (Negative) HPF Urine Crystals (Negative) HPF Urine Bacteria (Negative) HPF Urine Casts (Negative) LPF Urine Mucus (Negative) Ur Culture Indicated? Urine Glucose (Negative) mg/dL COVID-19 Source SARS-CoV-2 (PCR) (Negative) Influenza Type A (PCR) (Negative) Influenza Type B (PCR) (Negative) RSV (PCR) (Negative) Add-On Test Request Range/Units 07/11/23 07/11/23 05:16 05:16 WBC (4.4-10.8) 10^3/uL 9.01 RBC (3.93-5.22) 10^6/uL 3.27 L Hgb (11.2-15.7) g/dL 9.9 L Hct (36.0-46.0) % 31.1 L MCV (80-95) fL 95 MCH (27.0-33.0) pg 30.3 MCHC (32.0-36.0) % 31.8 L RDW (11.7-14.6) % 13.1 Plt Count (130-400) 10^3/uL 323 MPV (8.0-11.0) fL 9.6 Immature Gran % 1.1 Neutrophils % 59.2 Lymphocytes % 29.3 Monocytes % 8.9 Eosinophils % 1.2 Basophils % 0.3 Nucleated RBC % (0.0-0.3) % 0.0 Absolute Neutrophils (1.2-6.7) 10^3/uL 5.33 Absolute Lymphocytes (1.2-3.4) 10^3/uL 2.64 Absolute Monocytes (0.1-0.8) 10^3/uL 0.80 Absolute Eosinophils (0.0-0.7) 10^3/uL 0.11 Absolute Basophils (0.0-0.2) 10^3/uL 0.03 APTT (21.5-31.9) sec ABG Sample Site ABG pH (7.35-7.45) ABG pCO2 (35-45) mmHg ABG pO2 (80-105) mmHg ABG HCO3 (22-26) mmol/L ABG Total CO2 (23-27) mmol/L ABG O2 Saturation (95-98) % ABG Base Excess (-2-3) mmol/L VBG pH (7.31-7.41) VBG pCO2 (41-51) mmHg VBG pO2 mmHg VBG HCO3 (23-28) mmol/L VBG Total CO2 (24-29) mmol/L VBG O2 Saturation % VBG Base Excess (-2-3) mmol/L VBG Lactate (0.6-1.4) mmol/L FiO2 % Sodium (136-145) mmol/L 140 Potassium (3.5-5.1) mmol/L 4.4 Chloride (98-107) mmol/L 102 Carbon Dioxide (21.0-32.0) mmol/L 31.2 Anion Gap (3-11) mmol/L 6.8 BUN (7-18) mg/dL 23 H Creatinine (0.55-1.02) mg/dL 0.9 Est GFR (CKD-EPI 2020) (mL/min/1.73m2) 65.84 Glucose (74-106) mg/dL 83 Calcium (8.5-10.1) mg/dL 9.2 Magnesium (1.8-2.4) mg/dL 2.1 Iron (50-170) ug/dL TIBC (250-450) ug/dL Transferrin % Sat (15-50) % Ferritin (8-252) ng/mL Total Bilirubin (0.2-1.0) mg/dL Conjugated Bilirubin (0.0-0.2) mg/dL AST (15-37) U/L ALT (14-59) U/L Alkaline Phosphatase (46-116) U/L Troponin I (<or=60) ng/L NT-Pro-B Natriuret Pep (<300) pg/mL Total Protein (6.4-8.2) g/dL Albumin (3.4-5.0) g/dL Vitamin B12 (193-986) pg/mL Folate (8.6-20.0) ng/mL TSH (0.36-3.74) uIU/mL Urine Color (Yellow) Urine Clarity (Clear) Urine pH (5-8) Ur Specific [place] (1.005-1.025) Urine Protein (Negative) mg/dL Urine Ketones (Negative) mg/dL Urine Blood (Negative) Urine Nitrite (Negative) Urine Bilirubin (Negative) Urine Urobilinogen (Up to 0.2) mg/dL Ur Leukocyte Esterase (Negative) Urine RBC (0-2) HPF Urine WBC (0-5) HPF Ur Epithelial Cells (Negative) HPF Urine Crystals (Negative) HPF Urine Bacteria (Negative) HPF Urine Casts (Negative) LPF Urine Mucus (Negative) Ur Culture Indicated? Urine Glucose (Negative) mg/dL COVID-19 Source SARS-CoV-2 (PCR) (Negative) Influenza Type A (PCR) (Negative) Influenza Type B (PCR) (Negative) RSV (PCR) (Negative) Add-On Test Request
[2023-07-11] MEDS: Aspirin E.C. 81 MG TABEC PO (09:08)
[2023-07-11] MEDS: guaiFENesin 600 MG TABCR 1200 MG PO ×2 (09:08→20:10)
[2023-07-11] MEDS: predniSONE 20 MG TAB 40 MG PO (09:09)
[2023-07-11] MEDS: Metoprolol CR 50 MG TABCR PO (09:09)
[2023-07-11] MEDS: Pantoprazole 40 MG VIAL IVP (09:55)
[2023-07-11] MEDS: Enoxaparin 40 MG/0.4 ML SYR SC (09:55)
[2023-07-11] MEDS: cefTAZidime 1,000 MG in Normal Saline 100 ML 200 MG IVPB ×2 (09:55→22:16)
[2023-07-11] MEDS: Normal Saline Flush 10 ML SYR IVP ×2 (09:56→22:17)
--- NOTE | 2023-07-11 10:22 | PDOC.CMPRO ---
Date of service: 07/11/23 Time of Service: 10:22 Care Management Progress Note Progress Note Text Progress Note Text: S/O: Marcie was sitting up in her chair eating lunch when CM met with her. Her daughter, Estela, was in the room visiting. Marcie stated that she feels better today, slightly. CM discussed resources with Estela, and will provide caregiver information for her to contact. Marcie was transferred to M/S status, although remains in the ICU, waiting for a bed on M/S to become available. She continues to improve slowly. CM will continue to follow. A: Yojana is a 77 year old female admitted to [facility] on 07/04/23 for COPD. P: Anticipate Yojana will return home once medically cleared, with new orders for HH RN, PT, OT, C [employer] [employer]EL[employer], through [facility]. Her will drive her home via private vehicle. She will follow up with her PCP and discharge plan of care. CM will continue to follow.
[2023-07-11 10:28] LABS: Bilirubin Negative (Negative); Blood Large (Negative); Clarity Sl Cloudy (Clear); Glucose Negative (Negative); Ketones Trace mg/dL (Negative); Leukocyte Esterase Small (Negative); Nitrite Negative (Negative); Urobilinogen 0.2 mg/dL (Up to 0.2); pH 5.5 (5-8)
[2023-07-11 10:41] LABS: Bacteria Few HPF (Negative); Casts Negative LPF (Negative); Crystals Negative HPF (Negative); Epithelial Cells Many HPF (Negative); Mucus Heavy (Negative); RBC >50 HPF (0-2)
[2023-07-11 10:42] LABS: C & S Indicated? No/Sq. Contamination
--- NOTE | 2023-07-11 14:12 | CHAPLAIN ---
Marcie was visiting with her daughter when I stopped in. Marcie told me she's from [place], but comes down here for the good doctors. I introduced myself and explained my role. Tomorrow is Marcie's birthday, her daughter said. Marcie seemed to really like the prayer shawl I brought for her. I will continue to visit.
--- NOTE | 2023-07-11 14:47 | W.PM.PROGNOT ---
Date of Service Date of service: 07/11/23 Time of Service: 10:30 Assessment and Plan Assessment and plan (1) Acute on chronic respiratory failure with hypoxia and hypercapnia: Status: Acute Assessment and plan: In setting of Acute exacerbation of COPD, bronchiectasis, and achromobacter pneumonia. Continue ceftazidime (day 05/18-14). Continue inhaled and systemic steroids, scheduled nebs, including hypertonic saline, encourage IS/acapella. On mucinex. Encourage BiPAP prn and at night. Dr Masters is working on arranging a Trilogy for home use. Repeat sputum C&S (one done prior shows normal lesvia). (2) COPD exacerbation: Status: Acute Assessment and plan: As above (3) Bronchiectasis with (acute) exacerbation: Status: Acute Assessment and plan: As above (4) Achromobacter pneumonia: Status: Acute Assessment and plan: As above (5) Demand ischemia: Status: Acute Assessment and plan: In setting respiratory failure, PNA/COPD/bronchiectasis exacerbation. Continue asa. Euvolemic today. Treat the respiratory process. Echo 07/06: no wall motion abnormalities, LVEF 55%, RVSP 45 mmHg. (6) Pulmonary hypertension: Status: Acute Assessment and plan: Appears euvolemic today - holding on diuresis. (7) CAD (coronary artery disease): Status: Chronic Assessment and plan: As above (8) ANA ROSA (acute kidney injury): Status: Resolved Assessment and plan: In setting of hypoxia, ?prerenal/cardiorenal component. Resolved. Continue to monitor. (9) Anemia: Status: Chronic Assessment and plan: H/H is actually better today. B12 borderline low - replete. Has not required transfusion on this admission. (10) Hematuria: Status: Acute Assessment and plan: In setting of traumatic insertion, peraza catheter. Peraza d/c'ed 07/09/23. Trace leucocyte esterase - urine C&S w/ NGTD, so not a UTI. (11) DVT prophylaxis: Status: Acute Assessment and plan: SC lovenox (12) Discharge planning issues: Status: Acute Assessment and plan: DNR/DNI PT, palliative care consulted. Transferred to medical surgical floor on 07/10/23. Discussed with Dr Masters. Subjective Subjective Interval history since last seen: Ms Burkett states that she did not sleep well last night. The head strap of the mask was too tight on her head and was giving her a headache, she states. She denies dizziness, CP, states her SOB is near her baseline, denies n/v. Will be tried on AVAPS tonight. Exam Narrative Exam Narrative: General: Elderly female, looks significantly mildly dyspneic, about the same as yesterday, A&Ox3 HEENT: EOMI, MMM Heart: RRR Lungs: Diminished breath sounds B Abdomen: soft, nontender, nondistended Extremities: no edema BLEs, trace pedal pulses Objective Last Vital Signs Temp 37.6 C H 07/11/23 12:50 Pulse 96 H 07/11/23 12:50 Resp 20 07/11/23 12:50 BP 145/62 H 07/11/23 12:50 Pulse Ox 95 07/11/23 12:50 Laboratory Results - last 24 hr 07/11/23 07/11/23 07/11/23 05:16 05:16 05:16 WBC RBC Hgb Hct MCV MCH MCHC RDW Plt Count MPV Immature Gran % Neutrophils % Lymphocytes % Monocytes % Eosinophils % Basophils % Nucleated RBC % Absolute Neutrophils Absolute Lymphocytes Absolute Monocytes Absolute Eosinophils Absolute Basophils Sodium 140 Potassium 4.4 Chloride 102 Carbon Dioxide 31.2 Anion Gap 6.8 BUN 23 H Creatinine 0.9 Est GFR (CKD-EPI 2020) 65.84 Glucose 83 Calcium 9.2 Magnesium 2.1 Iron 47 L TIBC 262 Transferrin % Sat 18 Ferritin 134 Vitamin B12 430 Folate 13.4 Urine Color Urine Clarity Urine pH Ur Specific [place] Urine Protein Urine Ketones Urine Blood Urine Nitrite Urine Bilirubin Urine Urobilinogen Ur Leukocyte Esterase Urine RBC Urine WBC Ur Epithelial Cells Urine Crystals Urine Bacteria Urine Casts Urine Mucus Ur Culture Indicated? Urine Glucose 07/11/23 07/11/23 05:16 09:50 WBC 9.01 RBC 3.27 L Hgb 9.9 L Hct 31.1 L MCV 95 MCH 30.3 MCHC 31.8 L RDW 13.1 Plt Count 323 MPV 9.6 Immature Gran % 1.1 Neutrophils % 59.2 Lymphocytes % 29.3 Monocytes % 8.9 Eosinophils % 1.2 Basophils % 0.3 Nucleated RBC % 0.0 Absolute Neutrophils 5.33 Absolute Lymphocytes 2.64 Absolute Monocytes 0.80 Absolute Eosinophils 0.11 Absolute Basophils 0.03 Sodium Potassium Chloride Carbon Dioxide Anion Gap BUN Creatinine Est GFR (CKD-EPI 2020) Glucose Calcium Magnesium Iron TIBC Transferrin % Sat Ferritin Vitamin B12 Folate Urine Color Yellow Urine Clarity Sl Cloudy Urine pH 5.5 Ur Specific [place] 1.020 Urine Protein 100 H Urine Ketones Trace H Urine Blood Large H Urine Nitrite Negative Urine Bilirubin Negative Urine Urobilinogen 0.2 Ur Leukocyte Esterase Small H Urine RBC >50 H Urine WBC 10-20 H Ur Epithelial Cells Many Urine Crystals Negative Urine Bacteria Few Urine Casts Negative Urine Mucus Heavy Ur Culture Indicated? No/Sq. Contamination Urine Glucose Negative Time Spent with Patient Time Spent with Patient: 25-34 minutes Time was spent: preparing to see the patient(eg.review tests), obtaining and/or reviewing separately otained hiistory, ordering medications,tests, procedures, referring, communicating with other health laboratory animal caretaker, indepentently interpreting results, counseling the patient and care coordination
[2023-07-11] MEDS: Simvastatin 20 MG TAB PO (20:10)
[2023-07-12] VITALS (25 sets, daily range): BP systolic 131–172; BP diastolic 55–87; PULSE 70–125; RESP 7–31; TEMP 35.9–37.6; O2SAT 92–100
[2023-07-12] MEDS: Normal Saline Flush 10 ML SYR IVP ×3 (05:20→22:33)
[2023-07-12 07:28] LABS: Abs Immature Grans 0.11 10^3/uL (0.0-0.06); Absolute Basophil Count 0.01 10^3/uL (0.0-0.2); Absolute Lymphocyte Count 2.51 10^3/uL (1.2-3.4); Absolute Monocyte Count 0.92 10^3/uL (0.1-0.8); Absolute Neutrophil Count 6.79 10^3/uL (1.2-6.7); Basophils % 0.1; HCT 31.1 % (36.0-46.0); Immature Grans % 1.1; MCH 30.8 pg (27.0-33.0); MCHC 32.2 % (32.0-36.0); MCV 96 fL (80-95); MPV 10.3 fL (8.0-11.0); Monocytes % 8.8; Platelet Count 310 10^3/uL (130-400); RBC 3.25 10^6/uL (3.93-5.22); RDW 13.2 % (11.7-14.6); RDW-SD 45.3 fL; WBC 10.44 10^3/uL (4.4-10.8)
[2023-07-12 07:43] LABS: Anion Gap 7.1 mmol/L (3-11); BUN 28 mg/dL (7-18); CO2 29.9 mmol/L (21.0-32.0); CREATININE 0.9 mg/dL (0.55-1.02); Calcium 9.7 mg/dL (8.5-10.1); Chloride 103 mmol/L (98-107); Estimated GFR 65.44 (mL/min/1.73m2); Glucose 84 mg/dL (74-106); Potassium 4.1 mmol/L (3.5-5.1); Sodium 140 mmol/L (136-145)
[2023-07-12] MEDS: Albuterol 2.5 MG/3 ML INH SOLN VIAL UPD ×4 (08:07→19:54)
[2023-07-12] MEDS: Tiotropium/Olodaterol 10 PUFF INHALER 2 PUFF IH (08:07)
[2023-07-12] MEDS: Budesonide 0.5 MG/2 ML UPD VIAL UPD ×2 (08:12→19:54)
[2023-07-12] MEDS: Aspirin E.C. 81 MG TABEC PO (09:18)
[2023-07-12] MEDS: guaiFENesin 600 MG TABCR 1200 MG PO ×2 (09:18→19:13)
[2023-07-12] MEDS: Cyanocobalamin 500 MCG TAB 1000 MCG PO (09:18)
[2023-07-12] MEDS: predniSONE 20 MG TAB 40 MG PO (09:18)
[2023-07-12] MEDS: Metoprolol CR 50 MG TABCR PO (09:19)
--- NOTE | 2023-07-12 09:23 | PGE_ITS ---
Date of Service Date of service: 07/12/23 Time of Service: Assessment and Plan Assessment and plan (1) Acute on chronic respiratory failure with hypoxia and hypercapnia: Status: Acute Assessment and plan: In setting of Acute exacerbation of COPD, bronchiectasis, and achromobacter pneumonia. Continue ceftazidime (day /-14). Continue inhaled and systemic steroids, sc heduled nebs, including hypertonic saline, encourage IS/acapella. On mucinex. She is doing better. Did well with AVAPS overnight. Dr Masters is working on arranging a Trilogy for home use - I will try to find out the ETA on the machine/approval. Repeat sputum C&S (one done prior shows normal lesvia). (2) Dysuria: Status: Acute Assessment and plan: Recheck UA. Feeling better, so I think that she does have a UTI, but it is responding to antibiotics she is already on. I am not changing abx today. (3) COPD exacerbation: Status: Acute Assessment and plan: As above (4) Bronchiectasis with (acute) exacerbation: Status: Acute Assessment and plan: As above (5) Achromobacter pneumonia: Status: Acute Assessment and plan: As above (6) Demand ischemia: Status: Acute Assessment and plan: In setting respiratory failure, PNA/COPD/bronchiectasis exacerbation. Continue asa. Euvolemic today. Treat the respiratory process. Echo 07/06: no wall motion abnormalities, LVEF 55%, RVSP 45 mmHg. (7) Pulmonary hypertension: Status: Acute Assessment and plan: Appears euvolemic today - holding on diuresis. (8) CAD (coronary artery disease): Status: Chronic Assessment and plan: As above (9) ANA ROSA (acute kidney injury): Status: Resolved Assessment and plan: In setting of hypoxia, ?prerenal/cardiorenal component. Resolved. Continue to monitor. (10) Anemia: Status: Chronic Assessment and plan: Multifactorial. Suspect anemia of chronic disease as well as B12 deficiency. I do not think that the hematuria is contributing. H/H is actually better today. replete b12. Has not required transfusion on this admission. Heme negative. (11) Hematuria: Status: Acute Assessment and plan: In setting of traumatic insertion, peraza catheter. Peraza d/c'ed 07/09/23. (12) DVT prophylaxis: Status: Acute Assessment and plan: SC lovenox (13) Discharge planning issues: Status: Acute Assessment and plan: DNR/DNI PT, palliative care consulted. Transferred to medical surgical floor on 07/10/23. Awaiting AVAPS machine. Subjective Subjective Interval history since last seen: Today is Ms Burkett's 78th birthday! Ms Burkett states that she is feeling better. Her breathing is not bothering her today. She is on 1L of O2 at rest and 2L with activity. She tolerated sleeping with AVAPS and the adjustment of her mask much better last night. Her dysuria/pelvic discomfort is much better also. No dizziness, CP, or nausea. Would like to shower today. Exam Narrative Exam Narrative: General: Elderly female, looks significantly better, speaking in full sentences, only minimally dyspneic, A&Ox3 HEENT: EOMI, MMM Heart: RRR Lungs: Expiratory rhonchi B Abdomen: soft, nontender, nondistended Extremities: no edema BLEs, trace pedal pulses Objective Last Vital Signs Temp 37.4 C 07/12/23 08:08 Pulse 86 07/12/23 08:06 Resp 31 H 07/12/23 08:06 BP 161/77 H 07/12/23 08:06 Pulse Ox 95 07/12/23 08:12 Laboratory Results - last 24 hr 07/11/23 07/12/23 07/12/23 09:50 05:30 05:30 WBC 10.44 RBC 3.25 L Hgb 10.0 L Hct 31.1 L MCV 96 H MCH 30.8 MCHC 32.2 RDW 13.2 Plt Count 310 MPV 10.3 Immature Gran % 1.1 Neutrophils % 65.0 Lymphocytes % 24.0 Monocytes % 8.8 Eosinophils % 1.0 Basophils % 0.1 Nucleated RBC % 0.0 Absolute Neutrophils 6.79 H Absolute Lymphocytes 2.51 Absolute Monocytes 0.92 H Absolute Eosinophils 0.10 Absolute Basophils 0.01 Sodium 140 Potassium 4.1 Chloride 103 Carbon Dioxide 29.9 Anion Gap 7.1 BUN 28 H Creatinine 0.9 Est GFR (CKD-EPI 2020) 65.44 Glucose 84 Calcium 9.7 Magnesium 2.0 Urine Color Yellow Urine Clarity Sl Cloudy Urine pH 5.5 Ur Specific [place] 1.020 Urine Protein 100 H Urine Ketones Trace H Urine Blood Large H Urine Nitrite Negative Urine Bilirubin Negative Urine Urobilinogen 0.2 Ur Leukocyte Esterase Small H Urine RBC >50 H Urine WBC 10-20 H Ur Epithelial Cells Many Urine Crystals Negative Urine Bacteria Few Urine Casts Negative Urine Mucus Heavy Ur Culture Indicated? No/Sq. Contamination Urine Glucose Negative Time Spent with Patient Time Spent with Patient: 25-34 minutes Time was spent: preparing to see the patient(eg.review tests), obtaining and/or reviewing separately otained hiistory, ordering medications,tests, procedures, referring, communicating with other health manager care management, indepentently interpreting results, counseling the patient and care coordination
--- NOTE | 2023-07-12 09:36 | PDOC.CMPRO ---
Date of service: 07/12/23 Time of Service: 09:36 Care Management Progress Note Progress Note Text Progress Note Text: S/O: Marcie was lying in bed when CM met with her. She stated that she is tired today, as she has been very busy. Today is her birthday, and she has had balloons and cake delivered. She reported that she is very happy with the care she is receiving at [facility], but she is anxious to return home. Per MD, Dr. Sanabria, Pulmonology, is ordering Marcie a Trilogy machine. Both providers agree that this should be delivered to her home prior to her discharge. The order is currently being reviewed by insurance, and may ready by Monday, if her insurance approves it in a timely manner. CM will continue to follow. A: Yojana is a 77 year old female admitted to [facility] on 07/04/23 for COPD. P: Anticipate Yojana will return home once medically cleared, with new orders for HH RN, PT, OT, PROMOTIONAL MARKETING ANALYST, through [facility]. Her will drive her home via private vehicle. She will follow up with her PCP and discharge plan of care. CM will continue to follow.
[2023-07-12] MEDS: cefTAZidime 1,000 MG in Normal Saline 100 ML 200 MG IVPB ×2 (09:45→21:49)
[2023-07-12 09:46] LABS: Bilirubin Negative (Negative); Blood Large (Negative); Clarity Clear (Clear); Glucose Negative (Negative); Ketones Negative (Negative); Leukocyte Esterase Small (Negative); Nitrite Negative (Negative); Urobilinogen 0.2 mg/dL (Up to 0.2)
[2023-07-12] MEDS: Enoxaparin 40 MG/0.4 ML SYR SC (09:46)
[2023-07-12] MEDS: Pantoprazole 40 MG VIAL IVP (09:47)
[2023-07-12 09:55] LABS: Bacteria Negative HPF (Negative); C & S Indicated? C&S Done As Ordered; Casts 3-5 Hyaline LPF (Negative); Crystals Negative HPF (Negative); Epithelial Cells Moderate HPF (Negative); Mucus Negative (Negative); RBC >50 HPF (0-2)
--- NOTE | 2023-07-12 10:22 | RESPIRATORY ---
RT Assessment Start: 07/05/23 14:05 Freq: .q shift and prn Status: Active Protocol: Document 07/12/23 08:17 [email or web address] (Rec: 07/12/23 08:24 [id number]) RT Assessment Pulmonary History Pulmonary History COPD Smoking History Smoking/Tobacco Use Status Former Tobacco Use Quit Date 10/09/09 Tobacco Type cigarettes Packs per Day 1 Years smoked 30 OXYGEN HISTORY: Supplemental O2 At Rest 1 With Exertion 1 CPAP Can use home machine No BIPAP Can you home machine No Trilogy/AVAPS Can use home machine No DME/Compliance DME Imogene Current Respiratory Symptoms Current Respiratory Symptoms Cough,Sputum production Activity Activity Level Limited activity -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
--- NOTE | 2023-07-12 11:54 | PT.INNT ---
Date of service: 07/12/23 Time of Service: 09:25 PT Notes Visit Reasons: COPD Patient refused PT at 9:25 and 10:34, suggested this therapist come back in the afternoon. INÉS Amor aware. Will check back in the afternoon.
[2023-07-12 16:38] LABS: BE 5 mmol/L (-2-3); HCO3 29 mmol/L (22-26); pCO2 43 mmHg (35-45); pH 7.44 (7.35-7.45); pO2 74 mmHg (80-105); sO2 95 % (95-98); tCO2 27 mmol/L (23-27)
[2023-07-12 16:40] LABS: FIO2L 1 L; Site Right Radial
--- NOTE | 2023-07-12 16:53 | PT.INTREAT ---
Date of service: 07/12/23 Time of Service: 16:37 PT Notes Visit Reasons: COPD Inpatient Physical Therapy Treatment Note [facility] Date: 07/12/23 PRECAUTIONS: Fall, standard, activity as tolerated. SUBJECTIVE: Patient says What do you want? with a tone of half-kidding. Informs nurse that every time she opens her eyes, this therapist is staring at her. OBJECTIVE: Supine in bed, eventually agrees to therapy.? PAIN: none reported. VITALS: monitored by nursing staff. O2 drops to 85% moving supine to sit, up to 96% with standing and moving. ? Therapeutic Activities ([id number]): Direct one-on-one instruction in dynamic activities to improve functional performance. ? BED MOBILITY/TRANSFERS? Rolling L/R: independent Supine-sit: ?independent with extended time. ? Sit-supine: not assessed ? Sit-stand: SBA ? Stand-sit: SBA? Bed-Chair: SBA? Chair-bed: SBA Provided skilled cues and instruction on performance and technique throughout. ASSESSMENT:? Patient tolerates therapy well, no shortness of breath at end of treatment. Very excited to go home, hoping to leave on Monday. PLAN: Continue global strengthening per plan of care until patient is medically cleared for discharge. TREATMENT CODE/TIME: 15 minutes beginning at 16:37
[2023-07-12] MEDS: Simvastatin 20 MG TAB PO (19:14)
[2023-07-12] MEDS: LORazepam 0.5 MG TAB PO (22:33)
[2023-07-13] VITALS (20 sets, daily range): BP systolic 152–178; BP diastolic 64–93; PULSE 80–100; RESP 7–26; TEMP 36.7–37; O2SAT 91–100
[2023-07-13 06:18] LABS: BE 8 mmol/L (-2-3); HCO3 32 mmol/L (22-26); pCO2 46 mmHg (35-45); pH 7.45 (7.35-7.45); pO2 101 mmHg (80-105); sO2 98 % (95-98); tCO2 30 mmol/L (23-27)
[2023-07-13 06:19] LABS: FIO2L 2 L; Site Right Radial
[2023-07-13 07:00] LABS: Abs Immature Grans 0.05 10^3/uL (0.0-0.06); Absolute Basophil Count 0.02 10^3/uL (0.0-0.2); Absolute Eosinophil Count 0.13 10^3/uL (0.0-0.7); Absolute Lymphocyte Count 2.38 10^3/uL (1.2-3.4); Absolute Monocyte Count 0.82 10^3/uL (0.1-0.8); Absolute Neutrophil Count 4.94 10^3/uL (1.2-6.7); Basophils % 0.2; Eosinophils % 1.6; HCT 29.6 % (36.0-46.0); HGB 9.2 g/dL (11.2-15.7); Immature Grans % 0.6; Lymphocytes % 28.5; MCHC 31.1 % (32.0-36.0); MCV 96 fL (80-95); MPV 9.3 fL (8.0-11.0); Monocytes % 9.8; Neutrophils % 59.3; Platelet Count 296 10^3/uL (130-400); RBC 3.07 10^6/uL (3.93-5.22); RDW 13.4 % (11.7-14.6); RDW-SD 46.7 fL; WBC 8.34 10^3/uL (4.4-10.8)
[2023-07-13 07:13] LABS: Anion Gap 8.3 mmol/L (3-11); BUN 22 mg/dL (7-18); CO2 30.7 mmol/L (21.0-32.0); CREATININE 0.9 mg/dL (0.55-1.02); Calcium 9.5 mg/dL (8.5-10.1); Chloride 99 mmol/L (98-107); Estimated GFR 65.44 (mL/min/1.73m2); Glucose 88 mg/dL (74-106); Magnesium 1.8 mg/dL (1.8-2.4); Potassium 3.6 mmol/L (3.5-5.1); Sodium 138 mmol/L (136-145)
[2023-07-13] MEDS: Albuterol 2.5 MG/3 ML INH SOLN VIAL UPD ×2 (07:55→12:26)
[2023-07-13] MEDS: Tiotropium/Olodaterol 10 PUFF INHALER 2 PUFF IH (07:55)
[2023-07-13] MEDS: Budesonide 0.5 MG/2 ML UPD VIAL UPD (07:55)
[2023-07-13] MEDS: Aspirin E.C. 81 MG TABEC PO (08:11)
[2023-07-13] MEDS: Metoprolol CR 50 MG TABCR PO (08:12)
[2023-07-13] MEDS: predniSONE 20 MG TAB 40 MG PO (08:12)
[2023-07-13] MEDS: Cyanocobalamin 500 MCG TAB 1000 MCG PO (08:12)
[2023-07-13] MEDS: guaiFENesin 600 MG TABCR 1200 MG PO (08:12)
--- NOTE | 2023-07-13 09:43 | PTTR_ITS ---
Date of service: 07/13/23 Time of Service: 09:33 PT Notes Visit Reasons: COPD Inpatient Physical Therapy Treatment Note [facility] Date: 07/13/23 PRECAUTIONS: Fall, standard, activity as tolerated. SUBJECTIVE: Patient reports she is going home today, will have hospice care at home. Very eager to go home. Reports being somewhat worried about her , as it's tough to be alone. OBJECTIVE: Supine in bed, agreeable to therapy. ? PAIN: none reported VITALS: monitored by nursing staff.? BED MOBILITY/TRANSFERS? Rolling L/R: independent Supine-sit: independent with extra time ? Sit-supine: independent ? Sit-stand: independent ? Stand-sit: independent ? Bed-Chair: independent ? Chair-bed: independent ? Therapeutic Exercises ([id number]): Direct one-on-one instruction in therapeutic exercises to develop strength, endurance, range of motion and flexibility. ? Exercises: HEP established as follows: Access Code: [email or web address] URL: [email or web address] Date: 07/13/2023 Prepared by: Lizz Basilio Exercises - First Rib Mobilization with Strap - 1 x daily - 7 x weekly - 3 sets - 10 reps - Seated Sidebending - 1 x daily - 7 x weekly - 3 sets - 10 reps - Seated Trunk Rotation - Arms Crossed - 1 x daily - 7 x weekly - 3 sets - 10 reps - Tandem Stance in Corner - 1 x daily - 7 x weekly - 3 sets - 10 reps - Sit to Stand with Counter Support - 1 x daily - 7 x weekly - 3 sets - 10 reps Reviewed with patient, each exercise demonstrated and patient gives return demonstration. ASSESSMENT:?Patient tolerates therapy well, not short of breath, no c/o pain. Voices understanding and agreement with all exercises. PLAN: Continue global strengthening per plan of care until patient is medically cleared for discharge. TREATMENT CODE/TIME: 17 minutes beginning at 9:33
--- NOTE | 2023-07-13 10:09 | PDOC.CMPRO ---
Date of service: 07/13/23 Time of Service: 10:09 Care Management Progress Note Progress Note Text Progress Note Text: S/O: A: Yojana is a 77 year old female admitted to [facility] on 07/04/23 for COPD. P: Anticipate Yojana will return home once medically cleared, with new orders for HH RN, PT, OT, CLINICAL SOCIAL WORKER, through [facility]. Her will drive her home via private vehicle. She will follow up with her PCP and discharge plan of care. CM will continue to follow.
[2023-07-13] MEDS: cefTAZidime 1,000 MG in Normal Saline 100 ML 200 MG IVPB (10:36)
[2023-07-13] MEDS: Pantoprazole 40 MG TABCR PO (10:37)
[2023-07-13] MEDS: Enoxaparin 40 MG/0.4 ML SYR SC (10:37)
--- NOTE | 2023-07-13 11:46 | DSE_ITS ---
Date of service: 07/13/23 Time of Service: 11:46 DS: Diagnosis Discharge Diagnosis (1) Acute on chronic respiratory failure with hypoxia and hypercapnia: Status: Acute (2) Achromobacter pneumonia: Status: Acute (3) COPD exacerbation: Status: Acute (4) Bronchiectasis with (acute) exacerbation: Status: Acute (5) Demand ischemia: Status: Acute (6) Dysuria: Status: Resolved Asessment and Plan: UTI ruled out (7) Pulmonary hypertension: Status: Acute (8) CAD (coronary artery disease): Status: Chronic (9) ANA ROSA (acute kidney injury): Status: Resolved (10) Anemia: Status: Chronic (11) Hematuria: Status: Resolved Asessment and Plan: Traumatic from peraza catheter insertion. Discharge Plan Disposition Patient Disposition: Home W/Home Health Services Condition: Improving Discharge Details Reason For Visit: COPD Admit Date/Time: 07/04/23 21:02 Admit Provider: Nilesh Johns Attending Provider: Nilesh Johns Primary Care Provider: JULIA BILLY Hospital Course Hospital Course: Ms Burkett is a 78 year old female with PMHx of chronic hypoxic respiratory failure, normally on 2-2.5 L of O2 by NC, as well as h/o COPD, bronchiectasis, sputum culture positive for Achromobacter xylosoxidans (resistant to tobramycin/amikacin, sensitive to ceftazidime), CAD, pulmonary hypertension, who was a patient on [facility] hospitalist service from 07/04/23 until 07/13/23, having been sent to [facility] ED from the pulmonology office for worsening shortness of breath and failing outpatient course of antibiotics (bactrim and levofloxacin) for COPD/bronchiectasis exacerbation. The patient was on her baseline 2L of O2 by NC in the ED with evidence of hypercapnia by VBG with pH of 7.25 and pCO2 of 65. She was placed on BiPAP, initiated on ceftazidime, steroids, scheduled and prn nebs, hypertonic saline nebs. An echo was obtained in workup of her pulmonary hypertension. The patient was worse on the morning of 07/07/23 and was transferred to the ICU. She required initiation of the precedex gtt to help her tolerate BiPAP due to anxiety. She did have a presumed type 2 NSTEMI in setting of her worsened respiratory failure, for which she was treated with aspirin and heparin gtt x 48 hrs. For her slight component of fluid overload, she was diuresed. Her condition continued to steadily improve. We were able to wean her precedex gtt. She was transferred out of the ICU on 07/10/23, continuing to use BiPAP HS and prn. She did not qualify for AVAPS ventilator by ABG criteria. She has received 10 days of IV ceftazidime and feels back to her baseline. She is medically stable for discharge home today on 1 L of O2 at rest and with activity. On discharge, her oxygen prescription will be 1-2 L of O2. She is going home on a prednisone taper, stiolto, pulmicort, hypertonic saline, and albuterol nebs. The patient did have hematuria on this admission. She ruled out for a UTI and had a negative renal ultrasound. It is felt to have been due to a traumatic peraza catheter insertion. The peraza catheter was removed, and the patient passed a voiding trial. She should follow up with her PCP and Pulmonology in 1-2 weeks. The patient should also follow up with palliative care, whom she had seen on this admission. Care for patient as well as completion of her discharge summary on day of discharge took 60 minutes. Home Meds and New Rx's Prescriptions: New melatonin 3 mg Tablet 6 mg PO HS PRN PRN (Reason: Insomnia) Qty: 30 0RF aspirin 81 mg Tablet,Delayed Release (Dr/Ec) 81 mg PO DAILY Qty: 30 0RF lorazepam 0.5 mg Tablet 0.5 mg PO QID PRN PRNQty: 10 0RF pantoprazole 40 mg Tablet,Delayed Release (Dr/Ec) 40 mg PO DAILY@0730 Qty: 30 0RF guaifenesin [Mucus Relief ER] 600 mg Tablet Extended Release 12hr 1,200 mg PO BID Qty: 120 0RF cyanocobalamin (vitamin B-12) 1,000 mcg tablet 1,000 mcg PO DAILY Qty: 30 0RF prednisone 10 mg tablet 10 mg PO DIRECTED Qty: 20 0RF Rx Instructions: 30 mg PO daily x 3 days, 20 mg PO daily x 3 days, 10 mg PO daily x 3 days, 5 mg PO daily x 3 days, then stop. Continued albuterol sulfate 90 mcg/actuation HFA aerosol inhaler 2 puff inhalation Q6H PRN sodium chloride 7 % solution for nebulization 4 ml inhalation BID 30 Days Qty: 240 12RF budesonide 0.5 mg/2 mL suspension for nebulization 0.5 mg inhalation BID Qty: 60 12RF sodium chloride 0.9 % (flush) Syringe 5 ml IV DAILY 90 Days Qty: 500 0RF Anoro Ellipta 62.5-25 mcg/actuation blister with device 1 inh inhalation DAILY guaifenesin 100 mg/5 mL syrup 200 mg PO DIRECTED PRN metoprolol succinate 50 mg tablet extended release 24 hr 50 mg PO DAILY ramipril 5 mg capsule 5 mg PO DAILY simvastatin 20 mg tablet 20 mg PO QHS albuterol sulfate 2.5 mg /3 mL (0.083 %) solution for nebulization 2.5 mg inhalation QID PRN (Reason: shortness of breath or wheezing) Qty: 180 4RF Discontinued ceftazidime 1 gram recon soln 500 mg IV Q12H 30 Days Qty: 25 2RF cefuroxime axetil 500 mg tablet 500 mg PO Q12H sulfamethoxazole-trimethoprim [Bactrim DS] 800-160 mg tablet 1 tab PO BID Qty: 20 0RF cefdinir 300 mg capsule 300 mg PO BID Qty: 20 0RF No Action (DME) blunt needle, disposable 18 x 1 1/2 needle See Rx Instructions .Route Qty: 100 0RF Rx Instructions: As directed Discharge Instructions Instructions: COPD (Chronic Obstructive Pulmonary Disease) (DC), Bacterial Pneu monia (DC) Additional Instructions: Use 1-2 L of O2 by NC. Return to the hospital with any fever, bleeding, chest pain, or worsening shortness of breath. Care Plan Goals: Home with home health RN, PT. Referrals: JULIA BILLY NP [Primary Care Provider] - Tracey Marvin PA [PHYSICIANS BASEBALL COACH] - Activity:: Activity as Tolerated Equipment/Supplies:: Oxygen (L/min Below) Diet:: As Tolerated Discharge Orders Discharge Orders: Discharge Order (Routine); Ordered 07/13/23 Ordered By: Ninoska Kaye DS: Summary Time Spent with Patient providing and/or coordinating discharge services: Greater than 30 minutes Status at Discharge Functional status at discharge: uses cane/walker Overall status at discharge: patient is back to baseline Mental Status: mental status grossly normal Speech and Movement: speech and movement normal Mood: congruent mood Affect: normal affect Exam Narrative Exam Narrative: General: Elderly female, looks even better, speaking in full sentences, A&Ox3, on 1L of O2 by NC HEENT: EOMI, MMM Heart: RRR Lungs: CTAB, very minimal abdominal breathing but only when laying flat Abdomen: soft, nontender, nondistended Extremities: no edema BLEs, trace pedal pulses Psych Mental Status: mental status grossly normal Speech and Movement: speech and movement normal Mood: congruent mood Affect: normal affect DS: Data Vitals/I&O Vitals and I&O: Vital Signs Temperature 37 C 07/13/23 08:00 Temperature Source Temporal Artery Scan 07/13/23 08:00 Pulse 87 07/13/23 08:09 Pulse Rhythm Regular 07/13/23 08:00 Pulse 89 07/12/23 08:06 Respiratory Rate 22 07/13/23 08:09 Respiratory Effort Non-Labored 07/13/23 08:00 Respiratory Depth Normal 07/13/23 08:00 Respiratory Pattern Tachypnea 07/13/23 08:00 Blood Pressure 170/64 H 07/13/23 08:03 Blood Pressure Mean 95 07/13/23 08:03 Blood Pressure Position Supine 07/10/23 14:03 Pulse Oximetry 100 07/13/23 08:03 Oxygen Delivery Method Nasal Cannula 07/13/23 08:01 Oxygen Flow Rate 1 07/13/23 08:01 Fraction of Inspired Oxygen (FIO2) 21 07/12/23 08:12 Pain Level 0 07/13/23 08:00 Comment After return to bed [place] [facility] 07/13/23 04:09 Intake & Output 07/12/23 07/12/23 07/13/23 11:59 23:59 11:59 Intake Total 460 / 1140.000 680.000 / 1140.000 376.667 / 376.667 Output Total 200 / 675 475 / 675 400 / 400 Balance 260 / 465.000 205.000 / 465.000 -23.333 / -23.333 Weight 57.3 kg 57 kg Intake: IV 100 / 300.000 200.000 / 300.000 196.667 / 196.667 Oral 360 / 840 480 / 840 180 / 180 Output: Urine 200 / 675 475 / 675 400 / 400 Other: Urine Color Yellow Yellow Yellow Urine Appearance Clear Clear Sediment Urine Odor None None Strong Voiding Methods Bedside Commode Bedside Commode Bedside Commode Data Completed and Pending Completed studies during hospitalization [Text1]: CXR 07/04/23: No acute pulmonary findings on this single AP portable view of the chest. Echo 07/06/23: Normal left ventricular wall thickness and chamber size.? Ejection fraction is 55%.? Wall motion is normal Normal right ventricular size and systolic function Both atria are normal in size There is no structural or hemodynamically significant valvular disease Estimated right ventricular systolic pressure is 45 mmHg Trivial pericardial effusion CXR 07/07/23: No acute pulmonary findings. US renal 07/10/23: 1.? No evidence of hydronephrosis nor nephrocalcinosis. 2.? No obvious renal masses. Labs on day of discharge: Labs from last 24 hours 07/13/23 07/13/23 07/13/23 06:35 06:35 06:12 WBC 8.34 RBC 3.07 L Hgb 9.2 L Hct 29.6 L MCV 96 H MCH 30.0 MCHC 31.1 L RDW 13.4 Plt Count 296 MPV 9.3 Immature Gran % 0.6 Neutrophils % 59.3 Lymphocytes % 28.5 Monocytes % 9.8 Eosinophils % 1.6 Basophils % 0.2 Nucleated RBC % 0.0 Absolute Neutrophils 4.94 Absolute Lymphocytes 2.38 Absolute Monocytes 0.82 H Absolute Eosinophils 0.13 Absolute Basophils 0.02 ABG Sample Site Right Radial ABG pH 7.45 ABG pCO2 46 H ABG pO2 101 ABG HCO3 32 H ABG Total CO2 30 H ABG O2 Saturation 98 ABG Base Excess 8 H Oxygen Liter Flow 2 Sodium 138 Potassium 3.6 Chloride 99 Carbon Dioxide 30.7 Anion Gap 8.3 BUN 22 H Creatinine 0.9 Est GFR (CKD-EPI 2020) 65.44 Glucose 88 Calcium 9.5 Magnesium 1.8 07/12/23 16:30 WBC RBC Hgb Hct MCV MCH MCHC RDW Plt Count MPV Immature Gran % Neutrophils % Lymphocytes % Monocytes % Eosinophils % Basophils % Nucleated RBC % Absolute Neutrophils Absolute Lymphocytes Absolute Monocytes Absolute Eosinophils Absolute Basophils ABG Sample Site Right Radial ABG pH 7.44 ABG pCO2 43 ABG pO2 74 L ABG HCO3 29 H ABG Total CO2 27 ABG O2 Saturation 95 ABG Base Excess 5 H Oxygen Liter Flow 1 Sodium Potassium Chloride Carbon Dioxide Anion Gap BUN Creatinine Est GFR (CKD-EPI 2020) Glucose Calcium Magnesium Preliminary micro results at discharge 07/12/23 09:30 Urine Culture - Preliminary Urine - Clean Catch 07/10/23 10:56 Sputum Culture - Preliminary Sputum Normal [place] PFSH All Active Problems (Updated 07/13/23 @ 13:50 by Ninoska Kaye MD) Acute on chronic respiratory failure with hypoxia and hypercapnia (Acute) Anemia (Chronic) Bronchiectasis with (acute) exacerbation (Acute) Achromobacter pneumonia (Acute) Demand ischemia (Acute) Acute on chronic respiratory failure with hypoxia (Acute) Acute and chronic respiratory failure (Acute) Pulmonary hypertension (Acute) Respiratory failure with hypercapnia (Acute) Respiratory failure with hypoxia (Acute) Discharge planning issues (Acute) DVT prophylaxis (Acute) COPD exacerbation (Acute) Personal history of nicotine dependence (Acute) CAD (coronary artery disease) (Chronic) Dependence on supplemental oxygen (Acute) Postmenopausal (Acute) Pain of right hip joint (Acute) Overweight (Acute) Osteopenia (Acute) Iron deficiency (Acute) Hypertensive disorder (Chronic) Familial combined hyperlipidemia (Acute) Depression (Chronic) COPD (chronic obstructive pulmonary disease) (Chronic) Bronchiectasis (Acute) Angio-edema (Acute) Allergic rhinitis (Acute) Acute exacerbation of chronic obstructive airways disease (Acute) Abnormal findings on diagnostic imaging of breast (Acute) Medical History Closed fracture of thoracic vertebra Surgical History H/O breast reconstruction left nipple removal 10/09/1998 H/O cataract extraction 11/09/16 H/O dilation and curettage Of uterus 10/09/83 H/O esophagogastroduodenoscopy History of colonoscopy 08/09/06 History of right oophorectomy right ovarian cyst Family History Mother Breast cancer Hx of heart artery stent Father Cancer Hx of coronary artery bypass surgery Sister Diabetes Hx of heart artery stent Brother Hypertension Social History Smoking/Tobacco Use Status: Former Tobacco Use tobacco type: cigarettes Quit Date: 10/09/09 Pack-years: 46 Smoking risk assessment performed?: Yes Housing: house Do you feel safe at home: Yes Do you feel safe in your relationship?: Yes Time Spent with Patient Time Spent with Patient: 45-69 minutes Time was spent: preparing to see the patient(eg.review tests), obtaining and/or reviewing separately otained hiistory, ordering medications,tests, procedures, referring, communicating with other health long term acute care registered nurse, indepentently interpreting results, counseling the patient and care coordination
--- NOTE | 2023-07-13 11:47 | PDOC.HHF2F_ITS ---
Home Health Referral Home Health Orders Clinical synopsis of why skilled professionals are needed: Ms Burkett is a 78 year old female with PMHx of chronic hypoxic respiratory failure, normally on 2-2.5 L of O2 by [place], as well as h/o COPD, bronchiectasis, sputum culture positive for Achromobacter xylosoxidans (resistant to tobramycin/amikacin, sensitive to ceftazidime), CAD, pulmonary hypertension, who was a patient on [facility] hospitalist service from 07/04/23 until 07/13/23, having been sent to [facility] ED from the pulmonology office for worsening shortness of breath and failing outpatient course of antibiotics (bactrim and levofloxacin) for COPD/bronchiectasis exacerbation. The patient was on her baseline 2L of O2 by [place] in the ED with evidence of hypercapnia by VBG with pH of 7.25 and pCO2 of 65. She was placed on BiPAP, initiated on ceftazidime, steroids, scheduled and prn nebs, hypertonic saline nebs. An echo was obtained in workup of her pulmonary hypertension. The patient was worse on the morning of 07/07/23 and was transferred to the ICU. She required initiation of the precedex gtt to help her tolerate BiPAP due to anxiety. She did have a presumed type 2 NSTEMI in setting of her worsened respiratory failure, for which she was treated with aspirin and heparin gtt x 48 hrs. For her slight component of fluid overload, she was diuresed. Her condition continued to steadily improve. We were able to wean her precedex gtt. She was transferred out of the ICU on 07/10/23, continuing to use BiPAP HS and prn. She did not qualify for AVAPS ventilator by ABG criteria. She has received 10 days of IV ceftazidime and feels back to her baseline. She is medically stable for discharge home today on 1 L of O2 at rest and with activity. On discharge, her oxygen prescription will be 1-2 L of O2. She is going home on a prednisone taper, stiolto, pulmicort, hypertonic saline, and albuterol nebs. The patient did have hematuria on this admission. She ruled out for a UTI and had a negative renal ultrasound. It is felt to have been due to a traumatic peraza catheter insertion. The peraza catheter was removed, and the patient passed a voiding trial. She should follow up with her PCP and Pulmonology in 1-2 weeks. The patient should also follow up with palliative care, whom she had seen on this admission. She could benefit from home health PT. Medical diagnosis necessitation home health referral: COPD, pneumonia, Ambulatory dysfunction Registered Nurse: Check all that apply Instruct on new or changed medication(s)/assess compliance: Ordered Assess for exacerbation of medical condition, instruct patient/caregivers on signs and symptoms to report for early detection: Ordered Physical Therapist: Check all that apply Increase strength & endurance for safe mobility at home: Ordered To design/establish home maintenance program: Ordered Fall reduction therapy program for patient with history of frequent falls: Ordered Home safety evaluation and teaching/gait training including stair management (if applicable): Ordered Better Breathing Program: Ordered Home Bound Status Requires the aid of supportive device (check all that apply): Walker Describe why leaving home would require a considerable and taxing effort: Requires frequent rest periods and Oxygen Encounter Date and Reason: I certify that a FTF encounter for this patient was performed on July 13, 2023 and that such encounter was related to the primary reason the patient requires home health services. The encounter was conducted in the following manner: * By me as the certifying physician, OPERATIONS CONSULTANT, PA or * By an inpatient physician, OPERATIONS CONSULTANT or PA during an inpatient stay who communicated findings to me, Certification And Authentication I certify that I composed the above information based on my clinical judgment relating to this patient's medical condition and, if applicable, clinical findings communicated to me by the NPP or inpatient physician who performed the FTF encounter. Name of Provider that will be monitoring home health services: JULIA BILLY
--- NOTE | 2023-07-13 15:45 | CMDISCH_ITS ---
Date of service: 07/13/23 Time of Service: 15:45 LACE Index Scoring Tool Questions: Length of Stay (in days): 7 - 13 Was the patient admitted via the E.D.?: Yes Comorbidities: Chronic Pulmonary Disease E.D. Visits: 0 Answers: Total Score: 10 Risk of Readmission: High Risk Care Management Discharge Plan Reason for Hospitalization: COPD Discharge Plan: Yojana returned home today with new orders for HH RN, PT, OT, [employer]; CM faxed face to face, demos and discharge summary to [facility] to initiate services. DEVAN called [facility] to inform them of her discharge, as her daughter, Estela, is very interested in discussing next steps and exterminator helper planning with the options counselor. Estela drove Marcie home via private vehicle. She will follow up with her PCP, pulmonology, and her discharge plan of care. She is happy to be returning home today. Patient/Family Education Needs: Review discharge instructions and limitations, discussion of self care needs including ask me three and goals of care. Services Needed at Discharge: Home Health Care Services (new HH RN, PT, OT, [employer]; [facility]
--- NOTE | 2023-07-14 15:19 | INDS_ITS ---
PT Notes Visit Reasons: COPD Inpatient Physical Therapy Discharge Summary Dates of Service: 07/10/23 - 07/13/23 Date: 07/14/23 Referring Doctor: Ninoska Kaye MD PT Orders: PT CONSULT: limited ability Precautions: Standard This document serves as a summary of care. No PT services were provided on this date. Patient Profile/Admitting Diagnosis: 77yo female with COPD exacerbation in setting of pneumonia. On supplemental O2 at baseline. Admitted for COPD exacerbation on 07/04/23, and participated in 2 PT sessions prior to being transferred to ICU for hypoxia. She was re-evaluated by PT on 07/10/23, and was able to participate in 3 PT sessions prior to being deemed medically stable and transferring home with family support and PT. PMHX: All Active Problems? COPD exacerbation (Acute) Personal history of nicotine dependence (Acute) CAD (coronary artery disease) (Chronic) Dependence on supplemental oxygen (Acute) Postmenopausal (Acute) Pain of right hip joint (Acute) Overweight (Acute) Osteopenia (Acute) Iron deficiency (Acute) Hypertensive disorder (Chronic) Familial combined hyperlipidemia (Acute) Depression (Chronic) COPD (chronic obstructive pulmonary disease) (Chronic) Bronchiectasis (Acute) Angio-edema (Acute) Allergic rhinitis (Acute) Acute exacerbation of chronic obstructive airways disease (Acute) Abnormal findings on diagnostic imaging of breast (Acute) Medical History? Closed fracture of thoracic vertebra Surgical History? H/O breast reconstruction left nipple removal 10/09/1998H/O cataract extraction 11/09/16H/O dilation and curettage Of uterus 10/09/83H/O esophagogastroduodenoscopy History of colonoscopy 08/09/06History of right oophorectomy right ovarian cyst Social History/Home Situation: Lives in a private home with her 3 steps to enter with rail. Two-story, but resides on one level. Owns WC, RW, and commode - although does not use them at baseline. She is using 2L o2 at baseline chronically for management of COPD Equipment Owned/DME: RW, WC, commode Subjective: none obtained Objective: ROM: Right Upper Extremity: WNL Left Upper Extremity: WNL Right Lower Extremity: WNL Left Lower Extremity: WNL Strength: Right Upper Extremity: Grossly 3+/4 throughout Left Upper Extremity: Grossly 3+/5 throughout Right Lower Extremity: Grossly 3+/5 throughout Left Lower Extremity: Grossly 3+/5 throughout Bed Mobility/Transfers: ?Rolling L/R: independent ?Supine-sit: independent with extra time ?Sit-supine: independent ?Sit-stand: independent ?Stand-sit: independent ?Bed-Chair: independent ?Chair-bed: independent ? Gait: Able to demonstrate short, in-room ambulation with FWW. Balance: Static Sitting: Good Dynamic Sitting: Good Static Standing: Poor, light headed Dynamic Standing: Poor, light headed Assessment: Patient is a 77 year old female referred to physical therapy services with the diagnosis of COPD exacerbation in setting of pneumonia, allowing for limited activity tolerance. She participated in PT intervention and demonstrated significant improvement in independence in bed mobility and transfers, although with continued limitations in activity tolerance. Appropriate for d/c from PT services in acute care setting, with recommendation for further rehabilitation via PT. Goals: Goals X1 week - all at baseline of 2L 02 1. Supine-Sit independent (MET) 2. Sit-Supine independent(MET) 3. Sit-Stand independent at RW (MET) 4. Stand-Sit independent from RW (MET) 5. Bed-Chair supervision with RW(MET) 6. Chair-Bed supervision with RW (MET) 7. Gait supervision, RW, 30 ft (Progressing Toward) 8. Stairs 3, with 1 rail, CG (NOT MET) 9. Independent with home exercise program (NOT MET) Plan of Care/Treatment Plan: D/C from PT in acute care setting DISCHARGE RECOMMENDATIONS: Home with services HHPT TREATMENT CODE/TIME: none Matilda Staples, PT, DPT [facility]
== END 2023-07-13 14:30 | disposition home health service (06) | DRG 177 ==
LOC: ER 21:29 → MS 22:07 → ICU 07-07 12:55
PROVIDERS: Family Medicine; Internal Medicine; Nurse Practitioner Family; Admitting Provider General Practice; Emergency Provider Registered Nurse Emergency; PCP Registered Nurse; Visit Provider General Practice
DX: J15.69 Pneumonia due to other Gram-negative bacteria (principal); J96.21 Acute and chronic respiratory failure with hypoxia; J96.22 Acute and chronic respiratory failure with hypercapnia; N17.0 Acute kidney failure with tubular necrosis; Z16.24 Resistance to multiple antibiotics; I24.89 Other forms of acute ischemic heart disease; J47.0 Bronchiectasis with acute lower respiratory infection; J47.1 Bronchiectasis with (acute) exacerbation; T83.83XA Hemorrhage due to genitourinary prosthetic devices, implants and grafts, initial encounter; Z99.81 Dependence on supplemental oxygen; Z66 Do not resuscitate; Z87.891 Personal history of nicotine dependence; I25.10 Atherosclerotic heart disease of native coronary artery without angina pectoris; M85.80 Other specified disorders of bone density and structure, unspecified site; I10 Essential (primary) hypertension; E78.49 Other hyperlipidemia; F32.A Depression, unspecified; I27.20 Pulmonary hypertension, unspecified; D63.8 Anemia in other chronic diseases classified elsewhere; D51.9 Vitamin B12 deficiency anemia, unspecified; R30.0 Dysuria
CPT/HCPCS: 36415; 36592; 76770; 80048; 80053; 80076; 82805; 85027; 87040; 87637; 90694; 93005; 93306; 94618; 94640; 96365; 96366; 96376; 97110; 97162; 97530; 99233; 99285; 99291; J1650; 36600; 71045; 81003; 81015; 82607; 82728; 82746; 83540; 83550; 83605; 83735; 83880; 84443; 84484; 85018; 85025; 85730; 87070; 87086; 87205; 93010; 94660; 94664; 94667; 94668; 94760; 99222; 99232; 99239; J0713; J1940; J1941; J2060; J2270; J2930; J7512; J7613; J7620; J7626

== ENCOUNTER → 2023-07-20 13:48 | Outpatient (BNVA) | payer MEDICARE, SELFPAY | PROVIDERS: PCP Registered Nurse; Referring Provider Registered Nurse; Visit Provider Physician Assistant Surgical | DX: J44.9 Chronic obstructive pulmonary disease, unspecified (principal); Z99.81 Dependence on supplemental oxygen; Z87.891 Personal history of nicotine dependence; J47.9 Bronchiectasis, uncomplicated | CPT/HCPCS: 99214 ==

== ENCOUNTER → 2023-08-08 11:23 | Outpatient (BNVA) | payer MEDICARE, SELFPAY | PROVIDERS: PCP Registered Nurse; Referring Provider Registered Nurse; Visit Provider Student in an Organized Health Care Education/Training Program | DX: J47.9 Bronchiectasis, uncomplicated (principal); J44.9 Chronic obstructive pulmonary disease, unspecified; Z79.899 Other long term (current) drug therapy; Z99.81 Dependence on supplemental oxygen; Z87.891 Personal history of nicotine dependence | CPT/HCPCS: 99213 ==

== ENCOUNTER → 2023-09-07 13:32 | Outpatient (BNVA) | payer MEDICARE, MEDICAID, SELFPAY | PROVIDERS: PCP Registered Nurse; Referring Provider Registered Nurse; Visit Provider Student in an Organized Health Care Education/Training Program | DX: J44.9 Chronic obstructive pulmonary disease, unspecified (principal); Z87.891 Personal history of nicotine dependence; Z79.51 Long term (current) use of inhaled steroids; J47.9 Bronchiectasis, uncomplicated; Z99.81 Dependence on supplemental oxygen; R91.1 Solitary pulmonary nodule | CPT/HCPCS: 99214 ==